=== PATIENT | female | born 1950 | race Caucasian/White ===

== ENCOUNTER 2017-02-07 11:37 | Inpatient (IN) | payer OTHER ==
[~2017-02-07] VITALS: Ht 165.1 cm; Wt 87.6 kg
[~2017-02-07 11:37] MED LIST: ASCO500T3 PO; ATOR40TA59 PO; BROM3DRO OS; CARV40CP PO; CHOL10003 PO; CIPR500T94 PO; CLON0.2T PO; CRAN500C6 PO; DIFL5DRO2 OS; EZET10TA18 PO; FENO160T PO; FERR325C PO; FLUT16SP NS; GLIP10TA13 PO; INSU100I17 SQ; INSU100V13 SQ; IPRA15SP NS; LIRA0.6P2 SQ; LISI1TAB5 PO; MULT-208 PO; RANI150C PO
[2017-02-07] MEDS ORDERED: levOFLOXacin PER PHARMACY. MC PRN (12:30)
[2017-02-07 12:39] LABS: BASO % 0 % (0-3); EOS % 1 % (0-3); HEMATOCRIT 29.9 % (36.0-47.0); HEMOGLOBIN 9.8 g/dL (12.0-15.5); LYMPH # 1.2 x10^3/uL (1.0-4.8); LYMPH % 10 % (24-48); MEAN CORPUSCULAR HEMOGLOBIN 29 pg (25-35); MEAN CORPUSCULAR HGB CONC 33 g/dL (31-37); MEAN CORPUSCULAR VOLUME 89 fL (79-100); MONO % 6 % (0-9); NEUT % 83 % (31-73); PLATELET COUNT 451 x10^3/uL (140-400); RED BLOOD COUNT 3.34 x10^6/uL (3.50-5.40); RED CELL DISTRIBUTION WIDTH 14.5 % (11.5-14.5); WHITE BLOOD COUNT 11.4 x10^3/uL (4.0-11.0)
[2017-02-07] MEDS ORDERED: VANCOMYCIN 1.5 GM in IV DEXTROSE 5 %-0.2 % NACL 500 ML IV ONE (12:45)
[2017-02-07 12:51] LABS: CALCIUM 9.5 mg/dL (8.5-10.1); CREATININE 2.5 mg/dL (0.6-1.0); GFR 19.4; POTASSIUM 4.5 mmol/L (3.5-5.1)
[2017-02-07 13:04] LABS: ALBUMIN 2.5 g/dL (3.4-5.0); ALBUMIN/GLOBULIN RATIO 0.4 (1.0-1.7); TOTAL BILIRUBIN 0.4 mg/dL (0.2-1.0); TOTAL PROTEIN 8.8 g/dL (6.4-8.2)
[2017-02-07] MEDS ORDERED: ONDANSETRON PF 4 MG/2 ML VIAL. IV PRN (13:15)
[2017-02-07] MEDS ORDERED: fentaNYL PF VIAL 100 MCG/2 ML VIAL IV PRN (13:15)
[2017-02-07] MEDS ORDERED: ACETAMINOPHEN 325 MG TABLET. PO PRN (13:15)
--- NOTE | 2017-02-07 13:21 | RAD ---
Single view of the Chest 02/07/2017 2:45 PM Indication: diabetic foot ulcer Comparison: Abdominal series January 02, 2014 Findings: There is no focal consolidation or infiltrate identified. There is no effusion or aortic calcification again noted. Heart size is normal.. No osseous abnormality is identified. Impression: No evidence of acute cardiopulmonary process.
[2017-02-07] MEDS: IV NORMAL SALINE 1000ML BAG 1,000 ML IV SCH ×3 (13:25→21:27)
--- NOTE | 2017-02-07 13:36 | RAD ---
EXAM: Right foot 3 views. HISTORY: Diabetic ulcer. COMPARISON: None. FINDINGS: There is a soft tissue defect along the medial aspect of the midfoot. There is no underlying osseous erosion suggestive of osteomyelitis. There is pes planus. Neuropathic arthropathy is moderate within the midfoot. The Lisfranc alignment appears preserved. There is diffuse soft tissue swelling. Osteopenia is moderate. No fractures are identified. There is a moderate plantar calcaneal spur. IMPRESSION: 1. No clear acute osteomyelitis by radiographs. 2. Mid foot neuropathic arthropathy with pes planus.
[2017-02-07 14:13] LABS: % BASOS 2 % (0-3); % EOS 2 % (0-5); OVALOCYTES OCC; PLT ESTIMATE INCREASED (ADEQUATE); POLYCHROMASIA SLIGHT; STOMATOCYTES OCC
[2017-02-07 14:14] LABS: TOXIC GRANULATION MOD
--- NOTE | 2017-02-07 14:28 | EKG ---
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
[2017-02-07 15:05] LABS: BILIRUBIN,URINE NEGATIVE (NEG); GLUCOSE,URINE NEGATIVE (NEG); NITRITE,URINE NEGATIVE (NEG); PH,URINE 6.5; PROTEIN,URINE NEGATIVE (NEG-TRACE)
[2017-02-07] MEDS: VANCOMYCIN PER PHARMACY MC PRN (15:06)
[2017-02-07 15:17] VITALS: BP 169/84
[2017-02-07 15:18] LABS: BACTERIA,URINE FEW /HPF (0-FEW); RBC,URINE 0 /HPF (0-2); SQUAMOUS EPITHELIAL CELL,UR OCC /LPF; WBC,URINE OCC /HPF (0-4)
[2017-02-07 15:19] VITALS: BP 169/84
--- NOTE | 2017-02-07 15:56 | PHYS DOC ---
Past Medical History Past Medical History: Diabetes-Type II, Hypertension, Other Additional Past Medical Histor: stage 3 kidney disease Past Surgical History: Appendectomy, Cholecystectomy, , Tonsillectomy , Other Alcohol Use: Occasionally Drug Use: None Adult General Chief Complaint Chief Complaint: FOOT INJURY PAIN HPI HPI Patient is a 66 year old female with history significant for hypertension, diabetes, chronic renal insufficiency, we denies any history of liver or lung problems. Patient reports she is status post a cholecystectomy and appendectomy. Patient has any tobacco alcohol or drugs. Patient reports that she has an allergy to penicillin for which she gets a rash. Patient also has an allergy to amlodipine. Patient presents ER today complaining of swelling redness and tenderness to her right foot. Patient has any fevers shakes chills nausea vomiting diarrhea. Patient has any cough cold Raynaud's. Patient reports that the symptoms and swelling started yesterday evening. Reports that she started taking some medication [id number] for her pain however her pain continued to worsen. Review of systems: Constitutional: Denies fever or chills Eyes: Denies change in visual acuity, redness, or eye pain HENT: Denies nasal congestion or sore throat Respiratory: Denies cough or shortness of breath All other systems were reviewed and found to be within normal limits, except as documented in this note. Physical exam: Constitutional: Well developed, well nourished, no acute distress, non-toxic appearance. HENT: Normocephalic, atraumatic, bilateral external ears normal, nose normal. Eyes: PERRLA, EOMI, conjunctiva normal, no discharge. Neck: Normal range of motion, no tenderness, supple, no stridor. Cardiovascular: Heart rate regular rhythm, Lungs & Thorax: Bilateral breath sounds clear to auscultation Abdomen: No abdominal distention. Skin: Warm, dry, no erythema, no rash. Back: Normal spinal curvature Extremities: Neurologic: Alert and oriented X 3, normal motor function, normal sensory function, no focal deficits noted. Psychologic: Affect normal, judgement normal, mood normal. Patient's ER physical exam was most unremarkable: Patient with significant swelling and also to her right foot. Although the patient reports that she first noticed it yesterday I find this difficult to believe given the significant swelling and ulceration on the nursing on that foot. It is likely that the patient's symptoms have been going on for several days however the patient may not have noticed. EKG as interpreted by ER physician reveals: Normal sinus rhythm without ST-T wave abnormality. No evidence of ST elevation CO. Chest x-ray as interpreted by ER physician reveals: The heart no infiltrates or effusions. Foot x-ray: No evidence of osteomyelitis Labs reviewed: Assessment and plan: 1. Diabetic foot ulcer. Patient has been started on IV antibiotics as well as sepsis protocol. Patient's lactic acid only 1.3. Patient's BUN/creatinine are markedly elevated at 75 and 2.5. Patient will need to be admitted for IV antibiotics and further observation. 2. Chronic renal insufficiency. Patient with a history of chronic renal insufficiency. 3. Diabetes: We will continue to monitor patient's blood sugar on the ED. Patient admitted to the service of Dr. Norwood. Dr. Norwood is agreed to assist with the further care of this patient. Current Medications Current Medications Current Medications Medications (Trade) Dose Ordered Sig/Nasim Start Time Stop Time Status Last Admin Dose Admin Levofloxacin/ Dextrose 150 ml @ 100 mls/hr 1X ONCE 02/07/17 12:45 02/07/17 14:14 DC 02/07/17 13:35 100 MLS/HR Levofloxacin/ Dextrose (Levaquin Per Pharmacy) 1 each PRN DAILY PRN 02/07/17 12:30 Sodium Chloride 1,000 ml @ 2,454 mls/hr Q25M 02/07/17 12:30 02/07/17 13:30 DC 02/07/17 21:27 2,454 MLS/HR Vancomycin HCl (Vanco Per Pharmacy) 1 each PRN DAILY PRN 02/07/17 12:30 02/07/17 15:06 1 EACH Vancomycin HCl 1.5 gm/Dextrose/ Sodium Chloride 500 ml @ 250 mls/hr 1X ONCE 02/07/17 12:45 02/07/17 14:44 DC 02/07/17 13:26 250 MLS/HR Allergies Allergies Allergies Coded Allergies Type Severity Reaction Last Updated Verified Penicillins Allergy Intermediate 11/22/16 No amlodipine Allergy Intermediate Swelling 11/22/16 Yes Current Patient Data Vital Signs Vital Signs Date Time Temp Pulse Resp B/P (MAP) Pulse Ox O2 Delivery O2 Flow Rate FiO2 02/07/17 11:46 98.8 92 16 190/92 (124) 99 Room Air 98.8 Lab Values Laboratory Tests Test 02/07/17 12:07 White Blood Count 11.4 x10^3/uL (4.0-11.0) H Red Blood Count 3.34 x10^6/uL (3.50-5.40) L Hemoglobin 9.8 g/dL (12.0-15.5) L Hematocrit 29.9 % (36.0-47.0) L Mean Corpuscular Volume 89 fL (79-100) Mean Corpuscular Hemoglobin 29 pg (25-35) Mean Corpuscular Hemoglobin Concent 33 g/dL (31-37) Red Cell Distribution Width 14.5 % (11.5-14.5) Platelet Count 451 x10^3/uL (140-400) H Neutrophils (%) (Auto) 83 % (31-73) H Lymphocytes (%) (Auto) 10 % (24-48) L Monocytes (%) (Auto) 6 % (0-9) Eosinophils (%) (Auto) 1 % (0-3) Basophils (%) (Auto) 0 % (0-3) Neutrophils # (Auto) 9.4 x10^3uL (1.8-7.7) H Lymphocytes # (Auto) 1.2 x10^3/uL (1.0-4.8) Monocytes # (Auto) 0.7 x10^3/uL (0.0-1.1) Eosinophils # (Auto) 0.1 x10^3/uL (0.0-0.7) Basophils # (Auto) 0.0 x10^3/uL (0.0-0.2) Segmented Neutrophils % 80 % (35-66) H Lymphocytes % 11 % (24-48) L Monocytes % 5 % (0-10) Eosinophils % 2 % (0-5) Basophils % 2 % (0-3) Toxic Granulation Mod Platelet Estimate Increased (ADEQUATE) Platelet Clumps, EDTA Present Polychromasia Slight Ovalocytes Occ Stomatocytes Occ Sodium Level 136 mmol/L (136-145) Potassium Level 4.5 mmol/L (3.5-5.1) Chloride Level 100 mmol/L (98-107) Carbon Dioxide Level 27 mmol/L (21-32) Anion Gap 9 (6-14) Blood Urea Nitrogen 75 mg/dL (7-20) H Creatinine 2.5 mg/dL (0.6-1.0) H Estimated GFR (Cockcroft-Gault) 19.4 BUN/Creatinine Ratio 30 (6-20) H Glucose Level 246 mg/dL (70-99) H Lactic Acid Level 1.3 mmol/L (0.4-2.0) Calcium Level 9.5 mg/dL (8.5-10.1) Total Bilirubin 0.4 mg/dL (0.2-1.0) Aspartate Amino Transferase (AST) 39 U/L (15-37) H Alanine Aminotransferase (ALT) 31 U/L (14-59) Alkaline Phosphatase 108 U/L (46-116) Total Protein 8.8 g/dL (6.4-8.2) H Albumin 2.5 g/dL (3.4-5.0) L Albumin/Globulin Ratio 0.4 (1.0-1.7) L Laboratory Tests 02/07/17 12:07 Laboratory Tests 02/07/17 12:07 EKG EKG [] Radiology/Procedures Radiology/Procedures [] Course & Med Decision Making Course & Med Decision Making Pertinent Labs and Imaging studies reviewed. (See chart for details) [] Dragon Disclaimer Dragon Disclaimer This electronic medical record was generated, in whole or in part, using a voice recognition dictation system. Departure Departure Impression: Primary Impression: Diabetic foot ulcer Additional Impressions: Cellulitis Renal failure Disposition: ADMITTED INPATIENT Admitting Physician: Lisa Marcos Condition: STABLE Referrals: BETTIE HICKS MD (PCP) Problem Qualifiers CHUCKY LORENZANA MD Feb 07, 2017 15:56
[2017-02-07] MEDS ORDERED: CARV40CP PO (16:49)
[2017-02-07] MEDS ORDERED: ATOR80TA72 PO (16:52)
[2017-02-07] MEDS ORDERED: INSU100I27 SQ (16:58)
[2017-02-07] MEDS ORDERED: INSU100I17 SQ (17:00)
[2017-02-07] MEDS ORDERED: DARB60DI SQ (17:07)
[2017-02-07] MEDS ORDERED: DEXTROSE 50% 25 GM / 50ML DISP.SYRIN. IV PRN (18:00)
--- NOTE | 2017-02-07 18:35 | HP ---
ADMIT DATE: 02/07/2017 CHIEF COMPLAINT: Foot pain. HISTORY OF PRESENT ILLNESS: The patient is a pleasant 66-year-old female who has diabetes. Basically, she presents with a right foot diabetic lesion. It has been occurring for several months, getting worse. She tried taking some uhmf-hky-ykbikrg medicines, but that is not working. She has associated pain. I discussed the case with the ER physician. We are going to admit the patient and consult Podiatry. PAST MEDICAL HISTORY: Diabetes, hypertension, chronic kidney disease with a 25% GFR. PAST SURGICAL HISTORY: Appendectomy, cholecystectomy, , tonsillectomy. ALLERGIES: PENICILLIN, AMLODIPINE. FAMILY HISTORY: Diabetes. SOCIAL HISTORY: She does not drink, smoke or take drugs. MEDICATIONS: Reviewed, please refer to the MRAD. REVIEW OF SYSTEMS: GENERAL: No history of weight change, weakness or fevers. SKIN: No bruising, hair changes or rashes. EYES: No blurred, double or loss of vision. NOSE AND THROAT: No history of nosebleeds, hoarseness or sore throat. HEART: No history of palpitations, chest pain or shortness of breath on exertion. LUNGS: Denies cough, hemoptysis, wheezing or shortness of breath. GASTROINTESTINAL: Denies changes in appetite, nausea, vomiting, diarrhea or constipation. GENITOURINARY: No history of frequency, urgency, hesitancy or nocturia. NEUROLOGIC: Denies history of numbness, tingling, tremor or weakness. PSYCHIATRIC: No history of panic, anxiety or depression. ENDOCRINE: No history of heat or cold intolerance, polyuria or polydipsia. EXTREMITIES: She complains of right foot pain. PHYSICAL EXAMINATION: VITAL SIGNS: Temperature afebrile, pulse 90, respirations 18, blood pressure 166/72. GENERAL: She is alert, cooperative, eating dinner. HEART: Normal S1, S2. LUNGS: Clear. ABDOMEN: Soft. EXTREMITIES: The right lower extremity has clean, dry and intact bandaging on the foot. Please see the pictures. There is a 4 x 2.5 cm diabetic lesion. ENDOCRINE: No thyromegaly. LYMPHATICS: No cervical nodes. HEMATOPOIETIC: No bruising. HEMATOLOGY: White count 11, hemoglobin 10, platelets 451. Electrolytes are normal other than BUN of 75 and a creatinine of 2.5. Urinalysis negative. ASSESSMENT AND PLAN: Diabetic foot lesion with severe peripheral vascular disease with leukocytosis, anemia, and acute on chronic renal failure with severe azotemia and hyperglycemia. The patient has been admitted. We will consult Podiatry and give her IV antibiotics, gentle IV hydration, consult Dr. Pop of the Nephrology service. Wound care nurse to evaluate and treat. Continue home medicines. PROGNOSIS: Guarded. SCOOBY TURCIOS DO DR: DEBORAH/maria fernanda JOB#: [id number] / [id number]
[2017-02-07] MEDS: INSULIN ASPART 300 UNITS/3 ML INSULN.PEN SQ SCH ×2 (19:23→21:21)
[2017-02-07 19:30] VITALS: BP 151/65
[2017-02-07] MEDS ORDERED: FAMOTIDINE 20 MG TABLET. PO PRN (21:00)
[2017-02-07] MEDS: LACTOBACILLUS RHAMNOSUS GG 1 CAPSULE. PO SCH (21:22)
[2017-02-07] MEDS: cloNIDine HCL 0.2 MG TABLET PO SCH (21:22)
[2017-02-07] MEDS: CHOLECALCIFEROL (VITAMIN D3) 1,000 UNIT TABLET PO SCH (21:22)
[2017-02-07] MEDS: FLUTICASONE 50MCG/NASAL SPRAY 16GM BOTTLE. NS SCH (21:23)
[2017-02-07] MEDS: INSULIN DETEMIR 300 UNITS/3 ML INSULN.PEN. SQ SCH (21:27)
[2017-02-07 23:12] VITALS: BP 137/44
[2017-02-08 03:22] VITALS: BP 156/65
[2017-02-08 07:00] VITALS: BP 120/69
[2017-02-08] MEDS: glipiZIDE 5 MG TABLET PO SCH ×2 (08:56→17:03)
[2017-02-08] MEDS: FERROUS SULFATE 325 MG TABLET. PO SCH ×2 (08:57→17:04)
[2017-02-08] MEDS: CARVEDILOL 12.5 MG TABLET. PO SCH ×2 (08:57→17:04)
[2017-02-08] MEDS: ATORVASTATIN CALCIUM 40 MG TABLET. PO SCH (08:58)
[2017-02-08] MEDS: cloNIDine HCL 0.2 MG TABLET PO SCH ×3 (08:58→21:03)
[2017-02-08] MEDS: hydroCHLOROthiazide 12.5 MG CAPSULE PO SCH (08:58)
[2017-02-08] MEDS: LACTOBACILLUS RHAMNOSUS GG 1 CAPSULE. PO SCH ×2 (08:58→21:02)
[2017-02-08] MEDS: FENOFIBRATE,MICRONIZED 134 MG CAPSULE PO SCH (08:58)
[2017-02-08] MEDS: LISINOPRIL 20 MG TABLET PO SCH (08:59)
[2017-02-08] MEDS: MULTIVITAMIN with MINERAL TABLET. PO SCH (08:59)
[2017-02-08] MEDS: ASCORBIC ACID 500 MG TABLET PO SCH (08:59)
[2017-02-08] MEDS: EZETIMIBE 10 MG TABLET. PO SCH (08:59)
[2017-02-08] MEDS: CHOLECALCIFEROL (VITAMIN D3) 1,000 UNIT TABLET PO SCH ×2 (08:59→21:03)
[2017-02-08] MEDS: INSULIN ASPART 300 UNITS/3 ML INSULN.PEN SQ SCH ×7 (09:00→21:00)
[2017-02-08] MEDS ORDERED: NON FORMULARY ITEM (Cranberry Extract (Cranberry) 500 MG) PO SCH (09:00)
[2017-02-08] MEDS: NON FORMULARY ITEM (Liraglutide (Victoza 3-Pak) 1.8 MG) SQ SCH (09:19)
[2017-02-08 11:01] VITALS: BP 125/54
[2017-02-08] MEDS ORDERED: ONDANSETRON PF 4 MG/2 ML VIAL. IV PRN (13:00)
[2017-02-08] MEDS: VANCOMYCIN PER PHARMACY MC PRN (14:48)
--- NOTE | 2017-02-08 14:51 | PDOC ---
PROGRESS NOTES Chief Complaint Chief Complaint 1. DM wound, draining RT medial side 2. DM 2 with hypoglycemia - hgba1c 5 3,. CKD 4, anemia of CKD stable 5,. Obesity BMI 31 6. Hypoglycemia History of Present Illness History of Present Illness Hypoglycemic this lunch - she claims she never gets that at home hgba1c 5 plus recently On hefty doses insulin (20 TID and 42 qhs) LAst saw dr heath as OP novmeber, "everything good" Wound inspected - is draining Dm x 7-8 yrs now Plan: Get ortho consult since wound is draining NO signs of osteo on xray ON IV levaquin q48 hrs bec of renal fcn Add esr tmr Dec novolog from 20 to 10 TID meal times, Keep OHA for now Keep levemir for now (BS in 200s in AM) [place] Vitals Vitals Vital Signs Date Time Temp Pulse Resp B/P (MAP) Pulse Ox O2 Delivery O2 Flow Rate FiO2 02/08/17 13:55 68 125/54 02/08/17 11:01 98.6 20 97 Room Air 98.6 Physical Exam General: Alert, Oriented X3, Cooperative Heart: Regular rate, Normal S1, Normal S2 Lungs: Clear Abdomen: Normal bowel sounds, Soft Extremities: No clubbing, No cyanosis Skin: Other (draining dorsal wound, medial side, creamy draiange, non foul smlelling, swelling RT dorsum foot, some pain on exam, round wound) Labs LABS Laboratory Tests Test 02/07/17 15:15 02/07/17 15:24 02/07/17 20:44 02/08/17 07:28 Lactic Acid Level 1.3 mmol/L (0.4-2.0) Glucose (Fingerstick) 205 mg/dL (70-99) 142 mg/dL (70-99) 124 mg/dL (70-99) Test 02/08/17 11:22 02/08/17 11:46 Glucose (Fingerstick) 65 mg/dL (70-99) 68 mg/dL (70-99) Review of Systems Review of Systems foot pain, all else is neg 14 pt reviewed Assessment and Plan Assessmemt and Plan Problems Medical Problems: (1) Renal failure Status: Acute Problems: Comment Review of Relevant I have reviewed the following items gerson (where applicable) has been applied. Labs Laboratory Tests Test 02/07/17 12:07 02/07/17 14:45 02/07/17 15:15 02/07/17 15:24 White Blood Count 11.4 x10^3/uL (4.0-11.0) Red Blood Count 3.34 x10^6/uL (3.50-5.40) Hemoglobin 9.8 g/dL (12.0-15.5) Hematocrit 29.9 % (36.0-47.0) Mean Corpuscular Volume 89 fL (79-100) Mean Corpuscular Hemoglobin 29 pg (25-35) Mean Corpuscular Hemoglobin Concent 33 g/dL (31-37) Red Cell Distribution Width 14.5 % (11.5-14.5) Platelet Count 451 x10^3/uL (140-400) Neutrophils (%) (Auto) 83 % (31-73) Lymphocytes (%) (Auto) 10 % (24-48) Monocytes (%) (Auto) 6 % (0-9) Eosinophils (%) (Auto) 1 % (0-3) Basophils (%) (Auto) 0 % (0-3) Neutrophils # (Auto) 9.4 x10^3uL (1.8-7.7) Lymphocytes # (Auto) 1.2 x10^3/uL (1.0-4.8) Monocytes # (Auto) 0.7 x10^3/uL (0.0-1.1) Eosinophils # (Auto) 0.1 x10^3/uL (0.0-0.7) Basophils # (Auto) 0.0 x10^3/uL (0.0-0.2) Segmented Neutrophils % 80 % (35-66) Lymphocytes % 11 % (24-48) Monocytes % 5 % (0-10) Eosinophils % 2 % (0-5) Basophils % 2 % (0-3) Toxic Granulation Mod Platelet Estimate Increased (ADEQUATE) Platelet Clumps, EDTA Present Polychromasia Slight Ovalocytes Occ Stomatocytes Occ Sodium Level 136 mmol/L (136-145) Potassium Level 4.5 mmol/L (3.5-5.1) Chloride Level 100 mmol/L (98-107) Carbon Dioxide Level 27 mmol/L (21-32) Anion Gap 9 (6-14) Blood Urea Nitrogen 75 mg/dL (7-20) Creatinine 2.5 mg/dL (0.6-1.0) Estimated GFR (Cockcroft-Gault) 19.4 BUN/Creatinine Ratio 30 (6-20) Glucose Level 246 mg/dL (70-99) Lactic Acid Level 1.3 mmol/L (0.4-2.0) 1.3 mmol/L (0.4-2.0) Calcium Level 9.5 mg/dL (8.5-10.1) Total Bilirubin 0.4 mg/dL (0.2-1.0) Aspartate Amino Transf (AST/SGOT) 39 U/L (15-37) Alanine Aminotransferase (ALT/SGPT) 31 U/L (14-59) Alkaline Phosphatase 108 U/L (46-116) Total Protein 8.8 g/dL (6.4-8.2) Albumin 2.5 g/dL (3.4-5.0) Albumin/Globulin Ratio 0.4 (1.0-1.7) Urine Color Yellow Urine Clarity Clear Urine pH 6.5 Urine Specific [place] 1.015 Urine Protein Negative mg/dL (NEG-TRACE) Urine Glucose (UA) Negative mg/dL (NEG) Urine Ketones (Stick) Negative mg/dL (NEG) Urine Blood Negative (NEG) Urine Nitrite Negative (NEG) Urine Bilirubin Negative (NEG) Urine Urobilinogen Dipstick 1.0 mg/dL (0.2 mg/dL) Urine Leukocyte Esterase Negative (NEG) Urine RBC 0 /HPF (0-2) Urine WBC Occ /HPF (0-4) Urine Squamous Epithelial Cells Occ /LPF Urine Bacteria Few /HPF (0-FEW) Glucose (Fingerstick) 205 mg/dL (70-99) Test 02/07/17 20:44 02/08/17 07:28 02/08/17 11:22 02/08/17 11:46 Glucose (Fingerstick) 142 mg/dL (70-99) 124 mg/dL (70-99) 65 mg/dL (70-99) 68 mg/dL (70-99) Laboratory Tests Test 02/07/17 15:15 02/07/17 15:24 02/07/17 20:44 02/08/17 07:28 Lactic Acid Level 1.3 mmol/L (0.4-2.0) Glucose (Fingerstick) 205 mg/dL (70-99) 142 mg/dL (70-99) 124 mg/dL (70-99) Test 02/08/17 11:22 02/08/17 11:46 Glucose (Fingerstick) 65 mg/dL (70-99) 68 mg/dL (70-99) Microbiology 02/07/17 Blood Culture - Preliminary, Resulted NO GROWTH AFTER 1 DAY 02/07/17 Gram Stain - Final, Complete Medications Current Medications Sodium Chloride 1,000 ml @ 2,454 mls/hr Q25M IV Last administered on 21:27; Start 02/07/17 at 12:30; Stop 02/07/17 at 13:30; Status DC Vancomycin HCl (Vanco Per Pharmacy) 1 each PRN DAILY PRN MC SEE COMMENTS Last administered on 02/07/17 15:06; Start 02/07/17 at 12:30 Levofloxacin/ Dextrose (Levaquin Per Pharmacy) 1 each PRN DAILY PRN MC SEE COMMENTS; Start 02/07/17 at 12:30 Vancomycin HCl 1.5 gm/Dextrose/ Sodium Chloride 500 ml @ 250 mls/hr 1X ONCE IV Last administered on 02/07/17 13:26; Start 02/07/17 at 12:45; Stop 02/07 at 14:44; Status DC Levofloxacin/ Dextrose 150 ml @ 100 mls/hr 1X ONCE IV Last administered on 13:35; Start 02/07/17 at 12:45; Stop 02/07/17 at 14:14; Status DC Ondansetron HCl (Zofran) 4 mg PRN Q8HRS PRN IV NAUSEA/VOMITING; Start at 13:15; Stop 02/08/17 at 13:14; Status DC Fentanyl Citrate (Fentanyl 2ml Vial) 50 mcg PRN Q2HR PRN IV PAIN; Start at 13:15; Stop 02/08/17 at 13:14; Status DC Acetaminophen (Tylenol) 650 mg PRN Q4HRS PRN PO FEVER Last administered on 19:25; Start 02/07/17 at 13:15; Stop 02/08/17 at 13:14; Status DC Levofloxacin/ Dextrose 150 ml @ 100 mls/hr Q48H IV ; Start 02/09/17 at 13:00 Lactobacillus Rhamnosus (Culturelle) 1 cap BID PO Last administered on 08:58; Start 02/07/17 at 21:00 Insulin Aspart (NovoLOG) 0-7 UNITS TIDWMEALS SQ Last administered on 19:23; Start 02/07/17 at 18:00 Dextrose (Dextrose 50%-Water Syringe) 12.5 gm PRN Q15MIN PRN IV SEE COMMENTS; Start 02/07/17 at 18:00 Ascorbic Acid (Vitamin C) 500 mg DAILY PO Last administered on 02/08/17 08:59 ; Start 02/08/17 at 09:00 Vitamin D (Vitamin D3) 1,000 unit BID PO Last administered on 02/08/17 08:59 ; Start 02/07/17 at 21:00 Clonidine HCl (Catapres) 0.2 mg TID PO Last administered on 02/08/17 13:55; Start 02/07/17 at 21:00 Darbepoetin Yuriy (Aranesp) 60 mcg Q2WKS@2100 SQ ; Start 02/21/17 at 21:00 EZETIMIBE (Zetia) 10 mg DAILY PO Last administered on 02/08/17 08:59; Start 02/08/17 at 09:00 Fluticasone Propionate (Flonase) 2 spray HS NS Last administered on 02/07/17 21:23; Start 02/07/17 at 21:00 Insulin Aspart (NovoLOG) 20 units QIDACHS SQ Last administered on 02/08/17 09 :19; Start 02/07/17 at 21:00 Insulin Detemir (Levemir) 42 units HS SQ Last administered on 02/07/17 21:27 ; Start 02/07/17 at 21:00 Atorvastatin Calcium (Lipitor) 80 mg DAILY PO Last administered on 02/08/17 08:58; Start 02/08/17 at 09:00 Carvedilol (Coreg) 25 mg BIDWMEALS PO Last administered on 02/08/17 08:57; Start 02/08/17 at 08:00 Non-Formulary Medication 500 mg DAILY PO ; Start 02/08/17 at 09:00; Status UNV Fenofibrate (Lofibra) 134 mg DAILY PO Last administered on 02/08/17 08:58; Start 02/08/17 at 09:00 Ferrous Sulfate (Feosol) 325 mg BIDWMEALS PO Last administered on 02/08/17 08 :57; Start 02/08/17 at 08:00 Glipizide (Glucotrol) 10 mg BIDBFRMEAL PO Last administered on 02/08/17 08:56 ; Start 02/08/17 at 07:30 Non-Formulary Medication 1.8 mg DAILY SQ ; Start 02/08/17 at 09:00; Status UNV Lisinopril (Prinivil) 20 mg DAILY PO Last administered on 02/08/17 08:59; Start 02/08/17 at 09:00 Multivitamins (Thera M Plus) 1 tab DAILY PO Last administered on 02/08/17 08: 59; Start 02/08/17 at 09:00 Famotidine (Pepcid) 20 mg PRN BID PRN PO DYSPEPSIA; Start 02/07/17 at 21:00 Hydrochlorothiazide (Microzide) 12.5 mg DAILY PO Last administered on 08:58; Start 02/08/17 at 09:00 Ondansetron HCl (Zofran) 4 mg PRN Q6HRS PRN IV NAUSEA/VOMITING; Start at 13:00 Active Scripts Active Reported Aranesp Syringe (Darbepoetin Yuriy In Polysorbat) 60 Mcg/0.3 Ml Disp.syrin 60 Mcg SQ Q2WKS Novolog Flexpen (Insulin Aspart) 100 Unit/1 Ml Insuln.pen 20 Unit SQ QIDACHS Levemir Flextouch (Insulin Detemir) 100 Unit/1 Ml Insuln.pen 42 Units SQ HS Atorvastatin Calcium 80 Mg Tablet 80 Mg PO DAILY Ranitidine Hcl 150 Mg Capsule 150 Mg PO PRN BID PRN Ipratropium [place] 15 Ml [place] 15 Ml NS PRN PRN Fenofibrate 160 Mg Tablet 1 Tab PO DAILY Cranberry (Cranberry Extract) 500 Mg Capsule 500 Mg PO DAILY Victoza 3-Mal (Liraglutide) 0.6 Mg/0.1 Ml Pen.injctr 1.8 Mg SQ DAILY Ascorbic Acid 500 Mg Tablet 500 Mg PO DAILY Iron (Ferrous Sulfate) 325 Mg Capsule.er 325 Mg PO BID Vitamin D3 (Cholecalciferol (Vitamin D3)) 1,000 Unit Tablet 1 Tab PO BID Lisinopril-Hctz 20-12.5 Mg Tab (Lisinopril/Hydrochlorothiazide) 1 Each Tablet 1 Tab PO BID Zetia (Ezetimibe) 10 Mg Tablet 1 Tab PO DAILY Clonidine Hcl 0.2 Mg Tablet 1 Tab PO TID Glipizide 10 Mg Tablet 1 Tab PO BID Coreg Cr (Carvedilol Phosphate) 40 Mg Cpmp.24hr 2 Cap PO DAILY Multi-Day Vitamins (Multivitamin) 1 Each Tablet 1 Tab PO DAILY Fluticasone Propionate Nasal [place] (Fluticasone Propionate) 16 Gm [place].susp 2 [place] NS HS Vitals/I & O Vital Sign - Last 24 Hours 02/07/17 02/07/17 02/07/17 02/07/17 15:17 15:19 19:30 19:50 Temp 98.2 98.2 99.1 98.2 98.2 99.1 Pulse 116 116 99 Resp 16 16 20 B/P (MAP) 169/84 (112) 169/84 (112) 151/65 (93) Pulse Ox 98 98 100 O2 Delivery Room Air Room Air Room Air Room Air 02/07/17 02/07/17 02/08/17 02/08/17 21:22 23:12 03:22 07:00 Temp 101.7 98.2 98.8 101.7 98.2 98.8 Pulse 99 100 90 86 Resp 20 20 20 B/P (MAP) 151/65 137/44 (75) 156/65 (95) 120/69 (86) Pulse Ox 97 98 98 O2 Delivery Room Air Room Air Room Air 02/08/17 02/08/17 02/08/17 02/08/17 08:00 08:57 08:58 08:59 Pulse 86 86 86 B/P (MAP) 120/69 120/69 120/69 O2 Delivery Room Air 02/08/17 02/08/17 11:01 13:55 Temp 98.6 98.6 Pulse 68 68 Resp 20 B/P (MAP) 125/54 (77) 125/54 Pulse Ox 97 O2 Delivery Room Air Intake and Output 02/07/17 02/07/17 02/08/17 15:00 23:00 07:00 Intake Total 1000 ml 400 ml 410 ml Output Total 300 ml 800 ml Balance 1000 ml 100 ml -390 ml KELLEN HORNER MD Feb 08, 2017 14:51
[2017-02-08 15:17] VITALS: BP 118/42
[2017-02-08] MEDS: FUROSEMIDE 40 MG TABLET. PO SCH (17:02)
[2017-02-08] MEDS: VANCOMYCIN 1.25 GM in IV DEXTROSE 5% 250 ML IV SCH (17:05)
[2017-02-08 19:00] VITALS: BP 107/62
--- NOTE | 2017-02-08 20:15 | CONS ---
DATE OF CONSULTATION: 02/08/2017 REQUESTING PHYSICIAN: Hospitalist. REASON FOR CONSULTATION: Renal failure. HISTORY OF PRESENT ILLNESS: This is a 66-year-old female with history of diabetes mellitus and hypertension. She has apparent underlying chronic kidney disease, which she states is "stage 3". She follows with Dr. Walt Pop's practice. She is currently admitted with right diabetic foot ulcer. In this setting, Nephrology evaluation is requested. At the present time, her creatinine is 2.5 with GFR of 19 mL per minute. No nausea, vomiting, diarrhea or difficulty with urination. PAST MEDICAL HISTORY: 1. Diabetes mellitus, hypertension, chronic kidney disease stage 3/4. 2. Peripheral neuropathy. 3. Cholecystectomy. 4. section. 5. Hypertension. ALLERGIES: PENICILLIN AND AMLODIPINE. MEDICATIONS: Per med list. FAMILY HISTORY: Noncontributory. SOCIAL HISTORY: The patient resides with assistance. REVIEW OF SYSTEMS: No headaches, sinus problem, nasal drainage, epistaxis, change in vision or hearing. No difficulty swallowing. No fever, chills, cough, sputum production or hemoptysis. No chest pain, shortness of breath, PND, orthopnea, dyspnea on exertion. No abdominal pain or upper or lower gastrointestinal blood loss. No nausea, vomiting, diarrhea, seizures or malignancies. PHYSICAL EXAMINATION: GENERAL APPEARANCE: The patient awake and conversant. HEENT: Clear. NECK: No increased JVD. No thyromegaly, masses or adenopathy. LUNGS: Clear. CARDIAC: Without S3 or rub. ABDOMEN: Soft, nontender, no bruits. EXTREMITIES: Bilateral lower extremity edema of 2+. She has swelling on the dorsum of the right foot with drainage. NEUROLOGIC: Nonfocal localizing. PSYCHIATRIC: Fair attention to detail, appropriate affect. LABORATORY DATA: Sodium 136, potassium 4.5 chloride 100, CO2 27, BUN 75, creatinine 2.5, GFR 19. Albumin 2.5. White count 11.4, hemoglobin 9.8 and hematocrit 29.9%. Urinalysis: Specific gravity 1.015, negative protein and negative blood. IMPRESSION: 1. Chronic kidney disease stage 3/4. She certainly has acute exacerbation or progression. She appears at this point in time to clearly have chronic kidney disease stage 4 and has associated edema. 2. Edema of lower extremity with right diabetic foot ulcer. 3. Anemia of chronic kidney disease. RECOMMENDATIONS: 1. Continue antibiotics pending culture results. 2. Wound care. 3. Diuresis. 4. Epogen for anemia of chronic kidney disease. 5. If she does not improve, may need initiation of dialysis during this hospital stay ____. We will follow with you. HONG ANDERSON MD DR: KATEY/maria fernanda JOB#: [id number] / [id number]
[2017-02-08] MEDS: INSULIN DETEMIR 300 UNITS/3 ML INSULN.PEN. SQ SCH (21:00)
[2017-02-08] MEDS: FLUTICASONE 50MCG/NASAL SPRAY 16GM BOTTLE. NS SCH (21:02)
[2017-02-08] MEDS: oxyCODONE/APAP 5/325 1 TAB TABLET PO PRN (22:33)
[2017-02-08 23:00] VITALS: BP 154/68
[2017-02-09 02:42] VITALS: BP 133/63
[2017-02-09 05:04] LABS: BASO % 0 % (0-3); EOS % 1 % (0-3); HEMATOCRIT 25.8 % (36.0-47.0); HEMOGLOBIN 8.4 g/dL (12.0-15.5); LYMPH # 1.3 x10^3/uL (1.0-4.8); LYMPH % 15 % (24-48); MEAN CORPUSCULAR HEMOGLOBIN 29 pg (25-35); MEAN CORPUSCULAR HGB CONC 33 g/dL (31-37); MEAN CORPUSCULAR VOLUME 90 fL (79-100); MONO % 8 % (0-9); NEUT % 76 % (31-73); PLATELET COUNT 372 x10^3/uL (140-400); RED BLOOD COUNT 2.87 x10^6/uL (3.50-5.40); RED CELL DISTRIBUTION WIDTH 14.1 % (11.5-14.5); WHITE BLOOD COUNT 8.7 x10^3/uL (4.0-11.0)
[2017-02-09 05:25] LABS: CALCIUM 8.5 mg/dL (8.5-10.1); CREATININE 2.6 mg/dL (0.6-1.0); GFR 18.5; POTASSIUM 4.4 mmol/L (3.5-5.1)
[2017-02-09 07:00] VITALS: BP 155/67
[2017-02-09] MEDS: INSULIN ASPART 300 UNITS/3 ML INSULN.PEN SQ SCH ×7 (08:53→21:00)
[2017-02-09] MEDS: ATORVASTATIN CALCIUM 40 MG TABLET. PO SCH (08:56)
[2017-02-09] MEDS: MULTIVITAMIN with MINERAL TABLET. PO SCH (08:56)
[2017-02-09] MEDS: LACTOBACILLUS RHAMNOSUS GG 1 CAPSULE. PO SCH ×2 (08:56→21:09)
[2017-02-09] MEDS: LISINOPRIL 20 MG TABLET PO SCH (08:56)
[2017-02-09] MEDS: hydroCHLOROthiazide 12.5 MG CAPSULE PO SCH (08:57)
[2017-02-09] MEDS: CARVEDILOL 12.5 MG TABLET. PO SCH ×2 (08:57→17:29)
[2017-02-09] MEDS: FENOFIBRATE,MICRONIZED 134 MG CAPSULE PO SCH (08:57)
[2017-02-09] MEDS: ASCORBIC ACID 500 MG TABLET PO SCH (08:58)
[2017-02-09] MEDS: glipiZIDE 5 MG TABLET PO SCH ×2 (08:58→17:30)
[2017-02-09] MEDS: FUROSEMIDE 40 MG TABLET. PO SCH (08:58)
[2017-02-09] MEDS: cloNIDine HCL 0.2 MG TABLET PO SCH ×3 (08:58→21:10)
[2017-02-09] MEDS: FERROUS SULFATE 325 MG TABLET. PO SCH ×2 (08:58→17:29)
[2017-02-09] MEDS: EZETIMIBE 10 MG TABLET. PO SCH (08:59)
[2017-02-09] MEDS: CHOLECALCIFEROL (VITAMIN D3) 1,000 UNIT TABLET PO SCH ×2 (08:59→21:09)
[2017-02-09] MEDS: NON FORMULARY ITEM (Liraglutide (Victoza 3-Pak) 1.8 MG) SQ SCH (08:59)
--- NOTE | 2017-02-09 10:42 | PDOC ---
PROGRESS NOTES Chief Complaint Chief Complaint 1. DM wound, draining RT medial side 2. DM 2 with hypoglycemia - hgba1c 5 3,. CKD 4, anemia of CKD stable 5,. Obesity BMI 31 6. Hypoglycemia, resolved 7. PCN adverse rxn History of Present Illness History of Present Illness no more hypogylcemic episodes with my adjustment insulin friday Hgba 1c was 5 recently Draining foot lesion drying up - needs a change of dressing NO fevers, WBC normal from 14 on admit ESR > 140 BC prelim neg claims gets rash on PCN Wound GS: GRAM STAIN Final WBCS NONE SEEN GRAM POSITIVE COCCI MODERATE GRAM NEGATIVE COCCI MODERATE ANAEROBIC-AEROBIC CULTURE PENDING ANAEROBIC RES 1 PENDING AEROBIC CULT Preliminary Preliminary report AEROBIC RES 1 Preliminary Staphylococcus aureus Heavy growth AEROBIC RES 2 Preliminary Comment Beta hemolytic Streptococcus, group A Heavy growth Penicillin and ampicillin are drugs of choice for treatment of beta-hemolytic streptococcal infections. Susceptibility testing of penicillins and other beta-lactam agents approved by the FDA for treatment of beta-hemolytic streptococcal infections need not be performed routinely because nonsusceptible isolates are extremely rare in any beta-hemolytic streptococcus and have not been reported for Streptococcus pyogenes (group A). (CLSI 2011) Performed at: [facility] Lab[address] [id number] [employer] Helper: Luisa iDggs MD, Phone: [phone] PLAN: AWAIT ID AND PODIATRY CONSULTS CONT VANC FOR NOW GIVEN STAPH ISOLATE FOLLOW CX WOULD KEEP CURRENT INSULIN REGIMEN Vitals Vitals Vital Signs Date Time Temp Pulse Resp B/P (MAP) Pulse Ox O2 Delivery O2 Flow Rate FiO2 02/09/17 08:58 74 155/67 02/09/17 07:00 98.0 16 98 Room Air 98.0 Physical Exam General: Alert, Oriented X3, Cooperative Heart: Regular rate, Normal S1, Normal S2 Lungs: Clear Abdomen: Normal bowel sounds, Soft Extremities: No clubbing, No cyanosis Skin: Other (draining dorsal wound, medial side, creamy draiange, non foul smlelling, swelling RT dorsum foot, some pain on exam, round wound) Labs LABS Laboratory Tests Test 02/08/17 11:22 02/08/17 11:46 02/08/17 16:22 02/09/17 03:25 Glucose (Fingerstick) 65 mg/dL (70-99) 68 mg/dL (70-99) 172 mg/dL (70-99) White Blood Count 8.7 x10^3/uL (4.0-11.0) Red Blood Count 2.87 x10^6/uL (3.50-5.40) Hemoglobin 8.4 g/dL (12.0-15.5) Hematocrit 25.8 % (36.0-47.0) Mean Corpuscular Volume 90 fL (79-100) Mean Corpuscular Hemoglobin 29 pg (25-35) Mean Corpuscular Hemoglobin Concent 33 g/dL (31-37) Red Cell Distribution Width 14.1 % (11.5-14.5) Platelet Count 372 x10^3/uL (140-400) Neutrophils (%) (Auto) 76 % (31-73) Lymphocytes (%) (Auto) 15 % (24-48) Monocytes (%) (Auto) 8 % (0-9) Eosinophils (%) (Auto) 1 % (0-3) Basophils (%) (Auto) 0 % (0-3) Neutrophils # (Auto) 6.6 x10^3uL (1.8-7.7) Lymphocytes # (Auto) 1.3 x10^3/uL (1.0-4.8) Monocytes # (Auto) 0.7 x10^3/uL (0.0-1.1) Eosinophils # (Auto) 0.1 x10^3/uL (0.0-0.7) Basophils # (Auto) 0.0 x10^3/uL (0.0-0.2) Erythrocyte Sedimentation Rate > 140 (0-25) Sodium Level 138 mmol/L (136-145) Potassium Level 4.4 mmol/L (3.5-5.1) Chloride Level 105 mmol/L (98-107) Carbon Dioxide Level 26 mmol/L (21-32) Anion Gap 7 (6-14) Blood Urea Nitrogen 51 mg/dL (7-20) Creatinine 2.6 mg/dL (0.6-1.0) Estimated GFR (Cockcroft-Gault) 18.5 Glucose Level 147 mg/dL (70-99) Calcium Level 8.5 mg/dL (8.5-10.1) Test 02/09/17 07:14 Glucose (Fingerstick) 139 mg/dL (70-99) Review of Systems Review of Systems foot pain, no fevers, soa, cp, emesis, abd pain Assessment and Plan Assessmemt and Plan Problems Medical Problems: (1) Renal failure Status: Acute Problems: Comment Review of Relevant I have reviewed the following items gerson (where applicable) has been applied. Labs Laboratory Tests Test 02/07/17 12:07 02/07/17 14:45 02/07/17 15:15 02/07/17 15:24 White Blood Count 11.4 x10^3/uL (4.0-11.0) Red Blood Count 3.34 x10^6/uL (3.50-5.40) Hemoglobin 9.8 g/dL (12.0-15.5) Hematocrit 29.9 % (36.0-47.0) Mean Corpuscular Volume 89 fL (79-100) Mean Corpuscular Hemoglobin 29 pg (25-35) Mean Corpuscular Hemoglobin Concent 33 g/dL (31-37) Red Cell Distribution Width 14.5 % (11.5-14.5) Platelet Count 451 x10^3/uL (140-400) Neutrophils (%) (Auto) 83 % (31-73) Lymphocytes (%) (Auto) 10 % (24-48) Monocytes (%) (Auto) 6 % (0-9) Eosinophils (%) (Auto) 1 % (0-3) Basophils (%) (Auto) 0 % (0-3) Neutrophils # (Auto) 9.4 x10^3uL (1.8-7.7) Lymphocytes # (Auto) 1.2 x10^3/uL (1.0-4.8) Monocytes # (Auto) 0.7 x10^3/uL (0.0-1.1) Eosinophils # (Auto) 0.1 x10^3/uL (0.0-0.7) Basophils # (Auto) 0.0 x10^3/uL (0.0-0.2) Segmented Neutrophils % 80 % (35-66) Lymphocytes % 11 % (24-48) Monocytes % 5 % (0-10) Eosinophils % 2 % (0-5) Basophils % 2 % (0-3) Toxic Granulation Mod Platelet Estimate Increased (ADEQUATE) Platelet Clumps, EDTA Present Polychromasia Slight Ovalocytes Occ Stomatocytes Occ Sodium Level 136 mmol/L (136-145) Potassium Level 4.5 mmol/L (3.5-5.1) Chloride Level 100 mmol/L (98-107) Carbon Dioxide Level 27 mmol/L (21-32) Anion Gap 9 (6-14) Blood Urea Nitrogen 75 mg/dL (7-20) Creatinine 2.5 mg/dL (0.6-1.0) Estimated GFR (Cockcroft-Gault) 19.4 BUN/Creatinine Ratio 30 (6-20) Glucose Level 246 mg/dL (70-99) Lactic Acid Level 1.3 mmol/L (0.4-2.0) 1.3 mmol/L (0.4-2.0) Calcium Level 9.5 mg/dL (8.5-10.1) Total Bilirubin 0.4 mg/dL (0.2-1.0) Aspartate Amino Transf (AST/SGOT) 39 U/L (15-37) Alanine Aminotransferase (ALT/SGPT) 31 U/L (14-59) Alkaline Phosphatase 108 U/L (46-116) Total Protein 8.8 g/dL (6.4-8.2) Albumin 2.5 g/dL (3.4-5.0) Albumin/Globulin Ratio 0.4 (1.0-1.7) Urine Color Yellow Urine Clarity Clear Urine pH 6.5 Urine Specific [place] 1.015 Urine Protein Negative mg/dL (NEG-TRACE) Urine Glucose (UA) Negative mg/dL (NEG) Urine Ketones (Stick) Negative mg/dL (NEG) Urine Blood Negative (NEG) Urine Nitrite Negative (NEG) Urine Bilirubin Negative (NEG) Urine Urobilinogen Dipstick 1.0 mg/dL (0.2 mg/dL) Urine Leukocyte Esterase Negative (NEG) Urine RBC 0 /HPF (0-2) Urine WBC Occ /HPF (0-4) Urine Squamous Epithelial Cells Occ /LPF Urine Bacteria Few /HPF (0-FEW) Glucose (Fingerstick) 205 mg/dL (70-99) Test 02/07/17 20:44 02/08/17 07:28 02/08/17 11:22 02/08/17 11:46 Glucose (Fingerstick) 142 mg/dL (70-99) 124 mg/dL (70-99) 65 mg/dL (70-99) 68 mg/dL (70-99) Test 02/08/17 16:22 02/09/17 03:25 02/09/17 07:14 Glucose (Fingerstick) 172 mg/dL (70-99) 139 mg/dL (70-99) White Blood Count 8.7 x10^3/uL (4.0-11.0) Red Blood Count 2.87 x10^6/uL (3.50-5.40) Hemoglobin 8.4 g/dL (12.0-15.5) Hematocrit 25.8 % (36.0-47.0) Mean Corpuscular Volume 90 fL (79-100) Mean Corpuscular Hemoglobin 29 pg (25-35) Mean Corpuscular Hemoglobin Concent 33 g/dL (31-37) Red Cell Distribution Width 14.1 % (11.5-14.5) Platelet Count 372 x10^3/uL (140-400) Neutrophils (%) (Auto) 76 % (31-73) Lymphocytes (%) (Auto) 15 % (24-48) Monocytes (%) (Auto) 8 % (0-9) Eosinophils (%) (Auto) 1 % (0-3) Basophils (%) (Auto) 0 % (0-3) Neutrophils # (Auto) 6.6 x10^3uL (1.8-7.7) Lymphocytes # (Auto) 1.3 x10^3/uL (1.0-4.8) Monocytes # (Auto) 0.7 x10^3/uL (0.0-1.1) Eosinophils # (Auto) 0.1 x10^3/uL (0.0-0.7) Basophils # (Auto) 0.0 x10^3/uL (0.0-0.2) Erythrocyte Sedimentation Rate > 140 (0-25) Sodium Level 138 mmol/L (136-145) Potassium Level 4.4 mmol/L (3.5-5.1) Chloride Level 105 mmol/L (98-107) Carbon Dioxide Level 26 mmol/L (21-32) Anion Gap 7 (6-14) Blood Urea Nitrogen 51 mg/dL (7-20) Creatinine 2.6 mg/dL (0.6-1.0) Estimated GFR (Cockcroft-Gault) 18.5 Glucose Level 147 mg/dL (70-99) Calcium Level 8.5 mg/dL (8.5-10.1) Laboratory Tests Test 02/08/17 11:22 02/08/17 11:46 02/08/17 16:22 02/09/17 03:25 Glucose (Fingerstick) 65 mg/dL (70-99) 68 mg/dL (70-99) 172 mg/dL (70-99) White Blood Count 8.7 x10^3/uL (4.0-11.0) Red Blood Count 2.87 x10^6/uL (3.50-5.40) Hemoglobin 8.4 g/dL (12.0-15.5) Hematocrit 25.8 % (36.0-47.0) Mean Corpuscular Volume 90 fL (79-100) Mean Corpuscular Hemoglobin 29 pg (25-35) Mean Corpuscular Hemoglobin Concent 33 g/dL (31-37) Red Cell Distribution Width 14.1 % (11.5-14.5) Platelet Count 372 x10^3/uL (140-400) Neutrophils (%) (Auto) 76 % (31-73) Lymphocytes (%) (Auto) 15 % (24-48) Monocytes (%) (Auto) 8 % (0-9) Eosinophils (%) (Auto) 1 % (0-3) Basophils (%) (Auto) 0 % (0-3) Neutrophils # (Auto) 6.6 x10^3uL (1.8-7.7) Lymphocytes # (Auto) 1.3 x10^3/uL (1.0-4.8) Monocytes # (Auto) 0.7 x10^3/uL (0.0-1.1) Eosinophils # (Auto) 0.1 x10^3/uL (0.0-0.7) Basophils # (Auto) 0.0 x10^3/uL (0.0-0.2) Erythrocyte Sedimentation Rate > 140 (0-25) Sodium Level 138 mmol/L (136-145) Potassium Level 4.4 mmol/L (3.5-5.1) Chloride Level 105 mmol/L (98-107) Carbon Dioxide Level 26 mmol/L (21-32) Anion Gap 7 (6-14) Blood Urea Nitrogen 51 mg/dL (7-20) Creatinine 2.6 mg/dL (0.6-1.0) Estimated GFR (Cockcroft-Gault) 18.5 Glucose Level 147 mg/dL (70-99) Calcium Level 8.5 mg/dL (8.5-10.1) Test 02/09/17 07:14 Glucose (Fingerstick) 139 mg/dL (70-99) Microbiology 02/07/17 Blood Culture - Preliminary, Resulted NO GROWTH AFTER 1 DAY 02/07/17 Gram Stain - Final, Complete Medications Current Medications Sodium Chloride 1,000 ml @ 2,454 mls/hr Q25M IV Last administered on 21:27; Start 02/07/17 at 12:30; Stop 02/07/17 at 13:30; Status DC Vancomycin HCl (Vanco Per Pharmacy) 1 each PRN DAILY PRN MC SEE COMMENTS Last administered on 02/08/17 14:48; Start 02/07/17 at 12:30 Levofloxacin/ Dextrose (Levaquin Per Pharmacy) 1 each PRN DAILY PRN MC SEE COMMENTS; Start 02/07/17 at 12:30 Vancomycin HCl 1.5 gm/Dextrose/ Sodium Chloride 500 ml @ 250 mls/hr 1X ONCE IV Last administered on 02/07/17 13:26; Start 02/07/17 at 12:45; Stop 02/07 at 14:44; Status DC Levofloxacin/ Dextrose 150 ml @ 100 mls/hr 1X ONCE IV Last administered on 13:35; Start 02/07/17 at 12:45; Stop 02/07/17 at 14:14; Status DC Ondansetron HCl (Zofran) 4 mg PRN Q8HRS PRN IV NAUSEA/VOMITING; Start at 13:15; Stop 02/08/17 at 13:14; Status DC Fentanyl Citrate (Fentanyl 2ml Vial) 50 mcg PRN Q2HR PRN IV PAIN; Start at 13:15; Stop 02/08/17 at 13:14; Status DC Acetaminophen (Tylenol) 650 mg PRN Q4HRS PRN PO FEVER Last administered on 19:25; Start 02/07/17 at 13:15; Stop 02/08/17 at 13:14; Status DC Levofloxacin/ Dextrose 150 ml @ 100 mls/hr Q48H IV ; Start 02/09/17 at 13:00 Lactobacillus Rhamnosus (Culturelle) 1 cap BID PO Last administered on 08:56; Start 02/07/17 at 21:00 Insulin Aspart (NovoLOG) 0-7 UNITS TIDWMEALS SQ Last administered on 17:18; Start 02/07/17 at 18:00 Dextrose (Dextrose 50%-Water Syringe) 12.5 gm PRN Q15MIN PRN IV SEE COMMENTS; Start 02/07/17 at 18:00 Ascorbic Acid (Vitamin C) 500 mg DAILY PO Last administered on 02/09/17 08:58 ; Start 02/08/17 at 09:00 Vitamin D (Vitamin D3) 1,000 unit BID PO Last administered on 02/09/17 08:59 ; Start 02/07/17 at 21:00 Clonidine HCl (Catapres) 0.2 mg TID PO Last administered on 02/09/17 08:58; Start 02/07/17 at 21:00 Darbepoetin Yuriy (Aranesp) 60 mcg Q2WKS@2100 SQ ; Start 02/21/17 at 21:00 EZETIMIBE (Zetia) 10 mg DAILY PO Last administered on 02/09/17 08:59; Start 02/08/17 at 09:00 Fluticasone Propionate (Flonase) 2 spray HS NS Last administered on 02/08/17 21:02; Start 02/07/17 at 21:00 Insulin Aspart (NovoLOG) 20 units QIDACHS SQ Last administered on 02/08/17 09 :19; Start 02/07/17 at 21:00; Stop 02/08/17 at 14:49; Status DC Insulin Detemir (Levemir) 42 units HS SQ Last administered on 02/07/17 21:27 ; Start 02/07/17 at 21:00 Atorvastatin Calcium (Lipitor) 80 mg DAILY PO Last administered on 02/09/17 08:56; Start 02/08/17 at 09:00 Carvedilol (Coreg) 25 mg BIDWMEALS PO Last administered on 02/09/17 08:57; Start 02/08/17 at 08:00 Non-Formulary Medication 500 mg DAILY PO ; Start 02/08/17 at 09:00; Status UNV Fenofibrate (Lofibra) 134 mg DAILY PO Last administered on 02/09/17 08:57; Start 02/08/17 at 09:00 Ferrous Sulfate (Feosol) 325 mg BIDWMEALS PO Last administered on 02/09/17 08 :58; Start 02/08/17 at 08:00 Glipizide (Glucotrol) 10 mg BIDBFRMEAL PO Last administered on 02/09/17 08:58 ; Start 02/08/17 at 07:30 Non-Formulary Medication 1.8 mg DAILY SQ ; Start 02/08/17 at 09:00; Status UNV Lisinopril (Prinivil) 20 mg DAILY PO Last administered on 02/09/17 08:56; Start 02/08/17 at 09:00 Multivitamins (Thera M Plus) 1 tab DAILY PO Last administered on 02/09/17 08: 56; Start 02/08/17 at 09:00 Famotidine (Pepcid) 20 mg PRN BID PRN PO DYSPEPSIA; Start 02/07/17 at 21:00 Hydrochlorothiazide (Microzide) 12.5 mg DAILY PO Last administered on 08:57; Start 02/08/17 at 09:00 Ondansetron HCl (Zofran) 4 mg PRN Q6HRS PRN IV NAUSEA/VOMITING; Start at 13:00 Vancomycin HCl 1.25 gm/Dextrose 250 ml @ 167 mls/hr Q24H IV Last administered on 02/08/17 17:05; Start 02/08/17 at 15:00 Vancomycin HCl 1 each 1X ONCE MC ; Start 02/09/17 at 14:30; Stop 02/09/17 at 14:31 Insulin Aspart (NovoLOG) 10 units QIDACHS SQ Last administered on 02/09/17 09 :09; Start 02/08/17 at 16:30 Furosemide (Lasix) 40 mg DAILY PO Last administered on 02/09/17 08:58; Start 02/08/17 at 16:30 Oxycodone/ Acetaminophen (Percocet 5/325) 1 tab PRN Q6HRS PRN PO SEVERE PAIN Last administered on 02/08/17t 22:33; Start 02/08/17 at 22:30 Active Scripts Active Reported Aranesp Syringe (Darbepoetin Yuriy In Polysorbat) 60 Mcg/0.3 Ml Disp.syrin 60 Mcg SQ Q2WKS Novolog Flexpen (Insulin Aspart) 100 Unit/1 Ml Insuln.pen 20 Unit SQ QIDACHS Levemir Flextouch (Insulin Detemir) 100 Unit/1 Ml Insuln.pen 42 Units SQ HS Atorvastatin Calcium 80 Mg Tablet 80 Mg PO DAILY Ranitidine Hcl 150 Mg Capsule 150 Mg PO PRN BID PRN Ipratropium [place] 15 Ml [place] 15 Ml NS PRN PRN Fenofibrate 160 Mg Tablet 1 Tab PO DAILY Cranberry (Cranberry Extract) 500 Mg Capsule 500 Mg PO DAILY Victoza 3-Mal (Liraglutide) 0.6 Mg/0.1 Ml Pen.injctr 1.8 Mg SQ DAILY Ascorbic Acid 500 Mg Tablet 500 Mg PO DAILY Iron (Ferrous Sulfate) 325 Mg Capsule.er 325 Mg PO BID Vitamin D3 (Cholecalciferol (Vitamin D3)) 1,000 Unit Tablet 1 Tab PO BID Lisinopril-Hctz 20-12.5 Mg Tab (Lisinopril/Hydrochlorothiazide) 1 Each Tablet 1 Tab PO BID Zetia (Ezetimibe) 10 Mg Tablet 1 Tab PO DAILY Clonidine Hcl 0.2 Mg Tablet 1 Tab PO TID Glipizide 10 Mg Tablet 1 Tab PO BID Coreg Cr (Carvedilol Phosphate) 40 Mg Cpmp.24hr 2 Cap PO DAILY Multi-Day Vitamins (Multivitamin) 1 Each Tablet 1 Tab PO DAILY Fluticasone Propionate Nasal [place] (Fluticasone Propionate) 16 Gm [place].susp 2 [place] NS HS Vitals/I & O Vital Sign - Last 24 Hours 02/08/17 02/08/17 02/08/17 02/08/17 11:01 13:55 15:17 17:04 Temp 98.6 98.8 98.6 98.8 Pulse 68 68 67 67 Resp 20 20 B/P (MAP) 125/54 (77) 125/54 118/42 (67) 118/42 Pulse Ox 97 98 O2 Delivery Room Air Room Air 02/08/17 02/08/17 02/08/17 02/08/17 19:00 20:00 21:03 22:33 Temp 98.7 98.7 Pulse 84 84 Resp 16 B/P (MAP) 107/62 (77) 107/62 Pulse Ox 98 O2 Delivery Room Air Room Air Room Air 02/08/17 02/08/17 02/09/17 02/09/17 23:00 23:53 02:42 07:00 Temp 99.8 97.7 98.0 99.8 97.7 98.0 Pulse 87 76 74 Resp 16 16 16 B/P (MAP) 154/68 (96) 133/63 (86) 155/67 (96) Pulse Ox 94 98 98 O2 Delivery Room Air Room Air Room Air Room Air 02/09/17 02/09/17 02/09/17 08:56 08:57 08:58 Pulse 74 74 74 B/P (MAP) 155/67 155/67 155/67 Intake and Output 02/08/17 02/08/17 02/09/17 15:00 23:00 07:00 Intake Total 940 ml 300 ml Output Total 700 ml 300 ml Balance 240 ml 0 ml KELLEN HORNER MD Feb 09, 2017 10:42
[2017-02-09 10:44] VITALS: BP 116/83
[2017-02-09 15:00] VITALS: BP 113/27
[2017-02-09] MEDS: VANCOMYCIN PER PHARMACY MC PRN (15:08)
[2017-02-09] MEDS: VANCOMYCIN 1.25 GM in IV DEXTROSE 5% 250 ML IV SCH (15:19)
[2017-02-09] MEDS: oxyCODONE/APAP 5/325 1 TAB TABLET PO PRN ×2 (15:22→21:10)
[2017-02-09 19:00] VITALS: BP 120/52
[2017-02-09] MEDS: FLUTICASONE 50MCG/NASAL SPRAY 16GM BOTTLE. NS SCH (21:10)
[2017-02-09] MEDS: INSULIN DETEMIR 300 UNITS/3 ML INSULN.PEN. SQ SCH (21:21)
[2017-02-09 23:02] VITALS: BP 139/50
[2017-02-10 03:52] VITALS: BP 118/51
[2017-02-10 07:00] VITALS: BP 140/58
[2017-02-10] MEDS: INSULIN ASPART 300 UNITS/3 ML INSULN.PEN SQ SCH ×7 (08:00→21:00)
[2017-02-10] MEDS: LACTOBACILLUS RHAMNOSUS GG 1 CAPSULE. PO SCH ×2 (09:00→21:05)
[2017-02-10] MEDS: FUROSEMIDE 40 MG TABLET. PO SCH (09:49)
[2017-02-10] MEDS: ATORVASTATIN CALCIUM 40 MG TABLET. PO SCH (09:49)
[2017-02-10] MEDS: CHOLECALCIFEROL (VITAMIN D3) 1,000 UNIT TABLET PO SCH ×2 (09:49→21:12)
[2017-02-10] MEDS: FENOFIBRATE,MICRONIZED 134 MG CAPSULE PO SCH (09:49)
[2017-02-10] MEDS: FERROUS SULFATE 325 MG TABLET. PO SCH ×2 (09:49→18:32)
[2017-02-10] MEDS: ASCORBIC ACID 500 MG TABLET PO SCH (09:49)
[2017-02-10] MEDS: CARVEDILOL 12.5 MG TABLET. PO SCH ×2 (09:50→18:32)
[2017-02-10] MEDS: hydroCHLOROthiazide 12.5 MG CAPSULE PO SCH (09:50)
[2017-02-10] MEDS: LISINOPRIL 20 MG TABLET PO SCH (09:50)
[2017-02-10] MEDS: MULTIVITAMIN with MINERAL TABLET. PO SCH ×2 (09:50→21:06)
[2017-02-10] MEDS: EZETIMIBE 10 MG TABLET. PO SCH (09:51)
[2017-02-10] MEDS: cloNIDine HCL 0.2 MG TABLET PO SCH ×3 (09:51→21:05)
[2017-02-10] MEDS: glipiZIDE 5 MG TABLET PO SCH ×2 (09:51→18:33)
--- NOTE | 2017-02-10 10:57 | PDOC ---
PROGRESS NOTES Chief Complaint Chief Complaint 1. DM wound, draining RT medial side, suspect osteo right foot due to marked ESR 2. fever and tachycardia on admit, sepsis 3. DM 2 with hypoglycemia - last Hgb a1c 5.7 4,. CKD 4 and , anemia of CKD stable 5,. Obesity BMI 31 6. Hypoglycemia, resolved 7. PCN adverse rxn History of Present Illness History of Present Illness Hgba 1c was 5.7 recently Draining foot lesion drying up WBC 14 on admit ESR > 140, will eval with MRI, ID consult BC prelim neg PCN allergy Wound GS: GRAM STAIN Final WBCS NONE SEEN GRAM POSITIVE COCCI MODERATE GRAM NEGATIVE COCCI MODERATE ANAEROBIC-AEROBIC CULTURE PENDING ANAEROBIC RES 1 PENDING AEROBIC CULT Preliminary Preliminary report AEROBIC RES 1 Preliminary Staphylococcus aureus Heavy growth AEROBIC RES 2 Preliminary Comment Beta hemolytic Streptococcus, group A Heavy growth Penicillin and ampicillin are drugs of choice for treatment of beta-hemolytic streptococcal infections. Susceptibility testing of penicillins and other beta-lactam agents approved by the FDA for treatment of beta-hemolytic streptococcal infections need not be performed routinely because nonsusceptible isolates are extremely rare in any beta-hemolytic streptococcus and have not been reported for Streptococcus pyogenes (group A). (CLSI 2011) Performed at: [address] [id number] [employer] Operator: Luisa Diggs MD, Phone: [phone] PLAN: AWAIT ID AND PODIATRY CONSULTS CONT VANC FOR NOW GIVEN STAPH ISOLATE FOLLOW CX WOULD KEEP CURRENT INSULIN REGIMEN Vitals Vitals Vital Signs Date Time Temp Pulse Resp B/P (MAP) Pulse Ox O2 Delivery O2 Flow Rate FiO2 02/10/17 09:51 73 140/58 02/10/17 07:00 98.2 18 99 Room Air 98.2 Physical Exam General: Alert, Oriented X3, Cooperative Heart: Regular rate, Normal S1, Normal S2 Lungs: Clear Abdomen: Normal bowel sounds, Soft Extremities: No clubbing, No cyanosis Skin: Other (draining dorsal wound, medial side, creamy draiange, non foul smlelling, swelling RT dorsum foot, some pain on exam, round wound) Labs LABS Laboratory Tests Test 02/09/17 11:58 02/09/17 14:15 02/09/17 17:18 02/09/17 23:13 Glucose (Fingerstick) 228 mg/dL (70-99) 170 mg/dL (70-99) 156 mg/dL (70-99) Vancomycin Level Trough 18.6 mcg/mL (10.0-20.0) Vancomycin Last Dose Date 02/08/17 Vancomycin Last Dose Time 1500 Test 02/10/17 07:35 Glucose (Fingerstick) 137 mg/dL (70-99) Review of Systems Review of Systems feeling improved foot pain no n.v.d Assessment and Plan Assessmemt and Plan Problems Medical Problems: (1) Renal failure Status: Acute Problems: Comment Review of Relevant I have reviewed the following items gerson (where applicable) has been applied. Labs Laboratory Tests Test 02/08/17 11:22 02/08/17 11:46 02/08/17 16:22 02/09/17 03:25 Glucose (Fingerstick) 65 mg/dL (70-99) 68 mg/dL (70-99) 172 mg/dL (70-99) White Blood Count 8.7 x10^3/uL (4.0-11.0) Red Blood Count 2.87 x10^6/uL (3.50-5.40) Hemoglobin 8.4 g/dL (12.0-15.5) Hematocrit 25.8 % (36.0-47.0) Mean Corpuscular Volume 90 fL (79-100) Mean Corpuscular Hemoglobin 29 pg (25-35) Mean Corpuscular Hemoglobin Concent 33 g/dL (31-37) Red Cell Distribution Width 14.1 % (11.5-14.5) Platelet Count 372 x10^3/uL (140-400) Neutrophils (%) (Auto) 76 % (31-73) Lymphocytes (%) (Auto) 15 % (24-48) Monocytes (%) (Auto) 8 % (0-9) Eosinophils (%) (Auto) 1 % (0-3) Basophils (%) (Auto) 0 % (0-3) Neutrophils # (Auto) 6.6 x10^3uL (1.8-7.7) Lymphocytes # (Auto) 1.3 x10^3/uL (1.0-4.8) Monocytes # (Auto) 0.7 x10^3/uL (0.0-1.1) Eosinophils # (Auto) 0.1 x10^3/uL (0.0-0.7) Basophils # (Auto) 0.0 x10^3/uL (0.0-0.2) Erythrocyte Sedimentation Rate > 140 (0-25) Sodium Level 138 mmol/L (136-145) Potassium Level 4.4 mmol/L (3.5-5.1) Chloride Level 105 mmol/L (98-107) Carbon Dioxide Level 26 mmol/L (21-32) Anion Gap 7 (6-14) Blood Urea Nitrogen 51 mg/dL (7-20) Creatinine 2.6 mg/dL (0.6-1.0) Estimated GFR (Cockcroft-Gault) 18.5 Glucose Level 147 mg/dL (70-99) Calcium Level 8.5 mg/dL (8.5-10.1) Test 02/09/17 07:14 02/09/17 11:58 02/09/17 14:15 02/09/17 17:18 Glucose (Fingerstick) 139 mg/dL (70-99) 228 mg/dL (70-99) 170 mg/dL (70-99) Vancomycin Level Trough 18.6 mcg/mL (10.0-20.0) Vancomycin Last Dose Date 02/08/17 Vancomycin Last Dose Time 1500 Test 02/09/17 23:13 02/10/17 07:35 Glucose (Fingerstick) 156 mg/dL (70-99) 137 mg/dL (70-99) Laboratory Tests Test 02/09/17 11:58 02/09/17 14:15 02/09/17 17:18 02/09/17 23:13 Glucose (Fingerstick) 228 mg/dL (70-99) 170 mg/dL (70-99) 156 mg/dL (70-99) Vancomycin Level Trough 18.6 mcg/mL (10.0-20.0) Vancomycin Last Dose Date 02/08/17 Vancomycin Last Dose Time 1500 Test 02/10/17 07:35 Glucose (Fingerstick) 137 mg/dL (70-99) Microbiology 02/07/17 Blood Culture - Preliminary, Resulted NO GROWTH AFTER 2 DAYS 02/07/17 Gram Stain - Final, Complete Medications Current Medications Sodium Chloride 1,000 ml @ 2,454 mls/hr Q25M IV Last administered on 21:27; Start 02/07/17 at 12:30; Stop 02/07/17 at 13:30; Status DC Vancomycin HCl (Vanco Per Pharmacy) 1 each PRN DAILY PRN MC SEE COMMENTS Last administered on 02/09/17 15:08; Start 02/07/17 at 12:30 Levofloxacin/ Dextrose (Levaquin Per Pharmacy) 1 each PRN DAILY PRN MC SEE COMMENTS; Start 02/07/17 at 12:30 Vancomycin HCl 1.5 gm/Dextrose/ Sodium Chloride 500 ml @ 250 mls/hr 1X ONCE IV Last administered on 02/07/17 13:26; Start 02/07/17 at 12:45; Stop 02/07 at 14:44; Status DC Levofloxacin/ Dextrose 150 ml @ 100 mls/hr 1X ONCE IV Last administered on 13:35; Start 02/07/17 at 12:45; Stop 02/07/17 at 14:14; Status DC Ondansetron HCl (Zofran) 4 mg PRN Q8HRS PRN IV NAUSEA/VOMITING; Start at 13:15; Stop 02/08/17 at 13:14; Status DC Fentanyl Citrate (Fentanyl 2ml Vial) 50 mcg PRN Q2HR PRN IV PAIN; Start at 13:15; Stop 02/08/17 at 13:14; Status DC Acetaminophen (Tylenol) 650 mg PRN Q4HRS PRN PO FEVER Last administered on 19:25; Start 02/07/17 at 13:15; Stop 02/08/17 at 13:14; Status DC Levofloxacin/ Dextrose 150 ml @ 100 mls/hr Q48H IV Last administered on 12:10; Start 02/09/17 at 13:00 Lactobacillus Rhamnosus (Culturelle) 1 cap BID PO Last administered on 21:09; Start 02/07/17 at 21:00 Insulin Aspart (NovoLOG) 0-7 UNITS TIDWMEALS SQ Last administered on 17:36; Start 02/07/17 at 18:00 Dextrose (Dextrose 50%-Water Syringe) 12.5 gm PRN Q15MIN PRN IV SEE COMMENTS; Start 02/07/17 at 18:00 Ascorbic Acid (Vitamin C) 500 mg DAILY PO Last administered on 02/10/17 09:49 ; Start 02/08/17 at 09:00 Vitamin D (Vitamin D3) 1,000 unit BID PO Last administered on 02/10/17 09:49 ; Start 02/07/17 at 21:00 Clonidine HCl (Catapres) 0.2 mg TID PO Last administered on 02/10/17 09:51; Start 02/07/17 at 21:00 Darbepoetin Yuriy (Aranesp) 60 mcg Q2WKS@2100 SQ ; Start 02/21/17 at 21:00 EZETIMIBE (Zetia) 10 mg DAILY PO Last administered on 02/10/17 09:51; Start 02/08/17 at 09:00 Fluticasone Propionate (Flonase) 2 spray HS NS Last administered on 02/09/17 21:10; Start 02/07/17 at 21:00 Insulin Aspart (NovoLOG) 20 units QIDACHS SQ Last administered on 02/08/17 09 :19; Start 02/07/17 at 21:00; Stop 02/08/17 at 14:49; Status DC Insulin Detemir (Levemir) 42 units HS SQ Last administered on 02/09/17 21:21 ; Start 02/07/17 at 21:00 Atorvastatin Calcium (Lipitor) 80 mg DAILY PO Last administered on 02/10/17 09:49; Start 02/08/17 at 09:00 Carvedilol (Coreg) 25 mg BIDWMEALS PO Last administered on 02/10/17 09:50; Start 02/08/17 at 08:00 Non-Formulary Medication 500 mg DAILY PO ; Start 02/08/17 at 09:00; Status UNV Fenofibrate (Lofibra) 134 mg DAILY PO Last administered on 02/10/17 09:49; Start 02/08/17 at 09:00 Ferrous Sulfate (Feosol) 325 mg BIDWMEALS PO Last administered on 02/10/17 09 :49; Start 02/08/17 at 08:00 Glipizide (Glucotrol) 10 mg BIDBFRMEAL PO Last administered on 02/10/17 09:51 ; Start 02/08/17 at 07:30 Non-Formulary Medication 1.8 mg DAILY SQ ; Start 02/08/17 at 09:00; Stop 02/09 at 15:57; Status DC Lisinopril (Prinivil) 20 mg DAILY PO Last administered on 02/10/17 09:50; Start 02/08/17 at 09:00 Multivitamins (Thera M Plus) 1 tab DAILY PO Last administered on 02/10/17 09: 50; Start 02/08/17 at 09:00 Famotidine (Pepcid) 20 mg PRN BID PRN PO DYSPEPSIA; Start 02/07/17 at 21:00 Hydrochlorothiazide (Microzide) 12.5 mg DAILY PO Last administered on 09:50; Start 02/08/17 at 09:00 Ondansetron HCl (Zofran) 4 mg PRN Q6HRS PRN IV NAUSEA/VOMITING; Start at 13:00 Vancomycin HCl 1.25 gm/Dextrose 250 ml @ 167 mls/hr Q24H IV Last administered on 02/09/17 15:19; Start 02/08/17 at 15:00 Vancomycin HCl 1 each 1X ONCE MC ; Start 02/09/17 at 14:30; Stop 02/09/17 at 14:31; Status DC Insulin Aspart (NovoLOG) 10 units QIDACHS SQ Last administered on 02/10/17 09 :57; Start 02/08/17 at 16:30 Furosemide (Lasix) 40 mg DAILY PO Last administered on 02/10/17 09:49; Start 02/08/17 at 16:30 Oxycodone/ Acetaminophen (Percocet 5/325) 1 tab PRN Q6HRS PRN PO SEVERE PAIN Last administered on 02/09/17 21:10; Start 02/08/17 at 22:30 Active Scripts Active Reported Aranesp Syringe (Darbepoetin Yuriy In Polysorbat) 60 Mcg/0.3 Ml Disp.syrin 60 Mcg SQ Q2WKS Novolog Flexpen (Insulin Aspart) 100 Unit/1 Ml Insuln.pen 20 Unit SQ QIDACHS Levemir Flextouch (Insulin Detemir) 100 Unit/1 Ml Insuln.pen 42 Units SQ HS Atorvastatin Calcium 80 Mg Tablet 80 Mg PO DAILY Ranitidine Hcl 150 Mg Capsule 150 Mg PO PRN BID PRN Ipratropium [place] 15 Ml [place] 15 Ml NS PRN PRN Fenofibrate 160 Mg Tablet 1 Tab PO DAILY Cranberry (Cranberry Extract) 500 Mg Capsule 500 Mg PO DAILY Victoza 3-Mal (Liraglutide) 0.6 Mg/0.1 Ml Pen.injctr 1.8 Mg SQ DAILY Ascorbic Acid 500 Mg Tablet 500 Mg PO DAILY Iron (Ferrous Sulfate) 325 Mg Capsule.er 325 Mg PO BID Vitamin D3 (Cholecalciferol (Vitamin D3)) 1,000 Unit Tablet 1 Tab PO BID Lisinopril-Hctz 20-12.5 Mg Tab (Lisinopril/Hydrochlorothiazide) 1 Each Tablet 1 Tab PO BID Zetia (Ezetimibe) 10 Mg Tablet 1 Tab PO DAILY Clonidine Hcl 0.2 Mg Tablet 1 Tab PO TID Glipizide 10 Mg Tablet 1 Tab PO BID Coreg Cr (Carvedilol Phosphate) 40 Mg Cpmp.24hr 2 Cap PO DAILY Multi-Day Vitamins (Multivitamin) 1 Each Tablet 1 Tab PO DAILY Fluticasone Propionate Nasal [place] (Fluticasone Propionate) 16 Gm [place].susp 2 [place] NS HS Vitals/I & O Vital Sign - Last 24 Hours 02/09/17 02/09/17 02/09/17 02/09/17 15:00 15:14 17:29 19:00 Temp 97.8 98.1 97.8 98.1 Pulse 78 78 74 Resp 16 18 B/P (MAP) 113/27 (55) 113/30 113/30 120/52 (74) Pulse Ox 98 98 O2 Delivery Room Air Room Air 02/09/17 02/09/17 02/09/17 02/09/17 20:00 21:10 21:10 22:10 Pulse 74 Resp 18 17 B/P (MAP) 120/52 Pulse Ox 98 98 O2 Delivery Room Air Room Air Room Air 02/09/17 02/10/17 02/10/17 02/10/17 23:02 03:52 07:00 09:50 Temp 98.3 98.0 98.2 98.3 98.0 98.2 Pulse 81 73 73 73 Resp 18 17 18 B/P (MAP) 139/50 (79) 118/51 (73) 140/58 (85) 140/58 Pulse Ox 97 98 99 O2 Delivery Room Air Room Air Room Air 02/10/17 02/10/17 09:50 09:51 Pulse 73 73 B/P (MAP) 140/58 140/58 Intake and Output 02/09/17 02/09/17 02/10/17 15:00 23:00 07:00 Intake Total 660 ml 600 ml Output Total 800 ml 850 ml Balance -140 ml -250 ml CINDY WHEAT MD Feb 10, 2017 10:57
[2017-02-10 11:00] VITALS: BP 123/49
--- NOTE | 2017-02-10 11:55 | PDOC ---
Renal-Progress Notes Subjective Notes Notes NONE History of Present Illness Hx of present illness STABLE Vitals Vitals Vital Signs Date Time Temp Pulse Resp B/P (MAP) Pulse Ox O2 Delivery O2 Flow Rate FiO2 02/10/17 11:00 98.2 69 20 123/49 (73) 97 Room Air 98.2 Weight Weight [ ] I.O. Intake and Output Intake and Output 02/10/17 07:00 Intake Total 1260 ml Output Total 1650 ml Balance -390 ml Intake Oral 1260 ml Output Urine Total 1650 ml Labs Labs Laboratory Tests Test 02/09/17 11:58 02/09/17 14:15 02/09/17 17:18 02/09/17 23:13 Glucose (Fingerstick) 228 mg/dL (70-99) 170 mg/dL (70-99) 156 mg/dL (70-99) Vancomycin Level Trough 18.6 mcg/mL (10.0-20.0) Vancomycin Last Dose Date 02/08/17 Vancomycin Last Dose Time 1500 Test 02/10/17 07:35 02/10/17 11:41 Glucose (Fingerstick) 137 mg/dL (70-99) 150 mg/dL (70-99) Micro Micro Microbiology 02/07/17 Blood Culture - Preliminary, Resulted NO GROWTH AFTER 2 DAYS 02/07/17 Gram Stain - Final, Complete Review of Systems Constitutional: yes: alert, oriented Ears/Nose/Throat: Yes: no symptom reported Eyes: Yes: no symptom reported Pulmonary: Yes no symptom reported Gastrointestional: Yes: no symptom reported Genitourinary: Yes: no symptom reported Skin: Yes no symptom reported Psychiatric/Neurological: Yes: no symptom reported Endocrine: Yes: no symptom reported Physical Exam General Appearance: no apparent distress Skin: warm Respiratory: bilateral CTA Heart: S1S2 Abdomen: soft, bowel sounds present Genitourinary: bladder flat Extremities: pulses present Neurology: alert, oriented Assessment Assessment IMP CKD STATGE 3-CR AT BASELINE NOW OF ABOUT 2.5 ON AVG DM II HTN R FOOT WOUND PLAN ANTIBIOTICS LABS IN AM JOSE ESTRADA MD Feb 10, 2017 11:54
[2017-02-10] MEDS: VANCOMYCIN PER PHARMACY MC PRN ×2 (13:29→15:30)
[2017-02-10] MEDS: VANCOMYCIN 1.25 GM in IV DEXTROSE 5% 250 ML IV SCH (14:00)
[2017-02-10 15:00] VITALS: BP 110/49
[2017-02-10 19:52] VITALS: BP 118/41
[2017-02-10] MEDS: FLUTICASONE 50MCG/NASAL SPRAY 16GM BOTTLE. NS SCH (21:06)
[2017-02-10] MEDS: INSULIN DETEMIR 300 UNITS/3 ML INSULN.PEN. SQ SCH (21:12)
[2017-02-10] MEDS: oxyCODONE/APAP 5/325 1 TAB TABLET PO PRN (21:34)
[2017-02-10 23:45] VITALS: BP 103/47
[2017-02-11 03:38] VITALS: BP 119/46
[2017-02-11 04:45] LABS: BASO % 0 % (0-3); EOS % 1 % (0-3); HEMATOCRIT 25.8 % (36.0-47.0); HEMOGLOBIN 8.5 g/dL (12.0-15.5); LYMPH # 1.2 x10^3/uL (1.0-4.8); LYMPH % 17 % (24-48); MEAN CORPUSCULAR HEMOGLOBIN 30 pg (25-35); MEAN CORPUSCULAR HGB CONC 33 g/dL (31-37); MEAN CORPUSCULAR VOLUME 90 fL (79-100); MONO % 7 % (0-9); NEUT % 75 % (31-73); PLATELET COUNT 361 x10^3/uL (140-400); RED BLOOD COUNT 2.88 x10^6/uL (3.50-5.40); RED CELL DISTRIBUTION WIDTH 13.9 % (11.5-14.5); WHITE BLOOD COUNT 6.8 x10^3/uL (4.0-11.0)
[2017-02-11 05:03] LABS: ALBUMIN 2.2 g/dL (3.4-5.0); ALBUMIN/GLOBULIN RATIO 0.4 (1.0-1.7); CALCIUM 8.9 mg/dL (8.5-10.1); CREATININE 2.9 mg/dL (0.6-1.0); GFR 16.3; POTASSIUM 4.2 mmol/L (3.5-5.1); TOTAL BILIRUBIN 0.4 mg/dL (0.2-1.0); TOTAL PROTEIN 7.7 g/dL (6.4-8.2)
[2017-02-11 06:45] VITALS: BP 141/63
[2017-02-11] MEDS: INSULIN ASPART 300 UNITS/3 ML INSULN.PEN SQ SCH ×7 (07:30→21:00)
[2017-02-11] MEDS: FERROUS SULFATE 325 MG TABLET. PO SCH ×2 (08:25→18:10)
[2017-02-11] MEDS: EZETIMIBE 10 MG TABLET. PO SCH (08:26)
[2017-02-11] MEDS: hydroCHLOROthiazide 12.5 MG CAPSULE PO SCH (08:26)
[2017-02-11] MEDS: cloNIDine HCL 0.2 MG TABLET PO SCH ×3 (08:26→21:00)
[2017-02-11] MEDS: LISINOPRIL 20 MG TABLET PO SCH (08:26)
[2017-02-11] MEDS: glipiZIDE 5 MG TABLET PO SCH ×2 (08:27→18:09)
[2017-02-11] MEDS: FUROSEMIDE 40 MG TABLET. PO SCH (08:27)
[2017-02-11] MEDS: ATORVASTATIN CALCIUM 40 MG TABLET. PO SCH (08:27)
[2017-02-11] MEDS: LACTOBACILLUS RHAMNOSUS GG 1 CAPSULE. PO SCH ×2 (08:27→22:10)
[2017-02-11] MEDS: FENOFIBRATE,MICRONIZED 134 MG CAPSULE PO SCH (08:28)
[2017-02-11] MEDS: ASCORBIC ACID 500 MG TABLET PO SCH (08:28)
[2017-02-11] MEDS: CARVEDILOL 12.5 MG TABLET. PO SCH ×2 (08:28→18:09)
[2017-02-11] MEDS: CHOLECALCIFEROL (VITAMIN D3) 1,000 UNIT TABLET PO SCH ×2 (08:28→22:10)
--- NOTE | 2017-02-11 08:57 | RAD ---
MRI right foot without contrast dated 02/10/2017. No comparison available. Clinical indication: Medial right foot pain. Foot ulcer. Possible osteomyelitis. TECHNIQUE: Routine multiplanar sequence MR imaging right foot performed. No contrast administered. FINDINGS: There is a focal area of skin ulceration at the medial plantar mid foot underlying the tarsometatarsal joints. Edema within the underlying subcutaneous tissues and deep plantar foot musculature. Edema and signal abnormality extends deep to the plantar aponeurosis with focal edema within the abductor hallucis muscle and ill-definition of the abductor hallucis tendon. Edema extends to the cortex of the medial cuneiform bone at its plantar aspect and there is mild edema within the marrow of the medial cuneiform. Slight surface irregularity of the cortex with no gross evidence of bone destruction or T1 signal loss. The flexor hallucis brevis tendon is also ill-defined. Diffuse edema throughout the dorsal and plantar subcutaneous tissues. No wall formed fluid collection to suggest abscess. Edema and fluid extends along the extensor tendon sheaths. There is moderate hypertrophic change of the joints of the midfoot. Areas of full-thickness cartilage loss and subchondral cystic change of the Lisfranc joints. No additional areas of bone marrow edema IMPRESSION: 1. Skin ulcer at the plantar medial midfoot which extends deep to the level of the medial cuneiform bone. Slight cortical irregularity and bone marrow edema without clear evidence of bone destruction or T1 signal loss. This likely represents reactive edema, although very early osteomyelitis cannot be excluded. 2. Skin ulcer appears to reach the plantar aponeurosis medially. There is also involvement of the abductor hallucis and flexor hallucis brevis muscles/tendon. 3. Diffuse edema throughout the subcutaneous tissues and plantar foot musculature, nonspecific. This could represent generalized cellulitis/myositis. Diabetic neurovascular edema is also possible. 4. Degenerative changes as described above. Electronically signed by: Eladio Whitman MD (02/11/2017 8:53 AM) [id number]
--- NOTE | 2017-02-11 10:31 | PDOC ---
PROGRESS NOTES Chief Complaint Chief Complaint 1. DM wound, draining RT medial side, suspect osteo right foot due to marked ESR 2. fever and tachycardia on admit, sepsis 3. DM 2 with hypoglycemia - last Hgb a1c 5.7 4,. CKD 4 and , anemia of CKD stable 5,. Obesity BMI 31 6. Hypoglycemia, resolved 7. PCN adverse rxn History of Present Illness History of Present Illness MRI showed edema, with bone inflammation, charcot foot from chronic foot deformity, inflammation could be expected from that ID recommended PICC will need long term care pharmacist abx Hgba 1c was 5.7 recently Draining foot lesion drying up WBC 14 on admit ESR > 140, will eval with MRI, ID consult BC prelim neg PCN allergy Wound GS: Vitals Vitals Vital Signs Date Time Temp Pulse Resp B/P (MAP) Pulse Ox O2 Delivery O2 Flow Rate FiO2 02/11/17 08:28 71 119/46 02/11/17 08:00 Room Air 02/11/17 06:45 98.1 18 97 98.1 Physical Exam General: Alert, Oriented X3, Cooperative Heart: Regular rate, Normal S1, Normal S2 Lungs: Clear Abdomen: Normal bowel sounds, Soft Extremities: No clubbing, No cyanosis Skin: Other (draining dorsal wound, medial side, creamy draiange, non foul smlelling, swelling RT dorsum foot, some pain on exam, round wound) Labs LABS Laboratory Tests Test 02/10/17 11:41 02/10/17 16:49 02/10/17 20:55 02/11/17 04:10 Glucose (Fingerstick) 150 mg/dL (70-99) 174 mg/dL (70-99) 206 mg/dL (70-99) White Blood Count 6.8 x10^3/uL (4.0-11.0) Red Blood Count 2.88 x10^6/uL (3.50-5.40) Hemoglobin 8.5 g/dL (12.0-15.5) Hematocrit 25.8 % (36.0-47.0) Mean Corpuscular Volume 90 fL (79-100) Mean Corpuscular Hemoglobin 30 pg (25-35) Mean Corpuscular Hemoglobin Concent 33 g/dL (31-37) Red Cell Distribution Width 13.9 % (11.5-14.5) Platelet Count 361 x10^3/uL (140-400) Neutrophils (%) (Auto) 75 % (31-73) Lymphocytes (%) (Auto) 17 % (24-48) Monocytes (%) (Auto) 7 % (0-9) Eosinophils (%) (Auto) 1 % (0-3) Basophils (%) (Auto) 0 % (0-3) Neutrophils # (Auto) 5.1 x10^3uL (1.8-7.7) Lymphocytes # (Auto) 1.2 x10^3/uL (1.0-4.8) Monocytes # (Auto) 0.5 x10^3/uL (0.0-1.1) Eosinophils # (Auto) 0.0 x10^3/uL (0.0-0.7) Basophils # (Auto) 0.0 x10^3/uL (0.0-0.2) Sodium Level 138 mmol/L (136-145) Potassium Level 4.2 mmol/L (3.5-5.1) Chloride Level 103 mmol/L (98-107) Carbon Dioxide Level 26 mmol/L (21-32) Anion Gap 9 (6-14) Blood Urea Nitrogen 67 mg/dL (7-20) Creatinine 2.9 mg/dL (0.6-1.0) Estimated GFR (Cockcroft-Gault) 16.3 BUN/Creatinine Ratio 23 (6-20) Glucose Level 130 mg/dL (70-99) Calcium Level 8.9 mg/dL (8.5-10.1) Total Bilirubin 0.4 mg/dL (0.2-1.0) Aspartate Amino Transf (AST/SGOT) 26 U/L (15-37) Alanine Aminotransferase (ALT/SGPT) 25 U/L (14-59) Alkaline Phosphatase 66 U/L (46-116) Total Protein 7.7 g/dL (6.4-8.2) Albumin 2.2 g/dL (3.4-5.0) Albumin/Globulin Ratio 0.4 (1.0-1.7) Test 02/11/17 07:08 Glucose (Fingerstick) 97 mg/dL (70-99) Review of Systems Review of Systems no n.v.d Assessment and Plan Assessmemt and Plan Problems Medical Problems: (1) Renal failure Status: Acute Problems: Comment Review of Relevant I have reviewed the following items gerson (where applicable) has been applied. Labs Laboratory Tests Test 02/09/17 11:58 02/09/17 14:15 02/09/17 17:18 02/09/17 19:33 Glucose (Fingerstick) 228 mg/dL (70-99) 170 mg/dL (70-99) 149 mg/dL (70-99) Vancomycin Level Trough 18.6 mcg/mL (10.0-20.0) Vancomycin Last Dose Date 02/08/17 Vancomycin Last Dose Time 1500 Test 02/09/17 23:13 02/10/17 07:35 02/10/17 11:41 02/10/17 16:49 Glucose (Fingerstick) 156 mg/dL (70-99) 137 mg/dL (70-99) 150 mg/dL (70-99) 174 mg/dL (70-99) Test 02/10/17 20:55 02/11/17 04:10 02/11/17 07:08 Glucose (Fingerstick) 206 mg/dL (70-99) 97 mg/dL (70-99) White Blood Count 6.8 x10^3/uL (4.0-11.0) Red Blood Count 2.88 x10^6/uL (3.50-5.40) Hemoglobin 8.5 g/dL (12.0-15.5) Hematocrit 25.8 % (36.0-47.0) Mean Corpuscular Volume 90 fL (79-100) Mean Corpuscular Hemoglobin 30 pg (25-35) Mean Corpuscular Hemoglobin Concent 33 g/dL (31-37) Red Cell Distribution Width 13.9 % (11.5-14.5) Platelet Count 361 x10^3/uL (140-400) Neutrophils (%) (Auto) 75 % (31-73) Lymphocytes (%) (Auto) 17 % (24-48) Monocytes (%) (Auto) 7 % (0-9) Eosinophils (%) (Auto) 1 % (0-3) Basophils (%) (Auto) 0 % (0-3) Neutrophils # (Auto) 5.1 x10^3uL (1.8-7.7) Lymphocytes # (Auto) 1.2 x10^3/uL (1.0-4.8) Monocytes # (Auto) 0.5 x10^3/uL (0.0-1.1) Eosinophils # (Auto) 0.0 x10^3/uL (0.0-0.7) Basophils # (Auto) 0.0 x10^3/uL (0.0-0.2) Sodium Level 138 mmol/L (136-145) Potassium Level 4.2 mmol/L (3.5-5.1) Chloride Level 103 mmol/L (98-107) Carbon Dioxide Level 26 mmol/L (21-32) Anion Gap 9 (6-14) Blood Urea Nitrogen 67 mg/dL (7-20) Creatinine 2.9 mg/dL (0.6-1.0) Estimated GFR (Cockcroft-Gault) 16.3 BUN/Creatinine Ratio 23 (6-20) Glucose Level 130 mg/dL (70-99) Calcium Level 8.9 mg/dL (8.5-10.1) Total Bilirubin 0.4 mg/dL (0.2-1.0) Aspartate Amino Transf (AST/SGOT) 26 U/L (15-37) Alanine Aminotransferase (ALT/SGPT) 25 U/L (14-59) Alkaline Phosphatase 66 U/L (46-116) Total Protein 7.7 g/dL (6.4-8.2) Albumin 2.2 g/dL (3.4-5.0) Albumin/Globulin Ratio 0.4 (1.0-1.7) Laboratory Tests Test 02/10/17 11:41 02/10/17 16:49 02/10/17 20:55 02/11/17 04:10 Glucose (Fingerstick) 150 mg/dL (70-99) 174 mg/dL (70-99) 206 mg/dL (70-99) White Blood Count 6.8 x10^3/uL (4.0-11.0) Red Blood Count 2.88 x10^6/uL (3.50-5.40) Hemoglobin 8.5 g/dL (12.0-15.5) Hematocrit 25.8 % (36.0-47.0) Mean Corpuscular Volume 90 fL (79-100) Mean Corpuscular Hemoglobin 30 pg (25-35) Mean Corpuscular Hemoglobin Concent 33 g/dL (31-37) Red Cell Distribution Width 13.9 % (11.5-14.5) Platelet Count 361 x10^3/uL (140-400) Neutrophils (%) (Auto) 75 % (31-73) Lymphocytes (%) (Auto) 17 % (24-48) Monocytes (%) (Auto) 7 % (0-9) Eosinophils (%) (Auto) 1 % (0-3) Basophils (%) (Auto) 0 % (0-3) Neutrophils # (Auto) 5.1 x10^3uL (1.8-7.7) Lymphocytes # (Auto) 1.2 x10^3/uL (1.0-4.8) Monocytes # (Auto) 0.5 x10^3/uL (0.0-1.1) Eosinophils # (Auto) 0.0 x10^3/uL (0.0-0.7) Basophils # (Auto) 0.0 x10^3/uL (0.0-0.2) Sodium Level 138 mmol/L (136-145) Potassium Level 4.2 mmol/L (3.5-5.1) Chloride Level 103 mmol/L (98-107) Carbon Dioxide Level 26 mmol/L (21-32) Anion Gap 9 (6-14) Blood Urea Nitrogen 67 mg/dL (7-20) Creatinine 2.9 mg/dL (0.6-1.0) Estimated GFR (Cockcroft-Gault) 16.3 BUN/Creatinine Ratio 23 (6-20) Glucose Level 130 mg/dL (70-99) Calcium Level 8.9 mg/dL (8.5-10.1) Total Bilirubin 0.4 mg/dL (0.2-1.0) Aspartate Amino Transf (AST/SGOT) 26 U/L (15-37) Alanine Aminotransferase (ALT/SGPT) 25 U/L (14-59) Alkaline Phosphatase 66 U/L (46-116) Total Protein 7.7 g/dL (6.4-8.2) Albumin 2.2 g/dL (3.4-5.0) Albumin/Globulin Ratio 0.4 (1.0-1.7) Test 02/11/17 07:08 Glucose (Fingerstick) 97 mg/dL (70-99) Microbiology 11/24/17 Blood Culture - Preliminary, Resulted NO GROWTH AFTER 3 DAYS 02/07/17 Gram Stain - Final, Complete Medications Current Medications Sodium Chloride 1,000 ml @ 2,454 mls/hr Q25M IV Last administered on 21:27; Start 02/07/17 at 12:30; Stop 02/07/17 at 13:30; Status DC Vancomycin HCl (Vanco Per Pharmacy) 1 each PRN DAILY PRN MC SEE COMMENTS Last administered on 02/10/17 15:30; Start 02/07/17 at 12:30 Levofloxacin/ Dextrose (Levaquin Per Pharmacy) 1 each PRN DAILY PRN MC SEE COMMENTS; Start 02/07/17 at 12:30; Stop 02/10/17 at 15:27; Status DC Vancomycin HCl 1.5 gm/Dextrose/ Sodium Chloride 500 ml @ 250 mls/hr 1X ONCE IV Last administered on 02/07/17 13:26; Start 02/07/17 at 12:45; Stop 02/07 at 14:44; Status DC Levofloxacin/ Dextrose 150 ml @ 100 mls/hr 1X ONCE IV Last administered on 13:35; Start 02/07/17 at 12:45; Stop 02/07/17 at 14:14; Status DC Ondansetron HCl (Zofran) 4 mg PRN Q8HRS PRN IV NAUSEA/VOMITING; Start at 13:15; Stop 02/08/17 at 13:14; Status DC Fentanyl Citrate (Fentanyl 2ml Vial) 50 mcg PRN Q2HR PRN IV PAIN; Start at 13:15; Stop 02/08/17 at 13:14; Status DC Acetaminophen (Tylenol) 650 mg PRN Q4HRS PRN PO FEVER Last administered on 19:25; Start 02/07/17 at 13:15; Stop 02/08/17 at 13:14; Status DC Levofloxacin/ Dextrose 150 ml @ 100 mls/hr Q48H IV Last administered on 12:10; Start 02/09/17 at 13:00 Lactobacillus Rhamnosus (Culturelle) 1 cap BID PO Last administered on 08:27; Start 02/07/17 at 21:00 Insulin Aspart (NovoLOG) 0-7 UNITS TIDWMEALS SQ Last administered on 18:38; Start 02/07/17 at 18:00 Dextrose (Dextrose 50%-Water Syringe) 12.5 gm PRN Q15MIN PRN IV SEE COMMENTS; Start 02/07/17 at 18:00 Ascorbic Acid (Vitamin C) 500 mg DAILY PO Last administered on 02/11/17 08:28 ; Start 02/08/17 at 09:00 Vitamin D (Vitamin D3) 1,000 unit BID PO Last administered on 02/11/17 08:28 ; Start 02/07/17 at 21:00 Clonidine HCl (Catapres) 0.2 mg TID PO Last administered on 02/11/17 08:26; Start 02/07/17 at 21:00 Darbepoetin Yuriy (Aranesp) 60 mcg Q2WKS@2100 SQ ; Start 02/21/17 at 21:00 EZETIMIBE (Zetia) 10 mg DAILY PO Last administered on 02/11/17 08:26; Start 02/08/17 at 09:00 Fluticasone Propionate (Flonase) 2 spray HS NS Last administered on 02/10/17 21:06; Start 02/07/17 at 21:00 Insulin Aspart (NovoLOG) 20 units QIDACHS SQ Last administered on 02/08/17 09 :19; Start 02/07/17 at 21:00; Stop 02/08/17 at 14:49; Status DC Insulin Detemir (Levemir) 42 units HS SQ Last administered on 02/10/17 21:12 ; Start 02/07/17 at 21:00 Atorvastatin Calcium (Lipitor) 80 mg DAILY PO Last administered on 02/11/17 08:27; Start 02/08/17 at 09:00 Carvedilol (Coreg) 25 mg BIDWMEALS PO Last administered on 02/11/17 08:28; Start 02/08/17 at 08:00 Non-Formulary Medication 500 mg DAILY PO ; Start 02/08/17 at 09:00; Status UNV Fenofibrate (Lofibra) 134 mg DAILY PO Last administered on 02/11/17 08:28; Start 02/08/17 at 09:00 Ferrous Sulfate (Feosol) 325 mg BIDWMEALS PO Last administered on 02/11/17 08 :25; Start 02/08/17 at 08:00 Glipizide (Glucotrol) 10 mg BIDBFRMEAL PO Last administered on 02/11/17 08:27 ; Start 02/08/17 at 07:30 Non-Formulary Medication 1.8 mg DAILY SQ ; Start 02/08/17 at 09:00; Stop 02/09 at 15:57; Status DC Lisinopril (Prinivil) 20 mg DAILY PO Last administered on 02/11/17 08:26; Start 02/08/17 at 09:00 Multivitamins (Thera M Plus) 1 tab DAILY PO Last administered on 02/10/17 21: 06; Start 02/08/17 at 09:00 Famotidine (Pepcid) 20 mg PRN BID PRN PO DYSPEPSIA; Start 02/07/17 at 21:00 Hydrochlorothiazide (Microzide) 12.5 mg DAILY PO Last administered on 08:26; Start 02/08/17 at 09:00 Ondansetron HCl (Zofran) 4 mg PRN Q6HRS PRN IV NAUSEA/VOMITING; Start at 13:00 Vancomycin HCl 1.25 gm/Dextrose 250 ml @ 167 mls/hr Q24H IV Last administered on 02/10/17 14:00; Start 02/08/17 at 15:00 Vancomycin HCl 1 each 1X ONCE MC ; Start 02/09/17 at 14:30; Stop 02/09/17 at 14:31; Status DC Insulin Aspart (NovoLOG) 10 units QIDACHS SQ Last administered on 02/10/17 18 :37; Start 02/08/17 at 16:30 Furosemide (Lasix) 40 mg DAILY PO Last administered on 02/11/17 08:27; Start 02/08/17 at 16:30 Oxycodone/ Acetaminophen (Percocet 5/325) 1 tab PRN Q6HRS PRN PO SEVERE PAIN Last administered on 02/10/17 21:34; Start 02/08/17 at 22:30 Active Scripts Active Reported Aranesp Syringe (Darbepoetin Yuriy In Polysorbat) 60 Mcg/0.3 Ml Disp.syrin 60 Mcg SQ Q2WKS Novolog Flexpen (Insulin Aspart) 100 Unit/1 Ml Insuln.pen 20 Unit SQ QIDACHS Levemir Flextouch (Insulin Detemir) 100 Unit/1 Ml Insuln.pen 42 Units SQ HS Atorvastatin Calcium 80 Mg Tablet 80 Mg PO DAILY Ranitidine Hcl 150 Mg Capsule 150 Mg PO PRN BID PRN Ipratropium [place] 15 Ml Eden 15 Ml NS PRN PRN Fenofibrate 160 Mg Tablet 1 Tab PO DAILY Cranberry (Cranberry Extract) 500 Mg Capsule 500 Mg PO DAILY Victoza 3-Mal (Liraglutide) 0.6 Mg/0.1 Ml Pen.injctr 1.8 Mg SQ DAILY Ascorbic Acid 500 Mg Tablet 500 Mg PO DAILY Iron (Ferrous Sulfate) 325 Mg Capsule.er 325 Mg PO BID Vitamin D3 (Cholecalciferol (Vitamin D3)) 1,000 Unit Tablet 1 Tab PO BID Lisinopril-Hctz 20-12.5 Mg Tab (Lisinopril/Hydrochlorothiazide) 1 Each Tablet 1 Tab PO BID Zetia (Ezetimibe) 10 Mg Tablet 1 Tab PO DAILY Clonidine Hcl 0.2 Mg Tablet 1 Tab PO TID Glipizide 10 Mg Tablet 1 Tab PO BID Coreg Cr (Carvedilol Phosphate) 40 Mg Cpmp.24hr 2 Cap PO DAILY Multi-Day Vitamins (Multivitamin) 1 Each Tablet 1 Tab PO DAILY Fluticasone Propionate Nasal Eden (Fluticasone Propionate) 16 Gm Eden.susp 2 Eden NS HS Vitals/I & O Vital Sign - Last 24 Hours 02/10/17 02/10/17 02/10/17 02/10/17 11:00 13:59 15:00 18:32 Temp 98.2 98.6 98.2 98.6 Pulse 69 69 78 78 Resp 20 18 B/P (MAP) 123/49 (73) 123/49 110/49 (69) 110/49 Pulse Ox 97 98 O2 Delivery Room Air Room Air 02/10/17 02/10/17 02/10/17 02/10/17 19:52 20:00 21:05 21:34 Temp 98.4 98.4 Pulse 79 79 Resp 16 18 B/P (MAP) 118/41 (66) 118/41 Pulse Ox 97 97 O2 Delivery Room Air Room Air Room Air 02/10/17 02/10/17 02/11/17 02/11/17 22:34 23:45 03:38 06:45 Temp 98.5 97.7 98.1 98.5 97.7 98.1 Pulse 67 71 75 Resp 17 16 16 18 B/P (MAP) 103/47 (65) 119/46 (70) 141/63 (89) Pulse Ox 98 98 98 97 O2 Delivery Room Air Room Air Room Air Room Air 02/11/17 02/11/17 02/11/17 02/11/17 08:00 08:26 08:26 08:28 Pulse 71 71 71 B/P (MAP) 119/46 119/46 119/46 O2 Delivery Room Air Intake and Output 02/10/17 02/10/17 02/11/17 15:00 23:00 07:00 Intake Total 600 ml 1000 ml Output Total 400 ml 850 ml 800 ml Balance -400 ml -250 ml 200 ml CINDY WHEAT MD Feb 11, 2017 10:31
--- NOTE | 2017-02-11 10:40 | PDOC ---
Provider Note Provider Note Pt seen and examined MSSA and strep Diabetic foot ulcer,deep tissue infection Charcots foot CKD DM PCN allergy ,rash, d/w about ertapenem. She agrees duration will be atleast 3- 4 weeks depending on clinical response wound management optimal dm control weekly labs cbc,lft,bun,creat f/u in our office in 2 weeks [phone] LUIZ ANDREA MD Feb 11, 2017 10:40
[2017-02-11 10:44] VITALS: BP 97/44
--- NOTE | 2017-02-11 11:31 | PDOC ---
Renal-Progress Notes Subjective Notes Notes NONE History of Present Illness Hx of present illness STABLE Vitals Vitals Vital Signs Date Time Temp Pulse Resp B/P (MAP) Pulse Ox O2 Delivery O2 Flow Rate FiO2 02/11/17 10:44 97.9 65 18 97/44 (61) 98 Room Air 97.9 Weight Weight [ ] I.O. Intake and Output Intake and Output 02/11/17 07:00 Intake Total 1600 ml Output Total 2050 ml Balance -450 ml Intake Oral 1600 ml Output Urine Total 2050 ml Labs Labs Laboratory Tests Test 02/10/17 11:41 02/10/17 16:49 02/10/17 20:55 02/11/17 04:10 Glucose (Fingerstick) 150 mg/dL (70-99) 174 mg/dL (70-99) 206 mg/dL (70-99) White Blood Count 6.8 x10^3/uL (4.0-11.0) Red Blood Count 2.88 x10^6/uL (3.50-5.40) Hemoglobin 8.5 g/dL (12.0-15.5) Hematocrit 25.8 % (36.0-47.0) Mean Corpuscular Volume 90 fL (79-100) Mean Corpuscular Hemoglobin 30 pg (25-35) Mean Corpuscular Hemoglobin Concent 33 g/dL (31-37) Red Cell Distribution Width 13.9 % (11.5-14.5) Platelet Count 361 x10^3/uL (140-400) Neutrophils (%) (Auto) 75 % (31-73) Lymphocytes (%) (Auto) 17 % (24-48) Monocytes (%) (Auto) 7 % (0-9) Eosinophils (%) (Auto) 1 % (0-3) Basophils (%) (Auto) 0 % (0-3) Neutrophils # (Auto) 5.1 x10^3uL (1.8-7.7) Lymphocytes # (Auto) 1.2 x10^3/uL (1.0-4.8) Monocytes # (Auto) 0.5 x10^3/uL (0.0-1.1) Eosinophils # (Auto) 0.0 x10^3/uL (0.0-0.7) Basophils # (Auto) 0.0 x10^3/uL (0.0-0.2) Sodium Level 138 mmol/L (136-145) Potassium Level 4.2 mmol/L (3.5-5.1) Chloride Level 103 mmol/L (98-107) Carbon Dioxide Level 26 mmol/L (21-32) Anion Gap 9 (6-14) Blood Urea Nitrogen 67 mg/dL (7-20) Creatinine 2.9 mg/dL (0.6-1.0) Estimated GFR (Cockcroft-Gault) 16.3 BUN/Creatinine Ratio 23 (6-20) Glucose Level 130 mg/dL (70-99) Calcium Level 8.9 mg/dL (8.5-10.1) Total Bilirubin 0.4 mg/dL (0.2-1.0) Aspartate Amino Transf (AST/SGOT) 26 U/L (15-37) Alanine Aminotransferase (ALT/SGPT) 25 U/L (14-59) Alkaline Phosphatase 66 U/L (46-116) Total Protein 7.7 g/dL (6.4-8.2) Albumin 2.2 g/dL (3.4-5.0) Albumin/Globulin Ratio 0.4 (1.0-1.7) Test 02/11/17 07:08 Glucose (Fingerstick) 97 mg/dL (70-99) Micro Micro Microbiology 02/07/17 Blood Culture - Preliminary, Resulted NO GROWTH AFTER 3 DAYS 02/07/17 Gram Stain - Final, Complete Review of Systems Constitutional: yes: alert, oriented Ears/Nose/Throat: Yes: no symptom reported Eyes: Yes: no symptom reported Pulmonary: Yes no symptom reported Gastrointestional: Yes: no symptom reported Genitourinary: Yes: no symptom reported Skin: Yes no symptom reported Psychiatric/Neurological: Yes: no symptom reported Endocrine: Yes: no symptom reported Physical Exam General Appearance: no apparent distress Skin: warm Respiratory: bilateral CTA Heart: S1S2 Abdomen: soft, bowel sounds present Genitourinary: bladder flat Extremities: pulses present Neurology: alert, oriented Assessment Assessment IMP MILD KOFI-DEHYDRATION CKD STATGE 3-CR AT BASELINE NOW OF ABOUT 2.5 ON AVG DM II HTN R FOOT WOUND PLAN IVF'S HOLD EJ - I AND LASIX ANTIBIOTICS LABS IN AM JOSE ESTRADA MD Feb 11, 2017 11:31
[2017-02-11] MEDS: IV NORMAL SALINE 1000ML BAG 1,000 ML IV SCH (11:45)
[2017-02-11] MEDS: ERTAPENEM 0.5 GM in IV NORMAL SALINE 50ML 50 ML IV SCH (12:00)
[2017-02-11 14:00] VITALS: BP 102/60
[2017-02-11 19:00] VITALS: BP 107/34
[2017-02-11] MEDS ORDERED: DARBEPOETIN ALFA 60 MCG/0.3 ML DISP.SYRIN. SQ SCH (21:00)
[2017-02-11] MEDS: FLUTICASONE 50MCG/NASAL SPRAY 16GM BOTTLE. NS SCH (22:10)
[2017-02-11] MEDS: INSULIN DETEMIR 300 UNITS/3 ML INSULN.PEN. SQ SCH (22:27)
[2017-02-11 23:26] VITALS: BP 111/34
[2017-02-12] MEDS: IV NORMAL SALINE 1000ML BAG 1,000 ML IV SCH ×2 (01:05→10:49)
--- NOTE | 2017-02-12 01:11 | CONS ---
DATE OF CONSULTATION: 02/11/2017 REQUESTING PHYSICIAN: Hospitalist. REASON FOR CONSULTATION: Diabetic foot ulcer. HISTORY OF PRESENT ILLNESS: 66-year-old female with history of diabetes and hypertension, admitted for a nonhealing right diabetic plantar foot ulcer. The patient noticed it several months ago and was gradually getting worse with drainage which started a few days ago with swelling and redness. She tried OTC medication and care, but that did not help. She presented to the [facility] ER on 02/07/2017 and was admitted for further evaluation and care. Podiatry has been consulted for evaluation of I and D. She was started on empiric IV vancomycin and underwent MRI, which revealed: possible om PAST MEDICAL HISTORY: Diabetes, hypertension, CKD and peripheral neuropathy. PAST SURGICAL HISTORY: Appendectomy, cholecystectomy, and tonsillectomy. ALLERGIES: PENICILLIN causing rash and AMLODIPINE. FAMILY HISTORY: Positive for diabetes. SOCIAL HISTORY: Denies smoking, ETOH or illicit drug use. MEDICATIONS: Reviewed, IV antibiotics, IV vancomycin and other medication reviewed in MRAD. REVIEW OF SYSTEMS: Negative except for above. PHYSICAL EXAMINATION: VITAL SIGNS: Temperature 97.9, pulse 65, respiration 18, blood pressure 97/44 and repeat was 119/46 and oxygen saturation 98% on room air. GENERAL: Alert, oriented and cooperative female, in no acute distress. HEENT: Anicteric, normocephalic and atraumatic. Pupils equal and reactive. Extraocular movements intact grossly. No oral lesions. NECK: Supple. No JVD. No lymphadenopathy. LUNGS: Clear bilaterally. No wheezing. HEART: S1 and S2 present. ABDOMEN: Soft. Bowel sounds present. Nontender. Nondistended. No masses felt. EXTREMITIES: No edema. Charcots rt foot,foot shows plantar and medial ulcer large purulent draining lesion. Edema present, erythema and warmth present going up the right lower extremity. Improving slowly per pt Unable to check for dorsalis pedis due to edema LYMPHATICS: No lymphadenopathy palpable. NEUROLOGY: Grossly intact. DERMATOLOGICAL: No generalized rash. MUSCULOSKELETAL: No other joint effusion or erythema noted. LABORATORY DATA: WBC 6.8, hemoglobin 8.5, hematocrit 25.8, platelets 361 and neutrophils 75. Sodium 138, potassium 4.2, chloride 103, bicarbonate 26, BUN 67, creatinine 2.9 and glucose 130. Calcium 8.9, total bilirubin 0.4, AST 26, ALT 25, alkaline phosphatase 66, total protein 7.7, albumin 2.2 and vancomycin trough 18.6. UA negative for WBC and leukocyte esterase. IMAGING DATA: Chest x-ray, impression: No acute cardiopulmonary changes. Foot x-ray, impression: No clear acute osteomyelitis by radiograph. Mid foot neuropathic arthropathy with pes planus. MRI,RT foot impression: 1. Skin ulcer at the plantar medial mid foot, which extends deep to the level of the median cuneiform bone. Slight cortical irregularity and bone marrow edema without clear evidence of bone destruction or T1 signal loss. This likely represents reactive edema, although very early osteomyelitis cannot be excluded. 2. Skin ulcer appears to be the plantar aponeurosis medially. There is also involvement of abductor hallucis and flexor hallucis brevis muscles/tendon. 3. Diffuse edema throughout the subcutaneous tissue and plantar foot musculature, nonspecific. This could represent generalized cellulitis/myositis. Diabetic neurovascular edema is also possible. 4. Degenerative changes as described above. MICROBIOLOGY DATA: Blood culture 02/07/2017, no growth. Wound culture 02/07/2017 shows Staph aureus, dicloxacillin, nafcillin sensitive; amoxicillin, clavulanate and ampicillin and sulbactam sensitive; cefaclor and cefuroxime susceptible and imipenem and meropenem susceptible. Beta hemolytic Streptococcus group A heavy growth. IMPRESSION: 1. Right foot nonhealing diabetic foot wound, suspect osteo with marked elevation of erythrocyte sedimentation rate.C/S + MSSA and Grp B strep 2. Diabetes mellitus with peripheral neuropathy and Charcot's arthropathy. 3. Chronic kidney disease. 4. Acute kidney injury, anemia. 5. PVD 6. Obesity. 7. Penicillin allergy with rash. ASSESSMENT AND PLAN: 1. Right medial chronic nonhealing diabetic foot wound, suspect osteo and deep tissue infection. 2. Awaiting Podiatry for further evaluation of incision and drainage. 3.agree with vascular evaluation 3. Discontinue IV vancomycin 4. PICC line placement . 5. Start ertapenem 0.5 grams IV every day due to chronic kidney disease PCN allergy with rash ,Pt agrees with trial of the above 5. If incision and drainage is done, please send for tissue for routine studies including cultures and susceptibility. 6. Antibiotic alone may not be optimal. This was discussed with the patient at length. Total duration of antibiotic therapy will be at least 2-3 weeks or depending on clinical response. Thank you for consulting Infectious Disease. LUIZ ANDREA MD DR: TENISHA/maria fernanda JOB#: [id number] / [id number] KAJAL
[2017-02-12 03:22] VITALS: BP 121/40
[2017-02-12 06:00] LABS: BASO % 0 % (0-3); EOS % 1 % (0-3); HEMATOCRIT 27.2 % (36.0-47.0); LYMPH # 1.5 x10^3/uL (1.0-4.8); LYMPH % 20 % (24-48); MEAN CORPUSCULAR HEMOGLOBIN 30 pg (25-35); MEAN CORPUSCULAR HGB CONC 33 g/dL (31-37); MEAN CORPUSCULAR VOLUME 90 fL (79-100); MONO % 8 % (0-9); NEUT % 71 % (31-73); PLATELET COUNT 418 x10^3/uL (140-400); RED BLOOD COUNT 3.02 x10^6/uL (3.50-5.40); RED CELL DISTRIBUTION WIDTH 14.5 % (11.5-14.5); WHITE BLOOD COUNT 7.8 x10^3/uL (4.0-11.0)
[2017-02-12 06:41] LABS: ALBUMIN 2.5 g/dL (3.4-5.0); ALBUMIN/GLOBULIN RATIO 0.4 (1.0-1.7); CALCIUM 9.1 mg/dL (8.5-10.1); CREATININE 2.9 mg/dL (0.6-1.0); GFR 16.3; POTASSIUM 4.1 mmol/L (3.5-5.1); TOTAL BILIRUBIN 0.4 mg/dL (0.2-1.0); TOTAL PROTEIN 8.3 g/dL (6.4-8.2)
[2017-02-12 07:00] VITALS: BP 151/55
[2017-02-12] MEDS: INSULIN ASPART 300 UNITS/3 ML INSULN.PEN SQ SCH ×6 (07:30→17:37)
[2017-02-12] MEDS ORDERED: LIDOCAINE 1% / SOD BICARB 8.4% 20 ML VIAL. IJ ONE ×2 (07:52→08:45)
--- NOTE | 2017-02-12 08:23 | PDOC1 ---
IR Pre-Procedure H&P H&P Update No significant change from Dr. Mitchell consult note done 02/11/17. Patient had failed PICC line placement attempts on the floor by PICC team. Will place PICC in IR. AYO DOMINGUEZ MD Feb 12, 2017 08:23
--- NOTE | 2017-02-12 09:18 | RAD ---
Procedure: ultrasound and fluoroscopic guided PICC placement. The procedure risk and complications to include bleeding, infection and arrhythmia, were discussed at length with the patient, and they understood and wished to proceed. All questions were answered. Consent form signed. The right upper extremity was prepped and draped using maximal sterile technique and 1% Xylocaine was used for local anesthesia. Ultrasound-guided access: The arm was scanned by ultrasound and the right basilic vein is patent and compressible. Under ultrasound guidance, a single wall puncture was made into the right basilic vein followed by tract dilation and careful guidewire and sheath placement. An ultrasound image was saved and sent to PACS. The 5-Honduran double lumen PICC line catheter was measured under fluoroscopic guidance and cut to 40 cm. The PICC line was placed with the tip at the superior cavoatrial junction. Line was flushed with saline. Chest x-ray: PICC line is in a satisfactory location. Complication: None Fluoroscopy time 0.4 mins Exposures: Single DAP: 1 Gycm2 Contrast: None Sedation: None The patient tolerated the procedure well and returned to the floor in a stable condition. Conclusion: Successful right arm 5 [place] double lumen 40- cm long basilic PICC placement with ultrasound and fluoroscopic guidance.
[2017-02-12] MEDS: hydroCHLOROthiazide 12.5 MG CAPSULE PO SCH (09:47)
[2017-02-12] MEDS: FENOFIBRATE,MICRONIZED 134 MG CAPSULE PO SCH (09:47)
[2017-02-12] MEDS: CHOLECALCIFEROL (VITAMIN D3) 1,000 UNIT TABLET PO SCH ×2 (09:48→20:51)
[2017-02-12] MEDS: ATORVASTATIN CALCIUM 40 MG TABLET. PO SCH (09:48)
[2017-02-12] MEDS: LACTOBACILLUS RHAMNOSUS GG 1 CAPSULE. PO SCH ×2 (09:49→20:50)
[2017-02-12] MEDS: FERROUS SULFATE 325 MG TABLET. PO SCH ×2 (09:49→17:33)
[2017-02-12] MEDS: MULTIVITAMIN with MINERAL TABLET. PO SCH (09:49)
[2017-02-12] MEDS: cloNIDine HCL 0.2 MG TABLET PO SCH ×3 (09:49→20:52)
[2017-02-12] MEDS: ASCORBIC ACID 500 MG TABLET PO SCH (09:49)
[2017-02-12] MEDS: glipiZIDE 5 MG TABLET PO SCH ×2 (09:49→17:33)
[2017-02-12] MEDS: CARVEDILOL 12.5 MG TABLET. PO SCH ×2 (09:50→17:00)
[2017-02-12] MEDS: EZETIMIBE 10 MG TABLET. PO SCH (10:49)
[2017-02-12] MEDS: ERTAPENEM 0.5 GM in IV NORMAL SALINE 50ML 50 ML IV SCH (10:50)
[2017-02-12 10:53] VITALS: BP 149/58
--- NOTE | 2017-02-12 11:52 | PDOC ---
Provider Note Provider Note (please see full dictation) She has DM with peripheral neuropathy and medial right foot ulcer. She has diminished pulses. Will order arterial US of the right leg and bilateral ELIGIO. She needs complete off loading of the right foot ulcer. Would recommend non- weight bearing. JHON MANCILLA MD Feb 12, 2017 11:52
--- NOTE | 2017-02-12 12:22 | PDOC ---
Renal-Progress Notes Subjective Notes Notes NONE History of Present Illness Hx of present illness NO CHANGE Vitals Vitals Vital Signs Date Time Temp Pulse Resp B/P (MAP) Pulse Ox O2 Delivery O2 Flow Rate FiO2 02/12/17 10:53 97.8 75 16 149/58 (88) 99 Room Air 97.8 Weight Weight [ ] I.O. Intake and Output Intake and Output 02/12/17 06:59 Intake Total 150 ml Output Total 2525 ml Balance -2375 ml Intake Oral 150 ml Output Urine Total 2525 ml Labs Labs Laboratory Tests Test 02/11/17 17:41 02/12/17 04:15 02/12/17 07:16 02/12/17 11:41 Glucose (Fingerstick) 116 mg/dL (70-99) 85 mg/dL (70-99) 226 mg/dL (70-99) White Blood Count 7.8 x10^3/uL (4.0-11.0) Red Blood Count 3.02 x10^6/uL (3.50-5.40) Hemoglobin 9.0 g/dL (12.0-15.5) Hematocrit 27.2 % (36.0-47.0) Mean Corpuscular Volume 90 fL (79-100) Mean Corpuscular Hemoglobin 30 pg (25-35) Mean Corpuscular Hemoglobin Concent 33 g/dL (31-37) Red Cell Distribution Width 14.5 % (11.5-14.5) Platelet Count 418 x10^3/uL (140-400) Neutrophils (%) (Auto) 71 % (31-73) Lymphocytes (%) (Auto) 20 % (24-48) Monocytes (%) (Auto) 8 % (0-9) Eosinophils (%) (Auto) 1 % (0-3) Basophils (%) (Auto) 0 % (0-3) Neutrophils # (Auto) 5.5 x10^3uL (1.8-7.7) Lymphocytes # (Auto) 1.5 x10^3/uL (1.0-4.8) Monocytes # (Auto) 0.6 x10^3/uL (0.0-1.1) Eosinophils # (Auto) 0.1 x10^3/uL (0.0-0.7) Basophils # (Auto) 0.0 x10^3/uL (0.0-0.2) Erythrocyte Sedimentation Rate 143 (0-25) Sodium Level 140 mmol/L (136-145) Potassium Level 4.1 mmol/L (3.5-5.1) Chloride Level 104 mmol/L (98-107) Carbon Dioxide Level 26 mmol/L (21-32) Anion Gap 10 (6-14) Blood Urea Nitrogen 69 mg/dL (7-20) Creatinine 2.9 mg/dL (0.6-1.0) Estimated GFR (Cockcroft-Gault) 16.3 BUN/Creatinine Ratio 24 (6-20) Glucose Level 83 mg/dL (70-99) Calcium Level 9.1 mg/dL (8.5-10.1) Total Bilirubin 0.4 mg/dL (0.2-1.0) Aspartate Amino Transf (AST/SGOT) 30 U/L (15-37) Alanine Aminotransferase (ALT/SGPT) 25 U/L (14-59) Alkaline Phosphatase 60 U/L (46-116) Total Protein 8.3 g/dL (6.4-8.2) Albumin 2.5 g/dL (3.4-5.0) Albumin/Globulin Ratio 0.4 (1.0-1.7) Micro Micro Microbiology 02/07/17 Blood Culture - Preliminary, Resulted NO GROWTH AFTER 4 DAYS 02/07/17 Gram Stain - Final, Complete Review of Systems Constitutional: yes: alert, oriented Ears/Nose/Throat: Yes: no symptom reported Eyes: Yes: no symptom reported Pulmonary: Yes no symptom reported Gastrointestional: Yes: no symptom reported Genitourinary: Yes: no symptom reported Skin: Yes no symptom reported Psychiatric/Neurological: Yes: no symptom reported Endocrine: Yes: no symptom reported Physical Exam General Appearance: no apparent distress Skin: warm Respiratory: bilateral CTA Heart: S1S2 Abdomen: soft, bowel sounds present Genitourinary: bladder flat Extremities: pulses present Neurology: alert, oriented Assessment Assessment IMP MILD [id number]-VL OF 2.9 CKD STATGE 3-CR AT BASELINE NOW OF ABOUT 2.5 ON AVG DM II HTN R FOOT WOUND PLAN IVF'S HOLD EJ - I AND LASIX MAY NEED ARTERIOGRAM D/W ATTENDING AND VASCULAR SURGERY ANTIBIOTICS LABS IN JOSE ESTRADA MD Feb 12, 2017 12:22
--- NOTE | 2017-02-12 12:28 | PDOC ---
Infectious Disease Note ROS ROS GEN: Denies fevers, chills, sweats HEENT: Denies blurred vision, sore throat CV: Denies chest pain RESP: Denies shortness of air, cough GI: Denies n/v/d NEURO: Denies confusion, dizziness MSK: Denies weakness, joint pain/swelling Vital Sign Vital Signs Vital Signs Date Time Temp Pulse Resp B/P (MAP) Pulse Ox O2 Delivery O2 Flow Rate FiO2 02/12/17 10:53 97.8 75 16 149/58 (88) 99 Room Air 97.8 Physical Exam PHYSICAL EXAM GENERAL: NAD, Alert HEENT: PERRL, OC/OP NECK: Supple, no JVD, no LN LUNGS: Clear HEART: S1S2, no gallop, no murmur ABD: Soft, NT, no organomegaly, no rebound EXT: No edema, no cyanosis,RT FOOT charcots foot, dressing intact, dry SCHOOL SPEECH LANGUAGE PATHOLOGIST: Alert, oriented x 3, no focal neurologic deficit SKIN: No rash IV: ok Labs Lab Laboratory Tests Test 02/11/17 17:41 02/12/17 04:15 02/12/17 07:16 02/12/17 11:41 Glucose (Fingerstick) 116 mg/dL (70-99) 85 mg/dL (70-99) 226 mg/dL (70-99) White Blood Count 7.8 x10^3/uL (4.0-11.0) Red Blood Count 3.02 x10^6/uL (3.50-5.40) Hemoglobin 9.0 g/dL (12.0-15.5) Hematocrit 27.2 % (36.0-47.0) Mean Corpuscular Volume 90 fL (79-100) Mean Corpuscular Hemoglobin 30 pg (25-35) Mean Corpuscular Hemoglobin Concent 33 g/dL (31-37) Red Cell Distribution Width 14.5 % (11.5-14.5) Platelet Count 418 x10^3/uL (140-400) Neutrophils (%) (Auto) 71 % (31-73) Lymphocytes (%) (Auto) 20 % (24-48) Monocytes (%) (Auto) 8 % (0-9) Eosinophils (%) (Auto) 1 % (0-3) Basophils (%) (Auto) 0 % (0-3) Neutrophils # (Auto) 5.5 x10^3uL (1.8-7.7) Lymphocytes # (Auto) 1.5 x10^3/uL (1.0-4.8) Monocytes # (Auto) 0.6 x10^3/uL (0.0-1.1) Eosinophils # (Auto) 0.1 x10^3/uL (0.0-0.7) Basophils # (Auto) 0.0 x10^3/uL (0.0-0.2) Erythrocyte Sedimentation Rate 143 (0-25) Sodium Level 140 mmol/L (136-145) Potassium Level 4.1 mmol/L (3.5-5.1) Chloride Level 104 mmol/L (98-107) Carbon Dioxide Level 26 mmol/L (21-32) Anion Gap 10 (6-14) Blood Urea Nitrogen 69 mg/dL (7-20) Creatinine 2.9 mg/dL (0.6-1.0) Estimated GFR (Cockcroft-Gault) 16.3 BUN/Creatinine Ratio 24 (6-20) Glucose Level 83 mg/dL (70-99) Calcium Level 9.1 mg/dL (8.5-10.1) Total Bilirubin 0.4 mg/dL (0.2-1.0) Aspartate Amino Transf (AST/SGOT) 30 U/L (15-37) Alanine Aminotransferase (ALT/SGPT) 25 U/L (14-59) Alkaline Phosphatase 60 U/L (46-116) Total Protein 8.3 g/dL (6.4-8.2) Albumin 2.5 g/dL (3.4-5.0) Albumin/Globulin Ratio 0.4 (1.0-1.7) Micro bc neg wound swab mssa and strep Objective Assessment IMPRESSION: 1. Right foot nonhealing diabetic foot wound, suspect osteo with marked elevation of erythrocyte sedimentation rate.C/S + MSSA and Grp B strep 2. Diabetes mellitus with peripheral neuropathy and rt foot Charcot's arthropathy. 3. Chronic kidney disease. 4. Acute kidney injury, anemia. 5. PVD 6. Obesity. 7. Penicillin allergy with rash. Plan Plan of Care REC Awaiting Podiatry for further evaluation of incision and drainage. agree with vascular evaluation continue ertapenem 0.5 grams IV every day tolerating it well If incision and drainage is done, please send for tissue for routine studies including cultures and susceptibility. Antibiotic alone may not be optimal. awaiting vascular evaluation local wound care LUIZ ANRDEA MD Feb 12, 2017 12:28
[2017-02-12 14:56] VITALS: BP 88/38
--- NOTE | 2017-02-12 16:04 | RAD ---
Ultrasound arterial Doppler lower x-rays Indication: Right foot ulcer Technique: Grayscale, color Doppler and spectral waveform ultrasound of the bilateral lower axillary arteries. Comparison: None Findings: Right side: Triphasic waveform is seen in the TEXTILE CUTTING MACHINE OPERATOR. Triphasic waveform is seen in the profunda femoris artery. Triphasic waveform is seen in the proximal mid and distal SFA. Triphasic waveform is seen in the popliteal artery. Triphasic waveform is seen in the proximal and distal posterior tibial artery. Biphasic waveform is seen in the anterior tibial artery. Monophasic waveform is seen in the dorsalis pedis artery with increased velocity measuring 158 cm/s. Peroneal artery not visualized. Left side: Triphasic waveforms seen in the TEXTILE CUTTING MACHINE OPERATOR. Biphasic waveform seen in the profunda femoris artery. Triphasic waveform is seen in the proximal mid and distal SFA. Triphasic waveforms seen in the popliteal artery. Triphasic waveform is seen in the proximal and distal posterior tibial artery. Biphasic waveforms seen in the anterior tibial artery and dorsalis pedis artery. Biphasic waveform is seen in the peroneal artery. Impression: 1. Loss of normal triphasic waveform and slight increase in the systolic velocity in the right dorsalis pedis artery suggests mild atherosclerotic disease. No high-grade stenosis. 2. Mild narrowing of the distal posterior tibial artery.
[2017-02-12 19:54] VITALS: BP 106/52
[2017-02-12] MEDS: FLUTICASONE 50MCG/NASAL SPRAY 16GM BOTTLE. NS SCH (20:52)
[2017-02-12] MEDS: INSULIN DETEMIR 300 UNITS/3 ML INSULN.PEN. SQ SCH (21:00)
[2017-02-12 23:50] VITALS: BP 169/61
--- NOTE | 2017-02-12 23:58 | CONS ---
DATE OF CONSULTATION: 02/12/2017 CHIEF COMPLAINT: Right foot ulcer. HISTORY OF PRESENT ILLNESS: The patient is a 66-year-old female with diabetes and peripheral neuropathy who presented with a right medial foot ulcer. She has chronic deformity of her right foot, but denies any previous areas of skin breakdown. She also has chronic renal insufficiency. She notes some mild discomfort in the ulcer, but otherwise is without complaints. PAST MEDICAL HISTORY: 1. Diabetes. 2. Peripheral neuropathy. 3. Hypertension. 4. Chronic kidney disease (class 3-4). PAST SURGICAL HISTORY: 1. Appendectomy. 2. Cholecystectomy. 3. section. 4. Tonsillectomy. ALLERGIES: INCLUDE PENICILLIN AND AMLODIPINE. FAMILY HISTORY: Significant for other family members with diabetes. SOCIAL HISTORY: She denies any smoking or alcohol use. CURRENT MEDICATIONS: Please see medication administration record for dosing. She is on insulin, erythropoietin, ertapenem, Percocet, hydrochlorothiazide, multivitamin, fenofibrate, atorvastatin, Zetia, vitamin C, iron sulfate, Coreg, glipizide, Pepcid, clonidine, vitamin D, Lactobacillus. REVIEW OF SYSTEMS: No recent fevers, chills, chest pain, shortness of breath, abdominal pain, nausea, vomiting, diarrhea, constipation, hematochezia or other GI symptoms. No unilateral weakness, numbness, visual loss, speech changes or other TIA or stroke type symptoms. She denies any previous history of ulcerations. PHYSICAL EXAMINATION: GENERAL: This is an obese female in no acute distress. VITAL SIGNS: Temperature 97.7, pulse 75, blood pressure 149/58, respirations 16. NECK: Supple, no lymphadenopathy. CARDIOVASCULAR: Regular rhythm. ABDOMEN: Obese, soft, nontender. EXTREMITIES: She has palpable radial pulses. Her pedal pulses are nonpalpable. She has no significant left leg swelling or areas of skin breakdown. She has Charcot deformity of her right foot with a 1.5-2 cm diameter superficial ulcer on the medial aspect of the right foot with a somewhat deeper 0.5 cm ulcer on the plantar aspect of the right foot. Minimal surrounding erythema at this time. No obvious areas of fluctuance. I was unable to get the bedside Doppler to work appropriately. LABORATORY DATA: Significant for white blood cell 7.8, hemoglobin 9.0, platelet count of 418. Sed rate of 143. Sodium 140, potassium 4.1, BUN 69, creatinine 2.9, glucose 83. MRI showed no definitive evidence of osteomyelitis. IMPRESSION: 1. Right medial and plantar foot ulcers consistent with neuropathic ulcers. 2. Peripheral arterial disease. 3. Diabetes. 4. Peripheral neuropathy. 5. Chronic kidney disease (class 4). 6. Hypertension. 7. Hyperlipidemia. RECOMMENDATIONS: 1. I discussed the likely etiology of the foot wound. Would recommend complete offloading of the area of ulceration. This will likely require a complete nonweightbearing at this time. 2. Continue local wound care and efforts at keeping the wound clean and dry. 3. We would recommend arterial ultrasound with ankle brachial index to further evaluate for arterial insufficiency. If she does have significant right foot arterial insufficiency, she may require further evaluation with angiography. Unfortunately, she has chronic renal insufficiency, which would increase risk of contrast nephropathy with angiogram. We will subsequently plan ultrasound prior to committing to an angiogram. JHON MANCILLA MD DR: EMIL/maria fernanda JOB#: [id number] / [id number] CINDY Botello MD, VENU MD
[2017-02-13] MEDS: IV NORMAL SALINE 1000ML BAG 1,000 ML IV SCH (02:29)
[2017-02-13] MEDS: cloNIDine HCL 0.2 MG TABLET PO SCH ×3 (02:34→13:23)
[2017-02-13 03:43] VITALS: BP 186/73
[2017-02-13 05:59] LABS: CREATININE 2.1 mg/dL (0.6-1.0); GFR 23.7; POTASSIUM 4.4 mmol/L (3.5-5.1)
[2017-02-13 06:55] VITALS: BP 186/69
[2017-02-13] MEDS: INSULIN ASPART 300 UNITS/3 ML INSULN.PEN SQ SCH ×4 (07:30→13:27)
[2017-02-13] MEDS: FENOFIBRATE,MICRONIZED 134 MG CAPSULE PO SCH (08:19)
[2017-02-13] MEDS: MULTIVITAMIN with MINERAL TABLET. PO SCH (08:19)
[2017-02-13] MEDS: EZETIMIBE 10 MG TABLET. PO SCH (08:19)
[2017-02-13] MEDS: LACTOBACILLUS RHAMNOSUS GG 1 CAPSULE. PO SCH (08:20)
[2017-02-13] MEDS: ATORVASTATIN CALCIUM 40 MG TABLET. PO SCH (08:20)
[2017-02-13] MEDS: ASCORBIC ACID 500 MG TABLET PO SCH (08:20)
[2017-02-13] MEDS: CARVEDILOL 12.5 MG TABLET. PO SCH (08:20)
[2017-02-13] MEDS: CHOLECALCIFEROL (VITAMIN D3) 1,000 UNIT TABLET PO SCH (08:20)
[2017-02-13] MEDS: hydroCHLOROthiazide 12.5 MG CAPSULE PO SCH (08:20)
[2017-02-13] MEDS: FERROUS SULFATE 325 MG TABLET. PO SCH (08:21)
[2017-02-13] MEDS: glipiZIDE 5 MG TABLET PO SCH (08:21)
[2017-02-13] MEDS ORDERED: MEROPENEM IV Push 1 GM VIAL. IVP SCH (09:00)
--- NOTE | 2017-02-13 09:50 | PDOC ---
Provider Note Provider Note Vascular S: Patient without complaints, states right foot swelling and redness have improved O: Alert and Ox3 VSS, afebrile right foot with ulcer clean, some slough, erythema and swelling improved Arterial US: Impression: 1. Loss of normal triphasic waveform and slight increase in the systolic velocity in the right dorsalis pedis artery suggests mild atherosclerotic disease. No high-grade stenosis. 2. Mild narrowing of the distal posterior tibial artery. A/P: 1. Right foot neuropathic foot ulcer 2. DM 3. Renal failure Discussed findings of arterial US with Dr. Nettles, US suggests patient has adequate arterial flow to heal ulcer requiring no additional arterial intervention at this time. Recommend continued local wound care, antibiotics and strict off-loading complete non-weight bearing. LEXIS RICHMOND ASSOCIATE RESEARCH SCIENTIST Feb 13, 2017 09:50
--- NOTE | 2017-02-13 10:14 | PDOC ---
Infectious Disease Note Subjective Subjective Pt feels ok vascular evaluation noted no f/c/v/d ROS ROS GEN: Denies fevers, chills, sweats HEENT: Denies blurred vision, sore throat CV: Denies chest pain RESP: Denies shortness of air, cough GI: Denies n/v/d NEURO: Denies confusion, dizziness MSK: Denies weakness, joint pain/swelling Vital Sign Vital Signs Vital Signs Date Time Temp Pulse Resp B/P (MAP) Pulse Ox O2 Delivery O2 Flow Rate FiO2 02/13/17 08:21 77 186/69 02/13/17 06:55 98.7 19 98 Room Air 98.7 Physical Exam PHYSICAL EXAM GENERAL: NAD, Alert HEENT: anicteric NECK: Supple, no JVD, LUNGS: Clear HEART: S1S2, ABD: Soft, NT, EXT: rt foot dressing intact FURNITURE DECALS INSPECTOR: Alert, oriented x 3, no focal neurologic deficit SKIN: No rash IV: ok Labs Lab Laboratory Tests Test 02/12/17 11:41 02/12/17 16:49 02/12/17 20:47 02/13/17 05:30 Glucose (Fingerstick) 226 mg/dL (70-99) 169 mg/dL (70-99) 180 mg/dL (70-99) Sodium Level 143 mmol/L (136-145) Potassium Level 4.4 mmol/L (3.5-5.1) Chloride Level 110 mmol/L (98-107) Carbon Dioxide Level 25 mmol/L (21-32) Anion Gap 8 (6-14) Blood Urea Nitrogen 61 mg/dL (7-20) Creatinine 2.1 mg/dL (0.6-1.0) Estimated GFR (Cockcroft-Gault) 23.7 Glucose Level 88 mg/dL (70-99) Calcium Level 9.0 mg/dL (8.5-10.1) Micro bc neg wound swab mssa and strep ELIGIO Impression: 1. Loss of normal triphasic waveform and slight increase in the systolic velocity in the right dorsalis pedis artery suggests mild atherosclerotic disease. No high-grade stenosis. 2. Mild narrowing of the distal posterior tibial artery. Objective Assessment IMPRESSION: 1. Right foot nonhealing diabetic foot wound, suspect osteo with marked elevation of erythrocyte sedimentation rate.C/S + MSSA and Grp B strep 2. Diabetes mellitus with peripheral neuropathy and rt foot Charcot's arthropathy. 3. Chronic kidney disease. 4. Acute kidney injury, anemia. 5. PVD 6. Obesity. 7. Penicillin allergy with rash. Plan Plan of Care Vascular input noted change to ertapenem to 0.5gm IV qd on dc home picc line management c diff edu done duration will be atleast 3-4 weeks depending on clinical response from 02/09 complete nwb local wound care no need for further surgical intervention per vascular LUIZ ANDREA MD Feb 13, 2017 10:14
[2017-02-13 10:35] VITALS: BP 175/65
[2017-02-13] MEDS ORDERED: ERTA1VIA IJ (10:44)
[2017-02-13] MEDS ORDERED: OXYC1TAB7 PO (10:44)
--- NOTE | 2017-02-13 12:33 | PDOC ---
Renal-Progress Notes Subjective Notes Notes NONE History of Present Illness Hx of present illness STABLE Vitals Vitals Vital Signs Date Time Temp Pulse Resp B/P (MAP) Pulse Ox O2 Delivery O2 Flow Rate FiO2 02/13/17 10:35 98.6 77 18 175/65 (101) 99 Room Air 98.6 Weight Weight [ ] I.O. Intake and Output Intake and Output 02/13/17 07:00 Intake Total 1600 ml Output Total 1800 ml Balance -200 ml Intake Oral 1600 ml Output Urine Total 1800 ml Labs Labs Laboratory Tests Test 02/12/17 16:49 02/12/17 20:47 02/13/17 05:30 02/13/17 11:57 Glucose (Fingerstick) 169 mg/dL (70-99) 180 mg/dL (70-99) 130 mg/dL (70-99) Sodium Level 143 mmol/L (136-145) Potassium Level 4.4 mmol/L (3.5-5.1) Chloride Level 110 mmol/L (98-107) Carbon Dioxide Level 25 mmol/L (21-32) Anion Gap 8 (6-14) Blood Urea Nitrogen 61 mg/dL (7-20) Creatinine 2.1 mg/dL (0.6-1.0) Estimated GFR (Cockcroft-Gault) 23.7 Glucose Level 88 mg/dL (70-99) Calcium Level 9.0 mg/dL (8.5-10.1) Micro Micro Microbiology 02/07/17 Blood Culture - Final, Complete NO GROWTH AFTER 5 DAYS 02/07/17 Gram Stain - Final, Complete Review of Systems Constitutional: yes: alert, oriented Ears/Nose/Throat: Yes: no symptom reported Eyes: Yes: no symptom reported Pulmonary: Yes no symptom reported Gastrointestional: Yes: no symptom reported Genitourinary: Yes: no symptom reported Skin: Yes no symptom reported Psychiatric/Neurological: Yes: no symptom reported Endocrine: Yes: no symptom reported Physical Exam General Appearance: no apparent distress Skin: warm Respiratory: bilateral CTA Heart: S1S2 Abdomen: soft, bowel sounds present Genitourinary: bladder flat Extremities: pulses present Neurology: alert, oriented Assessment Assessment IMP MILD KOFI-RESOLVED WITH CR DOWN TO 2.1 CKD STATGE 3-CR AT BASELINE NOW OF ABOUT 2.5 ON AVG DM II HTN-UNCONTROLLED R FOOT WOUND PLAN IVF'S RESUME LISINOPRIL MAY NEED ARTERIOGRAM D/W ATTENDING AND VASCULAR SURGERY ANTIBIOTICS LABS IN AM JOSE ESTRADA MD Feb 13, 2017 12:33
[2017-02-13] MEDS ORDERED: LISINOPRIL 10 MG TABLET PO SCH (13:00)
--- NOTE | 2017-02-13 14:17 | PDOC ---
PROGRESS NOTES Chief Complaint Chief Complaint late entry, pt seen 02/12 1. DM wound, draining RT medial side, suspect osteo right foot due to marked ESR 2. fever and tachycardia on admit, sepsis 3. DM 2 with hypoglycemia - last Hgb a1c 5.7 4,. CKD 4 and , anemia of CKD stable 5,. Obesity BMI 31 6. Hypoglycemia, resolved 7. PCN adverse rxn History of Present Illness History of Present Illness MRI reviewed vascular consult has been seen by Podiatry , with bone inflammation, charcot foot from chronic foot deformity, inflammation could be expected from that ID recommended PICC will need nursing home abx Hgba 1c was 5.7 recently Draining foot lesion drying up WBC 14 on admit ESR > 140, will eval with MRI, ID consult BC prelim neg PCN allergy Wound GS: Vitals Vitals Vital Signs Date Time Temp Pulse Resp B/P (MAP) Pulse Ox O2 Delivery O2 Flow Rate FiO2 02/13/17 13:23 77 175/65 02/13/17 10:35 98.6 18 99 Room Air 98.6 Physical Exam General: Alert, Oriented X3, Cooperative Heart: Regular rate, Normal S1, Normal S2 Lungs: Clear Abdomen: Normal bowel sounds, Soft Extremities: No clubbing, No cyanosis Skin: Other (draining dorsal wound, medial side, creamy draiange, non foul smlelling, swelling RT dorsum foot, some pain on exam, round wound) Labs LABS Laboratory Tests Test 02/12/17 16:49 02/12/17 20:47 02/13/17 05:30 02/13/17 11:57 Glucose (Fingerstick) 169 mg/dL (70-99) 180 mg/dL (70-99) 130 mg/dL (70-99) Sodium Level 143 mmol/L (136-145) Potassium Level 4.4 mmol/L (3.5-5.1) Chloride Level 110 mmol/L (98-107) Carbon Dioxide Level 25 mmol/L (21-32) Anion Gap 8 (6-14) Blood Urea Nitrogen 61 mg/dL (7-20) Creatinine 2.1 mg/dL (0.6-1.0) Estimated GFR (Cockcroft-Gault) 23.7 Glucose Level 88 mg/dL (70-99) Calcium Level 9.0 mg/dL (8.5-10.1) Assessment and Plan Assessmemt and Plan Problems Medical Problems: (1) Renal failure Status: Acute Problems: Comment Review of Relevant I have reviewed the following items gerson (where applicable) has been applied. Labs Laboratory Tests Test 02/11/17 17:41 02/12/17 04:15 02/12/17 07:16 02/12/17 11:41 Glucose (Fingerstick) 116 mg/dL (70-99) 85 mg/dL (70-99) 226 mg/dL (70-99) White Blood Count 7.8 x10^3/uL (4.0-11.0) Red Blood Count 3.02 x10^6/uL (3.50-5.40) Hemoglobin 9.0 g/dL (12.0-15.5) Hematocrit 27.2 % (36.0-47.0) Mean Corpuscular Volume 90 fL (79-100) Mean Corpuscular Hemoglobin 30 pg (25-35) Mean Corpuscular Hemoglobin Concent 33 g/dL (31-37) Red Cell Distribution Width 14.5 % (11.5-14.5) Platelet Count 418 x10^3/uL (140-400) Neutrophils (%) (Auto) 71 % (31-73) Lymphocytes (%) (Auto) 20 % (24-48) Monocytes (%) (Auto) 8 % (0-9) Eosinophils (%) (Auto) 1 % (0-3) Basophils (%) (Auto) 0 % (0-3) Neutrophils # (Auto) 5.5 x10^3uL (1.8-7.7) Lymphocytes # (Auto) 1.5 x10^3/uL (1.0-4.8) Monocytes # (Auto) 0.6 x10^3/uL (0.0-1.1) Eosinophils # (Auto) 0.1 x10^3/uL (0.0-0.7) Basophils # (Auto) 0.0 x10^3/uL (0.0-0.2) Erythrocyte Sedimentation Rate 143 (0-25) Sodium Level 140 mmol/L (136-145) Potassium Level 4.1 mmol/L (3.5-5.1) Chloride Level 104 mmol/L (98-107) Carbon Dioxide Level 26 mmol/L (21-32) Anion Gap 10 (6-14) Blood Urea Nitrogen 69 mg/dL (7-20) Creatinine 2.9 mg/dL (0.6-1.0) Estimated GFR (Cockcroft-Gault) 16.3 BUN/Creatinine Ratio 24 (6-20) Glucose Level 83 mg/dL (70-99) Calcium Level 9.1 mg/dL (8.5-10.1) Total Bilirubin 0.4 mg/dL (0.2-1.0) Aspartate Amino Transf (AST/SGOT) 30 U/L (15-37) Alanine Aminotransferase (ALT/SGPT) 25 U/L (14-59) Alkaline Phosphatase 60 U/L (46-116) Total Protein 8.3 g/dL (6.4-8.2) Albumin 2.5 g/dL (3.4-5.0) Albumin/Globulin Ratio 0.4 (1.0-1.7) Test 02/12/17 16:49 02/12/17 20:47 02/13/17 05:30 02/13/17 11:57 Glucose (Fingerstick) 169 mg/dL (70-99) 180 mg/dL (70-99) 130 mg/dL (70-99) Sodium Level 143 mmol/L (136-145) Potassium Level 4.4 mmol/L (3.5-5.1) Chloride Level 110 mmol/L (98-107) Carbon Dioxide Level 25 mmol/L (21-32) Anion Gap 8 (6-14) Blood Urea Nitrogen 61 mg/dL (7-20) Creatinine 2.1 mg/dL (0.6-1.0) Estimated GFR (Cockcroft-Gault) 23.7 Glucose Level 88 mg/dL (70-99) Calcium Level 9.0 mg/dL (8.5-10.1) Laboratory Tests Test 02/12/17 16:49 02/12/17 20:47 02/13/17 05:30 02/13/17 11:57 Glucose (Fingerstick) 169 mg/dL (70-99) 180 mg/dL (70-99) 130 mg/dL (70-99) Sodium Level 143 mmol/L (136-145) Potassium Level 4.4 mmol/L (3.5-5.1) Chloride Level 110 mmol/L (98-107) Carbon Dioxide Level 25 mmol/L (21-32) Anion Gap 8 (6-14) Blood Urea Nitrogen 61 mg/dL (7-20) Creatinine 2.1 mg/dL (0.6-1.0) Estimated GFR (Cockcroft-Gault) 23.7 Glucose Level 88 mg/dL (70-99) Calcium Level 9.0 mg/dL (8.5-10.1) Microbiology 02/07/17 Blood Culture - Final, Complete NO GROWTH AFTER 5 DAYS 02/07/17 Gram Stain - Final, Complete Medications Current Medications Sodium Chloride 1,000 ml @ 2,454 mls/hr Q25M IV Last administered on 21:27; Start 02/07/17 at 12:30; Stop 02/07/17 at 13:30; Status DC Vancomycin HCl (Vanco Per Pharmacy) 1 each PRN DAILY PRN MC SEE COMMENTS Last administered on 02/10/17 15:30; Start 02/07/17 at 12:30; Stop 02/11/17 at 10 :36; Status DC Levofloxacin/ Dextrose (Levaquin Per Pharmacy) 1 each PRN DAILY PRN MC SEE COMMENTS; Start 02/07/17 at 12:30; Stop 02/10/17 at 15:27; Status DC Vancomycin HCl 1.5 gm/Dextrose/ Sodium Chloride 500 ml @ 250 mls/hr 1X ONCE IV Last administered on 02/07/17 13:26; Start 02/07/17 at 12:45; Stop 02/07 at 14:44; Status DC Levofloxacin/ Dextrose 150 ml @ 100 mls/hr 1X ONCE IV Last administered on 13:35; Start 02/07/17 at 12:45; Stop 02/07/17 at 14:14; Status DC Ondansetron HCl (Zofran) 4 mg PRN Q8HRS PRN IV NAUSEA/VOMITING; Start at 13:15; Stop 02/08/17 at 13:14; Status DC Fentanyl Citrate (Fentanyl 2ml Vial) 50 mcg PRN Q2HR PRN IV PAIN; Start at 13:15; Stop 02/08/17 at 13:14; Status DC Acetaminophen (Tylenol) 650 mg PRN Q4HRS PRN PO FEVER Last administered on 19:25; Start 02/07/17 at 13:15; Stop 02/08/17 at 13:14; Status DC Levofloxacin/ Dextrose 150 ml @ 100 mls/hr Q48H IV Last administered on 12:10; Start 02/09/17 at 13:00; Stop 02/11/17 at 10:35; Status DC Lactobacillus Rhamnosus (Culturelle) 1 cap BID PO Last administered on 08:20; Start 02/07/17 at 21:00 Insulin Aspart (NovoLOG) 0-7 UNITS TIDWMEALS SQ Last administered on 17:37; Start 02/07/17 at 18:00 Dextrose (Dextrose 50%-Water Syringe) 12.5 gm PRN Q15MIN PRN IV SEE COMMENTS; Start 02/07/17 at 18:00 Ascorbic Acid (Vitamin C) 500 mg DAILY PO Last administered on 02/13/17 08:20 ; Start 02/08/17 at 09:00 Vitamin D (Vitamin D3) 1,000 unit BID PO Last administered on 02/13/17 08:20 ; Start 02/07/17 at 21:00 Clonidine HCl (Catapres) 0.2 mg TID PO Last administered on 02/13/17 13:23; Start 02/07/17 at 21:00 Darbepoetin Yuriy (Aranesp) 60 mcg Q2WKS@2100 SQ ; Start 02/21/17 at 21:00; Status Cancel EZETIMIBE (Zetia) 10 mg DAILY PO Last administered on 02/13/17 08:19; Start 02/08/17 at 09:00 Fluticasone Propionate (Flonase) 2 spray HS NS Last administered on 02/12/17 20:52; Start 02/07/17 at 21:00 Insulin Aspart (NovoLOG) 20 units QIDACHS SQ Last administered on 02/08/17 09 :19; Start 02/07/17 at 21:00; Stop 02/08/17 at 14:49; Status DC Insulin Detemir (Levemir) 42 units HS SQ Last administered on 02/12/17 21:00 ; Start 02/07/17 at 21:00 Atorvastatin Calcium (Lipitor) 80 mg DAILY PO Last administered on 02/13/17 08:20; Start 02/08/17 at 09:00 Carvedilol (Coreg) 25 mg BIDWMEALS PO Last administered on 02/13/17 08:20; Start 02/08/17 at 08:00 Non-Formulary Medication 500 mg DAILY PO ; Start 02/08/17 at 09:00; Status UNV Fenofibrate (Lofibra) 134 mg DAILY PO Last administered on 02/13/17 08:19; Start 02/08/17 at 09:00 Ferrous Sulfate (Feosol) 325 mg BIDWMEALS PO Last administered on 02/13/17 08 :21; Start 02/08/17 at 08:00 Glipizide (Glucotrol) 10 mg BIDBFRMEAL PO Last administered on 02/13/17 08:21 ; Start 02/08/17 at 07:30 Non-Formulary Medication 1.8 mg DAILY SQ ; Start 02/08/17 at 09:00; Stop 02/09 at 15:57; Status DC Lisinopril (Prinivil) 20 mg DAILY PO Last administered on 02/11/17 08:26; Start 02/08/17 at 09:00; Stop 02/11/17 at 11:33; Status DC Multivitamins (Thera M Plus) 1 tab DAILY PO Last administered on 02/13/17 08: 19; Start 02/08/17 at 09:00 Famotidine (Pepcid) 20 mg PRN BID PRN PO DYSPEPSIA; Start 02/07/17 at 21:00 Hydrochlorothiazide (Microzide) 12.5 mg DAILY PO Last administered on 08:20; Start 02/08/17 at 09:00 Ondansetron HCl (Zofran) 4 mg PRN Q6HRS PRN IV NAUSEA/VOMITING; Start at 13:00 Vancomycin HCl 1.25 gm/Dextrose 250 ml @ 167 mls/hr Q24H IV Last administered on 02/10/17 14:00; Start 02/08/17 at 15:00; Stop 02/11/17 at 10:35; Status DC Vancomycin HCl 1 each 1X ONCE MC ; Start 02/09/17 at 14:30; Stop 02/09/17 at 14:31; Status DC Insulin Aspart (NovoLOG) 10 units QIDACHS SQ Last administered on 02/11/17 18 :14; Start 02/08/17 at 16:30; Stop 02/12/17 at 11:16; Status DC Furosemide (Lasix) 40 mg DAILY PO Last administered on 02/11/17 08:27; Start 02/08/17 at 16:30; Stop 02/11/17 at 11:33; Status DC Oxycodone/ Acetaminophen (Percocet 5/325) 1 tab PRN Q6HRS PRN PO SEVERE PAIN Last administered on 02/10/17 21:34; Start 02/08/17 at 22:30 Ertapenem 0.5 gm/ Sodium Chloride 50 ml @ 100 mls/hr DAILY IV Last administered on 02/12/17 10:50; Start 02/11/17 at 12:00; Stop 02/12/17 at 16 :00; Status DC Sodium Chloride 1,000 ml @ 75 mls/hr [id number] IV Last administered on 02:29; Start 02/11/17 at 11:45 Darbepoetin Yuriy (Aranesp) 60 mcg WEEKLYHS SQ Last administered on 02/11/17 22:08; Start 02/11/17 at 21:00 Lidocaine/Sodium Bicarbonate (Buffered Lidocaine 1%) 20 ml STK-MED ONCE IJ ; Start 02/12/17 at 07:52; Stop 02/12/17 at 07:53; Status DC Lidocaine/Sodium Bicarbonate (Buffered Lidocaine 1%) 3 ml 1X ONCE IJ Last administered on 02/12/17 08:49; Start 02/12/17 at 08:45; Stop 02/12/17 at 08 :46; Status DC Insulin Aspart (NovoLOG) 10 units TIDAC SQ Last administered on 02/13/17 13: 27; Start 02/12/17 at 11:30 Meropenem (Merrem) 1 gm DAILY IVP Last administered on 02/13/17 08:23; Start 02/13/17 at 09:00 Lisinopril (Prinivil) 10 mg DAILY PO Last administered on 02/13/17 13:23; Start 02/13/17 at 13:00 Active Scripts Active Invanz (Ertapenem Sodium) 1 Gm Vial 0.5 Gm IJ DAILY 28 Days Oxycodone-Acetaminophen 5-325 (Oxycodone Hcl/Acetaminophen) 1 Each Tablet 1 Tab PO PRN Q6HRS PRN Reported Aranesp Syringe (Darbepoetin Yuriy In Polysorbat) 60 Mcg/0.3 Ml Disp.syrin 60 Mcg SQ Q2WKS Novolog Flexpen (Insulin Aspart) 100 Unit/1 Ml Insuln.pen 20 Unit SQ QIDACHS Levemir Flextouch (Insulin Detemir) 100 Unit/1 Ml Insuln.pen 42 Units SQ HS Atorvastatin Calcium 80 Mg Tablet 80 Mg PO DAILY Ranitidine Hcl 150 Mg Capsule 150 Mg PO PRN BID PRN Ipratropium [place] Gap 15 Ml Bath 15 Ml NS PRN PRN Fenofibrate 160 Mg Tablet 1 Tab PO DAILY Cranberry (Cranberry Extract) 500 Mg Capsule 500 Mg PO DAILY Victoza 3-Mal (Liraglutide) 0.6 Mg/0.1 Ml Pen.injctr 1.8 Mg SQ DAILY Ascorbic Acid 500 Mg Tablet 500 Mg PO DAILY Iron (Ferrous Sulfate) 325 Mg Capsule.er 325 Mg PO BID Vitamin D3 (Cholecalciferol (Vitamin D3)) 1,000 Unit Tablet 1 Tab PO BID Lisinopril-Hctz 20-12.5 Mg Tab (Lisinopril/Hydrochlorothiazide) 1 Each Tablet 1 Tab PO BID Zetia (Ezetimibe) 10 Mg Tablet 1 Tab PO DAILY Clonidine Hcl 0.2 Mg Tablet 1 Tab PO TID Glipizide 10 Mg Tablet 1 Tab PO BID Coreg Cr (Carvedilol Phosphate) 40 Mg Cpmp.24hr 2 Cap PO DAILY Multi-Day Vitamins (Multivitamin) 1 Each Tablet 1 Tab PO DAILY Fluticasone Propionate Nasal Bath (Fluticasone Propionate) 16 Gm Bath.susp 2 Bath NS HS Vitals/I & O Vital Sign - Last 24 Hours 02/12/17 02/12/17 02/12/17 02/12/17 14:56 17:00 19:54 20:05 Temp 98.1 98.2 98.1 98.2 Pulse 68 70 80 Resp 16 16 B/P (MAP) 88/38 (55) 124/38 106/52 (70) Pulse Ox 98 98 O2 Delivery Room Air Room Air Room Air 02/12/17 02/13/17 02/13/17 02/13/17 23:50 02:34 03:43 06:55 Temp 97.8 97.8 98.7 97.8 97.8 98.7 Pulse 79 86 85 77 Resp 16 16 19 B/P (MAP) 169/61 (97) 186/73 186/73 (110) 186/69 (108) Pulse Ox 97 98 98 O2 Delivery Room Air Room Air Room Air 02/13/17 02/13/17 02/13/17 02/13/17 08:00 08:20 08:21 10:35 Temp 98.6 98.6 Pulse 77 77 77 Resp 18 B/P (MAP) 186/69 186/69 175/65 (101) Pulse Ox 99 O2 Delivery Room Air Room Air 02/13/17 02/13/17 13:23 13:23 Pulse 77 77 B/P (MAP) 175/65 175/65 Intake and Output 02/12/17 02/12/17 02/13/17 15:00 23:00 07:00 Intake Total 800 ml 800 ml Output Total 450 ml 1350 ml Balance 350 ml -550 ml CINDY WHEAT MD Feb 13, 2017 14:17
--- NOTE | 2017-02-13 14:24 | PDOC3 ---
Discharge Summary Visit Information Date of Admission: Feb 07, 2017 Date of Discharge: Feb 13, 2017 Admitting Diagnosis: cellulitis foot Final Diagnosis 1. DM2 with foot wound, draining RT medial side, 2. fever and tachycardia on admit, sepsis 3. DM 2 with hypoglycemia - last Hgb a1c 5.7 4,. CKD 4 and , anemia of CKD stable 5,. Obesity BMI 31 6. Hypoglycemia, resolved 7. PCN adverse rxn Problems Medical Problems: (1) Renal failure Status: Acute Brief Hospital Course Allergies Allergies Coded Allergies Type Severity Reaction Last Updated Verified Penicillins Allergy Intermediate 02/13/17 Yes amlodipine Allergy Intermediate Swelling 11/22/16 Yes Vital Signs Vital Signs Date Time Temp Pulse Resp B/P (MAP) Pulse Ox O2 Delivery O2 Flow Rate FiO2 02/13/17 13:23 77 175/65 02/13/17 10:35 98.6 18 99 Room Air 98.6 Lab Results Laboratory Tests Test 02/11/17 17:41 02/12/17 04:15 02/12/17 07:16 02/12/17 11:41 Glucose (Fingerstick) 116 mg/dL (70-99) 85 mg/dL (70-99) 226 mg/dL (70-99) White Blood Count 7.8 x10^3/uL (4.0-11.0) Red Blood Count 3.02 x10^6/uL (3.50-5.40) Hemoglobin 9.0 g/dL (12.0-15.5) Hematocrit 27.2 % (36.0-47.0) Mean Corpuscular Volume 90 fL (79-100) Mean Corpuscular Hemoglobin 30 pg (25-35) Mean Corpuscular Hemoglobin Concent 33 g/dL (31-37) Red Cell Distribution Width 14.5 % (11.5-14.5) Platelet Count 418 x10^3/uL (140-400) Neutrophils (%) (Auto) 71 % (31-73) Lymphocytes (%) (Auto) 20 % (24-48) Monocytes (%) (Auto) 8 % (0-9) Eosinophils (%) (Auto) 1 % (0-3) Basophils (%) (Auto) 0 % (0-3) Neutrophils # (Auto) 5.5 x10^3uL (1.8-7.7) Lymphocytes # (Auto) 1.5 x10^3/uL (1.0-4.8) Monocytes # (Auto) 0.6 x10^3/uL (0.0-1.1) Eosinophils # (Auto) 0.1 x10^3/uL (0.0-0.7) Basophils # (Auto) 0.0 x10^3/uL (0.0-0.2) Erythrocyte Sedimentation Rate 143 (0-25) Sodium Level 140 mmol/L (136-145) Potassium Level 4.1 mmol/L (3.5-5.1) Chloride Level 104 mmol/L (98-107) Carbon Dioxide Level 26 mmol/L (21-32) Anion Gap 10 (6-14) Blood Urea Nitrogen 69 mg/dL (7-20) Creatinine 2.9 mg/dL (0.6-1.0) Estimated GFR (Cockcroft-Gault) 16.3 BUN/Creatinine Ratio 24 (6-20) Glucose Level 83 mg/dL (70-99) Calcium Level 9.1 mg/dL (8.5-10.1) Total Bilirubin 0.4 mg/dL (0.2-1.0) Aspartate Amino Transf (AST/SGOT) 30 U/L (15-37) Alanine Aminotransferase (ALT/SGPT) 25 U/L (14-59) Alkaline Phosphatase 60 U/L (46-116) Total Protein 8.3 g/dL (6.4-8.2) Albumin 2.5 g/dL (3.4-5.0) Albumin/Globulin Ratio 0.4 (1.0-1.7) Test 02/12/17 16:49 02/12/17 20:47 02/13/17 05:30 02/13/17 11:57 Glucose (Fingerstick) 169 mg/dL (70-99) 180 mg/dL (70-99) 130 mg/dL (70-99) Sodium Level 143 mmol/L (136-145) Potassium Level 4.4 mmol/L (3.5-5.1) Chloride Level 110 mmol/L (98-107) Carbon Dioxide Level 25 mmol/L (21-32) Anion Gap 8 (6-14) Blood Urea Nitrogen 61 mg/dL (7-20) Creatinine 2.1 mg/dL (0.6-1.0) Estimated GFR (Cockcroft-Gault) 23.7 Glucose Level 88 mg/dL (70-99) Calcium Level 9.0 mg/dL (8.5-10.1) Laboratory Tests Test 02/12/17 16:49 02/12/17 20:47 02/13/17 05:30 02/13/17 11:57 Glucose (Fingerstick) 169 mg/dL (70-99) 180 mg/dL (70-99) 130 mg/dL (70-99) Sodium Level 143 mmol/L (136-145) Potassium Level 4.4 mmol/L (3.5-5.1) Chloride Level 110 mmol/L (98-107) Carbon Dioxide Level 25 mmol/L (21-32) Anion Gap 8 (6-14) Blood Urea Nitrogen 61 mg/dL (7-20) Creatinine 2.1 mg/dL (0.6-1.0) Estimated GFR (Cockcroft-Gault) 23.7 Glucose Level 88 mg/dL (70-99) Calcium Level 9.0 mg/dL (8.5-10.1) Brief Hospital Course Ms. Vizcaino is a 66 old female, admit with right midfoot cellulitis with abcess , spot drainage Dm2, good control CKD 4, renal followed vascular consult has been seen by Podiatry Artery US ok, mild Hgba 1c was 5.7 recently Draining foot lesion drying up WBC 14 ESR > 140, MRI showed edema, no joi osteo Discharge Information Condition at Discharge: Improved Follow Up: Weeks Disposition/Orders: D/C to Home w/ HH Scheduled Ascorbic Acid (Ascorbic Acid), 500 MG PO DAILY, (Reported) Atorvastatin Calcium (Atorvastatin Calcium), 80 MG PO DAILY, (Reported) Carvedilol Phosphate (Coreg Cr), 2 CAP PO DAILY, (Reported) Cholecalciferol (Vitamin D3) (Vitamin D3), 1 TAB PO BID, (Reported) Clonidine Hcl (Clonidine Hcl), 1 TAB PO TID, (Reported) Cranberry Extract (Cranberry), 500 MG PO DAILY, (Reported) Darbepoetin Yuriy In Polysorbat (Aranesp Syringe), 60 MCG SQ Q2WKS, (Reported) Ertapenem Sodium (Invanz), 0.5 GM IJ DAILY Ezetimibe (Zetia), 1 TAB PO DAILY, (Reported) Fenofibrate (Fenofibrate), 1 TAB PO DAILY, (Reported) Ferrous Sulfate (Iron), 325 MG PO BID, (Reported) Fluticasone Propionate (Fluticasone Propionate Nasal [place]), 2 SPRAY NS HS, ( Reported) Glipizide (Glipizide), 1 TAB PO BID, (Reported) Insulin Aspart (Novolog Flexpen), 20 UNIT SQ QIDACHS, (Reported) Insulin Detemir (Levemir Flextouch), 42 UNITS SQ HS, (Reported) Liraglutide (Victoza 3-Mal), 1.8 MG SQ DAILY, (Reported) Lisinopril/Hydrochlorothiazide (Lisinopril-Hctz 20-12.5 Mg Tab), 1 TAB PO BID, ( Reported) Multivitamin (Multi-Day Vitamins), 1 TAB PO DAILY, (Reported) Scheduled PRN Ipratropium Uvalda (Ipratropium Uvalda), 15 ML NS PRN PRN for ALLERGIES, ( Reported) Oxycodone Hcl/Acetaminophen (Oxycodone-Acetaminophen 5-325), 1 TAB PO PRN Q6HRS PRN for SEVERE PAIN Ranitidine Hcl (Ranitidine Hcl), 150 MG PO PRN BID PRN for DYSPEPSIA, (Reported) Patient Instructions Patient Instructions 4 weeks iv abx, Invanz 0.5 daily f.u ID clinic face to face eval > 30 min CINDY WHEAT MD Feb 13, 2017 14:23
[2017-02-13 14:43] VITALS: BP 103/36
[2017-02-21] MEDS ORDERED: DARBEPOETIN ALFA 60 MCG/0.3 ML DISP.SYRIN. SQ SCH (21:00)
== END 2017-02-13 16:43 | disposition home health service (06) | DRG 872 ==
LOC: ER 11:37 → 6 SOUTH 12:54
PROVIDERS: ADMIT Internal Medicine; ATTEND Internal Medicine
PROC: 02HV33Z Insertion of Infusion Device into Superior Vena Cava, Percutaneous Approach (ICD-10-PCS; principal; 2017-02-12)
PROC: B5181ZA Fluoroscopy of Superior Vena Cava using Low Osmolar Contrast, Guidance (ICD-10-PCS; 2017-02-12)
PROC: B548ZZA Ultrasonography of Superior Vena Cava, Guidance (ICD-10-PCS; 2017-02-12)
DX: A41.9 Sepsis, unspecified organism (principal); E11.22 Type 2 diabetes mellitus with diabetic chronic kidney disease; E11.42 Type 2 diabetes mellitus with diabetic polyneuropathy; N17.9 Acute kidney failure, unspecified; N18.4 Chronic kidney disease, stage 4 (severe); L03.90 Cellulitis, unspecified; L97.409 Non-pressure chronic ulcer of unspecified heel and midfoot with unspecified severity; D63.1 Anemia in chronic kidney disease; E11.51 Type 2 diabetes mellitus with diabetic peripheral angiopathy without gangrene; E11.610 Type 2 diabetes mellitus with diabetic neuropathic arthropathy; E11.621 Type 2 diabetes mellitus with foot ulcer; E11.649 Type 2 diabetes mellitus with hypoglycemia without coma; E66.9 Obesity, unspecified; E11.65 Type 2 diabetes mellitus with hyperglycemia; E78.5 Hyperlipidemia, unspecified; E86.0 Dehydration; I12.9 Hypertensive chronic kidney disease with stage 1 through stage 4 chronic kidney disease, or unspecified chronic kidney disease; I73.00 Raynaud's syndrome without gangrene; L97.519 Non-pressure chronic ulcer of other part of right foot with unspecified severity; M12.9 Arthropathy, unspecified; M21.40 Flat foot [pes planus] (acquired), unspecified foot; M21.969 Unspecified acquired deformity of unspecified lower leg; Z68.31 Body mass index [BMI] 31.0-31.9, adult; Z83.3 Family history of diabetes mellitus; Z88.0 Allergy status to penicillin; Z90.49 Acquired absence of other specified parts of digestive tract; Z90.89 Acquired absence of other organs; Z90.710 Acquired absence of both cervix and uterus; Z88.1 Allergy status to other antibiotic agents
CPT/HCPCS: 36415; 36569; 71010; 73630; 73718; 76937; 77001; 80048; 80053; 80202; 81001; 82962; 83605; 85007; 85025; 85651; 87040; 87071; 87075; 87186; 87205; 87324; 93005; 93925; C1751; C1892; J0881; J1335; J1815; J1956; J2185; J3370; J7030; 97116; 97530; 99285-25

== ENCOUNTER → 2017-02-20 | Outpatient (CLI) | payer OTHER ==
[2017-02-13 14:43] VITALS: BP 103/36
[~2017-02-20] MED LIST changes: +ATOR80TA72 PO; +DARB60DI SQ; +ERTA1VIA IJ; +INSU100I27 SQ; +OXYC1TAB7 PO
== END | disposition home or self-care (01) ==
LOC: PMGWOUND 11:19
PROVIDERS: ATTEND Emergency Medicine Undersea and Hyperbaric Medicine
DX: E11.621 Type 2 diabetes mellitus with foot ulcer (principal); L97.413 Non-pressure chronic ulcer of right heel and midfoot with necrosis of muscle; E78.00 Pure hypercholesterolemia, unspecified; M19.90 Unspecified osteoarthritis, unspecified site; E11.22 Type 2 diabetes mellitus with diabetic chronic kidney disease; I12.9 Hypertensive chronic kidney disease with stage 1 through stage 4 chronic kidney disease, or unspecified chronic kidney disease; N18.4 Chronic kidney disease, stage 4 (severe); E78.5 Hyperlipidemia, unspecified; E66.9 Obesity, unspecified; Z68.31 Body mass index [BMI] 31.0-31.9, adult; E11.610 Type 2 diabetes mellitus with diabetic neuropathic arthropathy; E11.42 Type 2 diabetes mellitus with diabetic polyneuropathy; E11.51 Type 2 diabetes mellitus with diabetic peripheral angiopathy without gangrene; Z87.891 Personal history of nicotine dependence
CPT/HCPCS: 97597

== ENCOUNTER → 2017-02-25 | Outpatient (CLI) | payer OTHER ==
[2017-02-13 14:43] VITALS: BP 103/36
== END | disposition home or self-care (01) ==
LOC: PMGWOUND 08:54
PROVIDERS: ATTEND Emergency Medicine Undersea and Hyperbaric Medicine
DX: E11.621 Type 2 diabetes mellitus with foot ulcer (principal); L97.413 Non-pressure chronic ulcer of right heel and midfoot with necrosis of muscle; E11.610 Type 2 diabetes mellitus with diabetic neuropathic arthropathy; E11.42 Type 2 diabetes mellitus with diabetic polyneuropathy; E11.51 Type 2 diabetes mellitus with diabetic peripheral angiopathy without gangrene; E11.65 Type 2 diabetes mellitus with hyperglycemia; E11.649 Type 2 diabetes mellitus with hypoglycemia without coma; E11.22 Type 2 diabetes mellitus with diabetic chronic kidney disease; I12.9 Hypertensive chronic kidney disease with stage 1 through stage 4 chronic kidney disease, or unspecified chronic kidney disease; N18.4 Chronic kidney disease, stage 4 (severe); E78.00 Pure hypercholesterolemia, unspecified; M19.90 Unspecified osteoarthritis, unspecified site; E66.9 Obesity, unspecified; Z68.30 Body mass index [BMI] 30.0-30.9, adult; Z87.891 Personal history of nicotine dependence; Z90.710 Acquired absence of both cervix and uterus; Z90.89 Acquired absence of other organs; Z90.49 Acquired absence of other specified parts of digestive tract
CPT/HCPCS: 93922; 97597

== ENCOUNTER → 2017-03-03 | Outpatient (CLI) | payer OTHER ==
[2017-02-13 14:43] VITALS: BP 103/36
== END | disposition home or self-care (01) ==
LOC: PMGWOUND 08:53
PROVIDERS: ATTEND Emergency Medicine Undersea and Hyperbaric Medicine
DX: E11.621 Type 2 diabetes mellitus with foot ulcer (principal); L97.413 Non-pressure chronic ulcer of right heel and midfoot with necrosis of muscle; E11.610 Type 2 diabetes mellitus with diabetic neuropathic arthropathy; E11.42 Type 2 diabetes mellitus with diabetic polyneuropathy; E11.51 Type 2 diabetes mellitus with diabetic peripheral angiopathy without gangrene; E11.649 Type 2 diabetes mellitus with hypoglycemia without coma; E11.22 Type 2 diabetes mellitus with diabetic chronic kidney disease; I12.9 Hypertensive chronic kidney disease with stage 1 through stage 4 chronic kidney disease, or unspecified chronic kidney disease; N18.4 Chronic kidney disease, stage 4 (severe); E78.00 Pure hypercholesterolemia, unspecified; M19.90 Unspecified osteoarthritis, unspecified site; E66.9 Obesity, unspecified; Z68.30 Body mass index [BMI] 30.0-30.9, adult; Z87.891 Personal history of nicotine dependence; Z90.710 Acquired absence of both cervix and uterus; Z90.89 Acquired absence of other organs; Z90.49 Acquired absence of other specified parts of digestive tract
CPT/HCPCS: 17250

== ENCOUNTER → 2017-03-03 | Outpatient (CLI) | payer OTHER ==
[2017-02-13 14:43] VITALS: BP 103/36
[2017-03-03 14:02] LABS: BASO % 1 % (0-3); EOS % 2 % (0-3); HEMATOCRIT 29.5 % (36.0-47.0); HEMOGLOBIN 9.8 g/dL (12.0-15.5); LYMPH # 1.7 x10^3/uL (1.0-4.8); LYMPH % 34 % (24-48); MEAN CORPUSCULAR HEMOGLOBIN 29 pg (25-35); MEAN CORPUSCULAR HGB CONC 33 g/dL (31-37); MEAN CORPUSCULAR VOLUME 88 fL (79-100); MONO % 6 % (0-9); NEUT % 59 % (31-73); PLATELET COUNT 227 x10^3/uL (140-400); RED BLOOD COUNT 3.34 x10^6/uL (3.50-5.40); WHITE BLOOD COUNT 4.9 x10^3/uL (4.0-11.0)
[2017-03-03 14:22] LABS: ALBUMIN 3.3 g/dL (3.4-5.0); ALBUMIN/GLOBULIN RATIO 0.8 (1.0-1.7); CALCIUM 8.3 mg/dL (8.5-10.1); CREATININE 2.1 mg/dL (0.6-1.0); GFR 23.7; POTASSIUM 4.3 mmol/L (3.5-5.1); TOTAL BILIRUBIN 0.4 mg/dL (0.2-1.0); TOTAL PROTEIN 7.2 g/dL (6.4-8.2)
== END | disposition home or self-care (01) ==
LOC: SPEC 13:50
PROVIDERS: ATTEND Internal Medicine Infectious Disease
DX: E11.621 Type 2 diabetes mellitus with foot ulcer (principal); E11.22 Type 2 diabetes mellitus with diabetic chronic kidney disease; N18.4 Chronic kidney disease, stage 4 (severe); E78.00 Pure hypercholesterolemia, unspecified; Z90.710 Acquired absence of both cervix and uterus; Z79.4 Long term (current) use of insulin
CPT/HCPCS: 36415; 80053; 85025; 85651

== ENCOUNTER → 2017-03-11 | Outpatient (CLI) | payer OTHER ==
[2017-02-13 14:43] VITALS: BP 103/36
--- NOTE | 2017-03-11 10:57 | KCIC ---
Bone Densitometry History: Menopausal, Charcot foot due to diabetes. Renal disease. Findings: Bone Densitometry was performed with dual photon absorption of the lumbar spine and left proximal femur. Lumbar Spine: Bone density is 1.165 g/cm2 for L1-L4. T-score is 1.1. Z-score is 2.8. Left total femur: Bone density is 0.803 g/cm2. T-score is -1.1. Z-score is 0.0. IMPRESSION: 1. Normal bone mineral density of the lumbar spine. 2. Mild osteopenia of the left femur. World Health Organization definition of osteoporosis and osteopenia for women: normal equals T score at or above -1.0 standard deviations; osteopenia equals T score between -1.0 and -2.5 standard deviations; osteoporosis equals T score at or below -2.5 standard deviations. Electronically signed by: Gelacio Chandler MD (03/11/2017 10:53 AM) [id number]
== END | disposition home or self-care (01) ==
LOC: KCIC DEXA 09:15
PROVIDERS: ATTEND Family Medicine
DX: M81.0 Age-related osteoporosis without current pathological fracture (principal); E11.610 Type 2 diabetes mellitus with diabetic neuropathic arthropathy; Z78.0 Asymptomatic menopausal state
CPT/HCPCS: 77080

== ENCOUNTER → 2017-03-11 | Outpatient (CLI) | payer OTHER ==
[2017-03-11 17:17] LABS: ADD MAN DIFF? NO
[2017-03-11 17:22] LABS: BASO % 1 % (0-3); EOS % 2 % (0-3); HEMATOCRIT 29.9 % (36.0-47.0); HEMOGLOBIN 9.9 g/dL (12.0-15.5); LYMPH # 1.7 x10^3/uL (1.0-4.8); LYMPH % 35 % (24-48); MEAN CORPUSCULAR HEMOGLOBIN 29 pg (25-35); MEAN CORPUSCULAR HGB CONC 33 g/dL (31-37); MEAN CORPUSCULAR VOLUME 88 fL (79-100); MONO % 7 % (0-9); NEUT % 56 % (31-73); PLATELET COUNT 251 x10^3/uL (140-400); RED BLOOD COUNT 3.39 x10^6/uL (3.50-5.40); RED CELL DISTRIBUTION WIDTH 14.4 % (11.5-14.5); WHITE BLOOD COUNT 4.9 x10^3/uL (4.0-11.0)
[2017-03-11 17:51] LABS: ALBUMIN 3.5 g/dL (3.4-5.0); ALK PHOS 96 U/L (46-116); ALT (SGPT) 20 U/L (14-59); ANION GAP 11 (6-14); AST (SGOT) 20 U/L (15-37); BLOOD UREA NITROGEN 41 mg/dL (7-20); BUN/CREATININE RATIO 21 (6-20); CALCIUM 8.9 mg/dL (8.5-10.1); CARBON DIOXIDE 25 mmol/L (21-32); CHLORIDE 108 mmol/L (98-107); GFR 25.1; GLUCOSE 150 mg/dL (70-99); POTASSIUM 4.5 mmol/L (3.5-5.1); SODIUM 144 mmol/L (136-145); TOTAL BILIRUBIN 0.3 mg/dL (0.2-1.0)
[2017-03-11 18:22] LABS: SEDIMENTATION RATE 20 (0-25)
== END | disposition home or self-care (01) ==
LOC: SPEC 17:15
DX: E11.621 Type 2 diabetes mellitus with foot ulcer (principal); N18.9 Chronic kidney disease, unspecified; L97.518 Non-pressure chronic ulcer of other part of right foot with other specified severity
CPT/HCPCS: 36415; 80053; 85025; 85651

== ENCOUNTER → 2017-03-18 | Outpatient (CLI) | payer OTHER ==
[2017-03-18 17:11] LABS: ADD MAN DIFF? NO
[2017-03-18 17:22] LABS: ALBUMIN 3.5 g/dL (3.4-5.0)
[2017-03-18 17:23] LABS: ALK PHOS 94 U/L (46-116); ALT (SGPT) 17 U/L (14-59); ANION GAP 12 (6-14); AST (SGOT) 18 U/L (15-37); BLOOD UREA NITROGEN 43 mg/dL (7-20); BUN/CREATININE RATIO 24 (6-20); CALCIUM 8.8 mg/dL (8.5-10.1); CARBON DIOXIDE 24 mmol/L (21-32); CHLORIDE 107 mmol/L (98-107); CREATININE 1.8 mg/dL (0.6-1.0); GFR 28.3; GLUCOSE 143 mg/dL (70-99); POTASSIUM 4.6 mmol/L (3.5-5.1); SODIUM 143 mmol/L (136-145); TOTAL BILIRUBIN 0.3 mg/dL (0.2-1.0)
[2017-03-18 17:24] LABS: BASO % 1 % (0-3); EOS # 0.1 x10^3/uL (0.0-0.7); EOS % 1 % (0-3); HEMATOCRIT 30.2 % (36.0-47.0); LYMPH # 1.9 x10^3/uL (1.0-4.8); LYMPH % 35 % (24-48); MEAN CORPUSCULAR HEMOGLOBIN 30 pg (25-35); MEAN CORPUSCULAR HGB CONC 33 g/dL (31-37); MEAN CORPUSCULAR VOLUME 89 fL (79-100); MONO # 0.3 x10^3/uL (0.0-1.1); MONO % 5 % (0-9); NEUT # 3.1 x10^3uL (1.8-7.7); NEUT % 58 % (31-73); PLATELET COUNT 264 x10^3/uL (140-400); RED CELL DISTRIBUTION WIDTH 14.5 % (11.5-14.5); WHITE BLOOD COUNT 5.5 x10^3/uL (4.0-11.0)
[2017-03-18 17:25] LABS: SEDIMENTATION RATE 22 (0-25)
== END | disposition home or self-care (01) ==
LOC: SPEC 15:03
DX: E11.621 Type 2 diabetes mellitus with foot ulcer (principal); D63.1 Anemia in chronic kidney disease; N18.9 Chronic kidney disease, unspecified
CPT/HCPCS: 36415; 80053; 85025; 85651

== ENCOUNTER → 2017-03-18 | Outpatient (CLI) | payer OTHER | END | disposition home or self-care (01) | LOC: PMGWOUND 08:52 | DX: E11.621 Type 2 diabetes mellitus with foot ulcer (principal); L97.414 Non-pressure chronic ulcer of right heel and midfoot with necrosis of bone; E78.00 Pure hypercholesterolemia, unspecified; M19.90 Unspecified osteoarthritis, unspecified site; E11.22 Type 2 diabetes mellitus with diabetic chronic kidney disease; I12.9 Hypertensive chronic kidney disease with stage 1 through stage 4 chronic kidney disease, or unspecified chronic kidney disease; N18.4 Chronic kidney disease, stage 4 (severe); E66.9 Obesity, unspecified; Z68.30 Body mass index [BMI] 30.0-30.9, adult; Z79.4 Long term (current) use of insulin; E11.610 Type 2 diabetes mellitus with diabetic neuropathic arthropathy; E78.5 Hyperlipidemia, unspecified; E11.42 Type 2 diabetes mellitus with diabetic polyneuropathy; E11.51 Type 2 diabetes mellitus with diabetic peripheral angiopathy without gangrene; Z87.891 Personal history of nicotine dependence | CPT/HCPCS: 99214 ==

== ENCOUNTER → 2017-03-24 | Outpatient (CLI) | payer OTHER | END | disposition home or self-care (01) | LOC: PMGWOUND 08:55 | DX: E11.621 Type 2 diabetes mellitus with foot ulcer (principal); L97.414 Non-pressure chronic ulcer of right heel and midfoot with necrosis of bone; E11.610 Type 2 diabetes mellitus with diabetic neuropathic arthropathy; E11.42 Type 2 diabetes mellitus with diabetic polyneuropathy; E11.51 Type 2 diabetes mellitus with diabetic peripheral angiopathy without gangrene; E11.649 Type 2 diabetes mellitus with hypoglycemia without coma; E11.65 Type 2 diabetes mellitus with hyperglycemia; E11.22 Type 2 diabetes mellitus with diabetic chronic kidney disease; I12.9 Hypertensive chronic kidney disease with stage 1 through stage 4 chronic kidney disease, or unspecified chronic kidney disease; N18.4 Chronic kidney disease, stage 4 (severe); M19.90 Unspecified osteoarthritis, unspecified site; M81.0 Age-related osteoporosis without current pathological fracture; E78.5 Hyperlipidemia, unspecified; E78.00 Pure hypercholesterolemia, unspecified; E66.9 Obesity, unspecified; Z68.30 Body mass index [BMI] 30.0-30.9, adult; Z87.891 Personal history of nicotine dependence; Z79.4 Long term (current) use of insulin; Z90.710 Acquired absence of both cervix and uterus | CPT/HCPCS: 36415; 99214 ==

== ENCOUNTER → 2017-03-31 | Outpatient (CLI) | payer OTHER | END | disposition home or self-care (01) | LOC: PMGWOUND 08:56 | DX: E11.621 Type 2 diabetes mellitus with foot ulcer (principal); L97.414 Non-pressure chronic ulcer of right heel and midfoot with necrosis of bone; L84 Corns and callosities; E11.610 Type 2 diabetes mellitus with diabetic neuropathic arthropathy; E11.42 Type 2 diabetes mellitus with diabetic polyneuropathy; E11.51 Type 2 diabetes mellitus with diabetic peripheral angiopathy without gangrene; E11.649 Type 2 diabetes mellitus with hypoglycemia without coma; E11.65 Type 2 diabetes mellitus with hyperglycemia; E11.22 Type 2 diabetes mellitus with diabetic chronic kidney disease; I12.9 Hypertensive chronic kidney disease with stage 1 through stage 4 chronic kidney disease, or unspecified chronic kidney disease; N18.4 Chronic kidney disease, stage 4 (severe); M19.90 Unspecified osteoarthritis, unspecified site; M81.0 Age-related osteoporosis without current pathological fracture; E78.5 Hyperlipidemia, unspecified; E78.00 Pure hypercholesterolemia, unspecified; E66.9 Obesity, unspecified; Z68.30 Body mass index [BMI] 30.0-30.9, adult; Z87.891 Personal history of nicotine dependence; Z79.4 Long term (current) use of insulin; Z90.710 Acquired absence of both cervix and uterus | CPT/HCPCS: 99215 ==

== ENCOUNTER → 2017-04-14 | Outpatient (CLI) | payer OTHER | END | disposition home or self-care (01) | LOC: PMGWOUND 08:51 | DX: E11.621 Type 2 diabetes mellitus with foot ulcer (principal); L97.414 Non-pressure chronic ulcer of right heel and midfoot with necrosis of bone; L84 Corns and callosities; E11.610 Type 2 diabetes mellitus with diabetic neuropathic arthropathy; E11.42 Type 2 diabetes mellitus with diabetic polyneuropathy; E11.51 Type 2 diabetes mellitus with diabetic peripheral angiopathy without gangrene; E11.649 Type 2 diabetes mellitus with hypoglycemia without coma; E11.65 Type 2 diabetes mellitus with hyperglycemia; E11.22 Type 2 diabetes mellitus with diabetic chronic kidney disease; I12.9 Hypertensive chronic kidney disease with stage 1 through stage 4 chronic kidney disease, or unspecified chronic kidney disease; N18.4 Chronic kidney disease, stage 4 (severe); M19.90 Unspecified osteoarthritis, unspecified site; M81.0 Age-related osteoporosis without current pathological fracture; E78.5 Hyperlipidemia, unspecified; E78.00 Pure hypercholesterolemia, unspecified; E66.9 Obesity, unspecified; Z68.30 Body mass index [BMI] 30.0-30.9, adult; Z87.891 Personal history of nicotine dependence; Z79.4 Long term (current) use of insulin; Z90.710 Acquired absence of both cervix and uterus | CPT/HCPCS: 99212 ==

== ENCOUNTER → 2017-05-22 | Outpatient (CLI) | payer OTHER | END | disposition home or self-care (01) | LOC: PMGWOUND 08:51 | DX: E11.621 Type 2 diabetes mellitus with foot ulcer (principal); L97.411 Non-pressure chronic ulcer of right heel and midfoot limited to breakdown of skin; L84 Corns and callosities; E11.610 Type 2 diabetes mellitus with diabetic neuropathic arthropathy; E11.42 Type 2 diabetes mellitus with diabetic polyneuropathy; E11.51 Type 2 diabetes mellitus with diabetic peripheral angiopathy without gangrene; E11.649 Type 2 diabetes mellitus with hypoglycemia without coma; E11.65 Type 2 diabetes mellitus with hyperglycemia; E11.22 Type 2 diabetes mellitus with diabetic chronic kidney disease; I12.9 Hypertensive chronic kidney disease with stage 1 through stage 4 chronic kidney disease, or unspecified chronic kidney disease; N18.4 Chronic kidney disease, stage 4 (severe); M19.90 Unspecified osteoarthritis, unspecified site; M81.0 Age-related osteoporosis without current pathological fracture; E78.00 Pure hypercholesterolemia, unspecified; E66.9 Obesity, unspecified; Z68.30 Body mass index [BMI] 30.0-30.9, adult; Z87.891 Personal history of nicotine dependence; Z79.4 Long term (current) use of insulin; Z90.710 Acquired absence of both cervix and uterus | CPT/HCPCS: 97597 ==

== ENCOUNTER → 2017-05-27 | Outpatient (CLI) | payer OTHER | END | disposition home or self-care (01) | LOC: PMGWOUND 08:48 | DX: E11.621 Type 2 diabetes mellitus with foot ulcer (principal); L97.411 Non-pressure chronic ulcer of right heel and midfoot limited to breakdown of skin; L84 Corns and callosities; E11.610 Type 2 diabetes mellitus with diabetic neuropathic arthropathy; E11.42 Type 2 diabetes mellitus with diabetic polyneuropathy; E11.51 Type 2 diabetes mellitus with diabetic peripheral angiopathy without gangrene; E11.649 Type 2 diabetes mellitus with hypoglycemia without coma; E11.65 Type 2 diabetes mellitus with hyperglycemia; E11.22 Type 2 diabetes mellitus with diabetic chronic kidney disease; I12.9 Hypertensive chronic kidney disease with stage 1 through stage 4 chronic kidney disease, or unspecified chronic kidney disease; N18.4 Chronic kidney disease, stage 4 (severe); M19.90 Unspecified osteoarthritis, unspecified site; M81.0 Age-related osteoporosis without current pathological fracture; E78.00 Pure hypercholesterolemia, unspecified; E66.9 Obesity, unspecified; Z68.30 Body mass index [BMI] 30.0-30.9, adult; Z87.891 Personal history of nicotine dependence; Z79.4 Long term (current) use of insulin; Z90.710 Acquired absence of both cervix and uterus | CPT/HCPCS: 99214 ==

== ENCOUNTER → 2017-06-03 | Outpatient (CLI) | payer OTHER | END | disposition home or self-care (01) | LOC: PMGWOUND 09:00 | DX: E11.621 Type 2 diabetes mellitus with foot ulcer (principal); L97.411 Non-pressure chronic ulcer of right heel and midfoot limited to breakdown of skin; L84 Corns and callosities; E11.610 Type 2 diabetes mellitus with diabetic neuropathic arthropathy; E11.42 Type 2 diabetes mellitus with diabetic polyneuropathy; E11.51 Type 2 diabetes mellitus with diabetic peripheral angiopathy without gangrene; E11.649 Type 2 diabetes mellitus with hypoglycemia without coma; E11.65 Type 2 diabetes mellitus with hyperglycemia; E11.22 Type 2 diabetes mellitus with diabetic chronic kidney disease; I12.9 Hypertensive chronic kidney disease with stage 1 through stage 4 chronic kidney disease, or unspecified chronic kidney disease; N18.4 Chronic kidney disease, stage 4 (severe); M19.90 Unspecified osteoarthritis, unspecified site; M81.0 Age-related osteoporosis without current pathological fracture; E78.00 Pure hypercholesterolemia, unspecified; E66.9 Obesity, unspecified; Z68.30 Body mass index [BMI] 30.0-30.9, adult; Z87.891 Personal history of nicotine dependence; Z79.4 Long term (current) use of insulin; Z90.710 Acquired absence of both cervix and uterus | CPT/HCPCS: 99213 ==

== ENCOUNTER → 2017-10-16 | Outpatient (CLI) | payer OTHER | END | disposition home or self-care (01) | LOC: PMGWOUND 11:30 | DX: E11.621 Type 2 diabetes mellitus with foot ulcer (principal); L97.413 Non-pressure chronic ulcer of right heel and midfoot with necrosis of muscle; L84 Corns and callosities; E11.610 Type 2 diabetes mellitus with diabetic neuropathic arthropathy; E11.42 Type 2 diabetes mellitus with diabetic polyneuropathy; E11.51 Type 2 diabetes mellitus with diabetic peripheral angiopathy without gangrene; E11.22 Type 2 diabetes mellitus with diabetic chronic kidney disease; I12.9 Hypertensive chronic kidney disease with stage 1 through stage 4 chronic kidney disease, or unspecified chronic kidney disease; N18.4 Chronic kidney disease, stage 4 (severe); M19.90 Unspecified osteoarthritis, unspecified site; M81.0 Age-related osteoporosis without current pathological fracture; E78.00 Pure hypercholesterolemia, unspecified; E66.9 Obesity, unspecified; Z87.891 Personal history of nicotine dependence; Z90.710 Acquired absence of both cervix and uterus; Z79.4 Long term (current) use of insulin; Z68.30 Body mass index [BMI] 30.0-30.9, adult | CPT/HCPCS: 11042 ==

== ENCOUNTER → 2017-10-21 | Outpatient (CLI) | payer OTHER | END | disposition home or self-care (01) | LOC: PMGWOUND 11:55 | DX: E11.621 Type 2 diabetes mellitus with foot ulcer (principal); L97.413 Non-pressure chronic ulcer of right heel and midfoot with necrosis of muscle; L84 Corns and callosities; E11.610 Type 2 diabetes mellitus with diabetic neuropathic arthropathy; E11.42 Type 2 diabetes mellitus with diabetic polyneuropathy; E11.51 Type 2 diabetes mellitus with diabetic peripheral angiopathy without gangrene; E11.22 Type 2 diabetes mellitus with diabetic chronic kidney disease; I12.9 Hypertensive chronic kidney disease with stage 1 through stage 4 chronic kidney disease, or unspecified chronic kidney disease; N18.4 Chronic kidney disease, stage 4 (severe); M19.90 Unspecified osteoarthritis, unspecified site; M81.0 Age-related osteoporosis without current pathological fracture; E78.00 Pure hypercholesterolemia, unspecified; E66.9 Obesity, unspecified; Z87.891 Personal history of nicotine dependence; Z90.710 Acquired absence of both cervix and uterus; Z79.4 Long term (current) use of insulin; Z68.30 Body mass index [BMI] 30.0-30.9, adult | CPT/HCPCS: 11042; 29445 ==

== ENCOUNTER → 2017-10-23 | Outpatient (CLI) | payer OTHER | END | disposition home or self-care (01) | LOC: PMGWOUND 12:00 | PROVIDERS: ATTEND Emergency Medicine Undersea and Hyperbaric Medicine | DX: E11.621 Type 2 diabetes mellitus with foot ulcer (principal); L97.413 Non-pressure chronic ulcer of right heel and midfoot with necrosis of muscle; L84 Corns and callosities; E11.610 Type 2 diabetes mellitus with diabetic neuropathic arthropathy; E11.42 Type 2 diabetes mellitus with diabetic polyneuropathy; E11.51 Type 2 diabetes mellitus with diabetic peripheral angiopathy without gangrene; E11.22 Type 2 diabetes mellitus with diabetic chronic kidney disease; I12.9 Hypertensive chronic kidney disease with stage 1 through stage 4 chronic kidney disease, or unspecified chronic kidney disease; N18.4 Chronic kidney disease, stage 4 (severe); M19.90 Unspecified osteoarthritis, unspecified site; M81.0 Age-related osteoporosis without current pathological fracture; E78.00 Pure hypercholesterolemia, unspecified; E66.9 Obesity, unspecified; Z87.891 Personal history of nicotine dependence; Z90.710 Acquired absence of both cervix and uterus; Z79.4 Long term (current) use of insulin; Z68.30 Body mass index [BMI] 30.0-30.9, adult | CPT/HCPCS: 29445 ==

== ENCOUNTER → 2017-10-30 | Outpatient (CLI) | payer OTHER | END | disposition home or self-care (01) | LOC: PMGWOUND 09:50 | PROVIDERS: ATTEND Emergency Medicine Undersea and Hyperbaric Medicine | DX: E11.621 Type 2 diabetes mellitus with foot ulcer (principal); L97.413 Non-pressure chronic ulcer of right heel and midfoot with necrosis of muscle; I12.9 Hypertensive chronic kidney disease with stage 1 through stage 4 chronic kidney disease, or unspecified chronic kidney disease; E11.22 Type 2 diabetes mellitus with diabetic chronic kidney disease; N18.4 Chronic kidney disease, stage 4 (severe); E11.51 Type 2 diabetes mellitus with diabetic peripheral angiopathy without gangrene; E11.42 Type 2 diabetes mellitus with diabetic polyneuropathy; E11.610 Type 2 diabetes mellitus with diabetic neuropathic arthropathy; E78.00 Pure hypercholesterolemia, unspecified; E66.8 Other obesity; M81.0 Age-related osteoporosis without current pathological fracture; M13.88 Other specified arthritis, other site; L84 Corns and callosities; Z90.710 Acquired absence of both cervix and uterus; Z79.4 Long term (current) use of insulin; Z68.30 Body mass index [BMI] 30.0-30.9, adult; Z87.891 Personal history of nicotine dependence | CPT/HCPCS: 29445; 97597 ==

== ENCOUNTER → 2017-11-04 | Outpatient (CLI) | payer MEDICARE, OTHER | END | disposition home or self-care (01) | LOC: PMGWOUND 09:47 | PROVIDERS: ATTEND Emergency Medicine Undersea and Hyperbaric Medicine | DX: E11.621 Type 2 diabetes mellitus with foot ulcer (principal); L97.413 Non-pressure chronic ulcer of right heel and midfoot with necrosis of muscle; I13.10 Hypertensive heart and chronic kidney disease without heart failure, with stage 1 through stage 4 chronic kidney disease, or unspecified chronic kidney disease; E11.22 Type 2 diabetes mellitus with diabetic chronic kidney disease; N18.9 Chronic kidney disease, unspecified; E11.610 Type 2 diabetes mellitus with diabetic neuropathic arthropathy; E11.42 Type 2 diabetes mellitus with diabetic polyneuropathy; E11.51 Type 2 diabetes mellitus with diabetic peripheral angiopathy without gangrene; M81.0 Age-related osteoporosis without current pathological fracture; E78.00 Pure hypercholesterolemia, unspecified; M13.88 Other specified arthritis, other site; L84 Corns and callosities; E66.8 Other obesity; Z68.30 Body mass index [BMI] 30.0-30.9, adult; Z90.710 Acquired absence of both cervix and uterus; Z79.4 Long term (current) use of insulin; Z87.891 Personal history of nicotine dependence | CPT/HCPCS: 29445 ==

== ENCOUNTER → 2017-11-11 | Outpatient (CLI) | payer MEDICARE, OTHER | END | disposition home or self-care (01) | LOC: PMGWOUND 10:22 | PROVIDERS: ATTEND Emergency Medicine Undersea and Hyperbaric Medicine | DX: E11.621 Type 2 diabetes mellitus with foot ulcer (principal); L97.518 Non-pressure chronic ulcer of other part of right foot with other specified severity; I13.0 Hypertensive heart and chronic kidney disease with heart failure and stage 1 through stage 4 chronic kidney disease, or unspecified chronic kidney disease; E11.22 Type 2 diabetes mellitus with diabetic chronic kidney disease; N18.4 Chronic kidney disease, stage 4 (severe); I50.9 Heart failure, unspecified; E11.610 Type 2 diabetes mellitus with diabetic neuropathic arthropathy; E11.42 Type 2 diabetes mellitus with diabetic polyneuropathy; E11.51 Type 2 diabetes mellitus with diabetic peripheral angiopathy without gangrene; E78.00 Pure hypercholesterolemia, unspecified; M13.88 Other specified arthritis, other site; M81.0 Age-related osteoporosis without current pathological fracture; L84 Corns and callosities; Z90.710 Acquired absence of both cervix and uterus; Z79.4 Long term (current) use of insulin; Z87.891 Personal history of nicotine dependence | CPT/HCPCS: 99213 ==

== ENCOUNTER → 2018-08-07 | Outpatient (CLI) | payer MEDICARE, OTHER ==
--- NOTE | 2018-08-07 13:18 | KCIC ---
Bilateral digital screening mammograms with 3-D tomosynthesis: Reason for examination: Routine screening. Comparison is made to previous study dated 01/02/2010. Bilateral mammograms in CC and oblique projections were obtained with 2-D imaging and 3-D tomosynthesis imaging on a Siemens Inspiration unit and reviewed on the workstation. Interpretation was made with the benefit of CAD. The skin and nipples show no abnormalities. No abnormal axillary lymph nodes are seen. The breast parenchyma is heterogeneously dense. (Breast density: Category C.) There are multiple small nodules bilaterally measuring up to 1 cm in size. These are fairly well-circumscribed and likely represent cysts but recommend further evaluation with ultrasound. There are no suspicious calcifications. Impression: Multiple small circumscribed nodules bilaterally which probably represent cysts and measure up to 1 cm in size. Recommend further evaluation with ultrasound. Your patient's mammogram demonstrates that she has dense breast tissue (breast density category C or D), which could hide abnormalities, and if she has other risk factors for breast cancer that have been identified, she might benefit from supplemental screening tests that may be suggested by you as her ordering physician. Dense breast tissue, in and of itself, is a relatively common condition. Therefore, this information is not provided to cause undue concern, but rather to raise your awareness and to promote discussion with your patient regarding the presence of other risk factors, in addition to dense breast tissue. Your patient's mammography results will be sent to her. BI-RAD Category 0: Incomplete. Needs additional imaging evaluation. "Our facility is accredited by the [employer] Mammography Program." This patient's information has been entered into a reminder system for the patient to be notified with the results of her examination and a target date for the next mammogram. Electronically signed by: Allyson Dyer MD (08/07/2018 1:15 PM) [id number]
== END | disposition home or self-care (01) ==
LOC: KCIC MAMMO 08:48
PROVIDERS: ATTEND Internal Medicine Hematology & Oncology
DX: Z12.31 Encounter for screening mammogram for malignant neoplasm of breast (principal); N63.10 Unspecified lump in the right breast, unspecified quadrant; N63.20 Unspecified lump in the left breast, unspecified quadrant
CPT/HCPCS: 77063; 77067

== ENCOUNTER → 2018-08-19 | Outpatient (CLI) | payer MEDICARE, OTHER ==
--- NOTE | 2018-08-19 11:36 | RAD ---
EXAM: Bilateral breast ultrasound. HISTORY: Nodules on mammographic screening. Sonography is requested. COMPARISON: 08/07/2018, 01/02/2010. FINDINGS: Sonography of both breasts was performed. On the left, at the 9:00 position 2.5 cm from the nipple, there is a hypoechoic, antiparallel nodule measuring 4 x 4 x 4 mm. This may be a complicated cyst but is indeterminate. Elsewhere on the left, multiple small complicated cysts measure up to 9 mm and appear benign. A benign intramammary lymph node is noted superolaterally on the left that measures 10 x 9 mm. On the right, at the 3:00 position 3 cm from the nipple, an oval nodule is mostly anechoic with a small amount of hypoechoic material dependently. This is likely a mildly complicated cyst and measures 8 x 5 x 9 mm. This likely corresponds with a dominant nodule medially on mammography. Elsewhere on the right, multiple small complicated cysts or apocrine metaplasia appear benign. IMPRESSION: 1. BI-RADS Category 4: Suspicious abnormality--biopsy is suggested. 2. Recommend ultrasound-guided biopsy of the hypoechoic antiparallel nodule at the left 9:00 position 2.5 cm from the nipple. 3. Pending results of the above biopsy, recommend bilateral 6 month follow-up diagnostic mammography to confirm multiple likely benign nodules bilaterally. Electronically signed by: Amy Hanna MD (08/19/2018 11:33 AM) [facility]
== END | disposition home or self-care (01) ==
LOC: US 09:06
PROVIDERS: ATTEND Internal Medicine Hematology & Oncology
DX: N63.22 Unspecified lump in the left breast, upper inner quadrant (principal); N63.14 Unspecified lump in the right breast, lower inner quadrant; N60.02 Solitary cyst of left breast; Z88.0 Allergy status to penicillin; Z88.8 Allergy status to other drugs, medicaments and biological substances
CPT/HCPCS: 76641

== ENCOUNTER → 2018-09-09 | Outpatient (CLI) | payer MEDICARE, OTHER ==
[~2018-09-09] MED LIST changes: +LIDOCAINE 2%/EPI 1:100,000 20 ML VIAL. IJ ONE
--- NOTE | 2018-09-11 15:25 | RAD ---
Ultrasound-guided left breast biopsy, 09/09/2018: HISTORY: Suspicious breast nodule A previous ultrasound exam demonstrated a suspicious nodule at the 9:00 location in the left breast. Under local anesthesia, aseptic conditions and sonographic guidance the StyleJam biopsy instrument was passed along the posterior margin of this nodule via a superolateral approach. Several 12-gauge vacuum-assisted core samples were obtained and sent to pathology for evaluation. The lesion disappeared quickly during the biopsy process suggesting that it was a cyst. A biopsy marker was deposited at the biopsy site. The biopsy instrument was then removed and hemostasis obtained. Two-view postprocedural digital mammograms were then obtained to document position of the biopsy marker. The breast is again noted to be multinodular in character. There is a small amount of biopsy-related hemorrhage at the biopsy site. The patient tolerated the procedure well and left the department in good condition. The subsequent pathology report indicated the presence of fibrocystic change with stromal fibrosis and no evidence of malignancy. This is considered to be a concordant finding.
== END | disposition home or self-care (01) ==
LOC: US 10:03
PROVIDERS: ATTEND Internal Medicine Hematology & Oncology
DX: N63.20 Unspecified lump in the left breast, unspecified quadrant (principal); R92.8 Other abnormal and inconclusive findings on diagnostic imaging of breast
CPT/HCPCS: 19083; 77065; 88305; C1713; 76942

== ENCOUNTER → 2019-02-02 | Outpatient (CLI) | payer MEDICARE, OTHER ==
[~2019-02-02] MED LIST changes: -EZET10TA18 PO; +EZET10TA20 PO; -LIDOCAINE 2%/EPI 1:100,000 20 ML VIAL. IJ ONE; +LISI1TAB19 PO; -LISI1TAB5 PO
--- NOTE | 2019-02-02 19:49 | KCIC ---
Bilateral diagnostic digital mammograms with 3-D tomosynthesis: Reason for examination: Follow-up nodules. Comparison is made to previous studies dated 08/07/2018 and 01/02/2010. Bilateral mammograms in CC and oblique projections were obtained with 2-D imaging and 3-D tomosynthesis imaging on a Siemens Inspiration unit and reviewed on the workstation. Interpretation was made with the benefit of CAD. The skin and nipples show no abnormalities. No abnormal axillary lymph nodes are seen. The breast parenchyma shows scattered fatty and fibroglandular density. (Breast density: Category B.) There continue to be multiple circumscribed nodules bilaterally which show no significant change. There are no new dominant masses, suspicious calcifications or architectural distortion. Impression: No evidence of malignancy. Ultrasound to follow. BI-RAD Category 0: Incomplete. Needs additional imaging evaluation. Right breast ultrasound: Comparison is made to previous study dated 08/19/2018. Right whole breast ultrasound including evaluation of all 4 quadrants and the retroareolar and axillary regions of the right breast was performed. There continue to be multiple small anechoic and hypoechoic lesions throughout the breasts which are subcentimeter in size and are consistent with simple cysts and fibrocystic changes. These nodules show no significant interval change. No suspicious nodules are seen. No abnormal appearing lymph nodes are seen in the axilla. IMPRESSION: Continued presence of multiple small benign-appearing cystic and fibrocystic lesions without interval change. Recommend routine mammographic follow-up. BI-RADS Category 2: Benign. "Our facility is accredited by the [employer] Mammography [employer]." This patient's information has been entered into a reminder system for the patient to be notified with the results of her examination and a target date for the next mammogram. Electronically signed by: Allyson Dyer MD (02/02/2019 7:45 PM) [facility] [id number]
== END | disposition home or self-care (01) ==
LOC: KCIC MAMMO 08:51
PROVIDERS: ATTEND Internal Medicine Hematology & Oncology
DX: N63.20 Unspecified lump in the left breast, unspecified quadrant (principal); N63.10 Unspecified lump in the right breast, unspecified quadrant; Z88.0 Allergy status to penicillin; Z88.8 Allergy status to other drugs, medicaments and biological substances
CPT/HCPCS: 76641; 77066; G0279; 77062

== ENCOUNTER → 2019-12-15 | Outpatient (CLI) | payer MEDICARE, OTHER ==
[~2019-12-15] MED LIST changes: -ERTA1VIA IJ; +ERTA1VIA16 IJ; -LISI1TAB19 PO; +LISI1TAB37 PO
--- NOTE | 2019-12-15 10:24 | KCIC ---
EXAM: DUAL ENERGY X-RAY ABSORPTIOMETRY (DEXA). HISTORY: Long-term steroid use, postmenopausal screening. FINDINGS: The lowest measured T-score is -1.4 in the left femur, based on a bone mineral density of 0.768 g/cm^2. Refer to the worksheets for full detail. In comparison with the prior study of 03/11/2017, average bone mineral density at the lumbar spine has changed +1.5%, while the average density at the left hip has changed -4.3%. IMPRESSION: Low bone mass. Bone mineral density yields a T-score between -1.0 and -2.5. Fracture risk is increased. FRAX was not calculated. METHODOLOGY: Dual energy x-ray absorptiometry was performed to measure bone mineral density. The following analysis is based on the 2019 Official Positions of the International Society for Clinical Densitometry: Measurements of the hips and the average of L1-L4 are preferred. When the spine and/or hip cannot be feasibly measured or interpreted, or in the setting of hyperparathyroidism, distal radial bone mineral density may be measured. The lumbar spine T-score is based on the average bone mineral density of L1-L4. In the setting of artifact or anatomic abnormality, some lumbar levels may be excluded, and the remaining levels used for calculation. A single lumbar level is not used for diagnosis, and if only a single level is available for assessment, another anatomic site will be used to assign a diagnosis. The hip T-score is based on the bone mineral density measurement of the femoral neck or total proximal femur of either side, whichever is lowest. Bilateral mean values are not used for diagnosis. The forearm T-score is derived from 33% of the distal radius of the nondominant forearm. For postmenopausal and perimenopausal women, and men age 50 or older, of all ethnic groups, T-scores are calculated through comparison of the current measurement with the NHANES III database standard for females aged 20-29 years. The lowest T-score of the evaluated anatomic sites is used to assign a diagnosis based on the World Health Organization densitometric classification. In premenopausal females and males younger than age 50, a Z-score is calculated based on population specific reference data for patient sex and self-reported ethnicity. Electronically signed by: Amy Hanna MD (12/15/2019 10:21 AM) [id number]
== END ==
LOC: KCIC DEXA 08:03
PROVIDERS: ATTEND Internal Medicine
DX: Z00.00 Encounter for general adult medical examination without abnormal findings (principal); Z79.52 Long term (current) use of systemic steroids; Z78.0 Asymptomatic menopausal state
CPT/HCPCS: 77080

== ENCOUNTER → 2020-02-07 | Outpatient (CLI) | payer MEDICARE, OTHER ==
--- NOTE | 2020-02-07 17:14 | KCIC ---
Bilateral digital screening mammograms and tomosynthesis Reason for examination: Routine screening. History of benign breast biopsy. Comparison is made to previous study dated mammogram February 03, 2020 and priors Routine CC and MLO digital views obtained. Interpretation was made with the benefit of CAD. The skin and nipples show no abnormalities. No abnormal lymph nodes are seen. The breast parenchyma is scattered fibroglandular elements. (Breast density: Category B.) There are no suspicious masses, suspicious calcifications or architectural distortions. Bilateral nodular densities have decreased in number and size since the prior exam. Left breast biopsy clip. Benign calcifications. Impression: Negative mammogram. Recommend routine screening. BI-RADS Category 2: Benign. "Our facility is accredited by the [employer] Mammography [employer]." This patient's information has been entered into a reminder system for the patient to be notified with the results of her examination and a target date for the next mammogram. Electronically signed by: Ezequiel Donis MD (02/07/2020 5:11 PM) [id number]
== END ==
LOC: KCIC MAMMO 12:20
PROVIDERS: ATTEND Internal Medicine
DX: Z12.31 Encounter for screening mammogram for malignant neoplasm of breast (principal)
CPT/HCPCS: 77063; 77067